=== PATIENT | male | born 1935 | race African-American/Black ===

== ENCOUNTER → 2018-01-08 | Outpatient (CLI) | payer MEDICARE, BC ==
--- NOTE | 2018-01-08 11:04 | CT ---
EXAMINATION TYPE: CT chest wo con DATE OF EXAM: 01/08/2018 COMPARISON: NONE HISTORY: Right lower lung hilar fullness opacity CT DLP: 1032.1 mGycm, Automated exposure control for dose reduction was used. CONTRAST: None TECHNIQUE: Axial images were obtained at 5 mm thick sections. Reconstructed images are reviewed on [email or web address] computer in the coronal plane. FINDINGS: Thyroid is not well visualized during this exam. There is a retroesophageal right subclavia n artery. No suspicious lung nodules or focal infiltrates are present. There may be some thickening of the gino r fissure on the right than the posterior right upper lobe. This was not present previously. Thickeni ng is 1.0 cm. Series 3 image 21. Clinical consideration for atelectasis in the dependent portions of the lungs is recommended. No enlarged mediastinal or hilar adenopathy is evident. The ascending aorta diameter at the level o f the main pulmonary artery is 4.5 cm. The main pulmonary artery diameter at the bifurcation is 5.5 cm. Correlate for pulmonary hypertension. The heart size is enlarged. Coronary artery calcification i s present. Limited CT sections are obtained through the upper abdomen. Abdomen is essentially unremarkable. IMPRESSIONS: 1. 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 2. Marked prominence of the pulmonary arteries with a diameter of 5.5 cm which can be compatible with pulmonary hypertension. 3. Some posterior pleural thickening or fissure thickening may be present. Follow-up is recommended. 4. Retroesophageal right subclavian artery
== END | disposition home or self-care (01) ==
LOC: RADCTMAIN 08:11
PROVIDERS: ATTEND Internal Medicine
DX: I71.2 Thoracic aortic aneurysm, without rupture (principal)
CPT/HCPCS: 71250

== ENCOUNTER 2018-01-30 08:35 | Inpatient (IN) | payer MEDICARE, BC ==
[2018-01-30] MEDS ORDERED: SODIUM CHLORIDE 0.9% 1,000 ML IV ONE (10:11)
[2018-01-30] MEDS ORDERED: fentaNYL (PF) 50 MCG/ML 2 ML AMP IV ONE (11:15)
[2018-01-30] MEDS ORDERED: LIDOCAINE 2% INJ 20 MG/ML SQ ONE (11:20)
[2018-01-30] MEDS ORDERED: VERAPAMIL SYRINGE (5 MG/10 ML) INTRAARTER ONE (11:22)
[2018-01-30] MEDS ORDERED: BIVALIRUDIN BOLUS 250 MG/50 ML IV ONE (11:28)
[2018-01-30] MEDS ORDERED: BIVALIRUDIN 250 MG in SODIUM CHLORIDE 0.9% 40 ML IV ONE (11:29)
[2018-01-30] MEDS ORDERED: MIDAZOLAM 2 MG/2 ML VIAL IV ONE (11:34)
[2018-01-30] MEDS ORDERED: CLOPIDOGREL 75 MG TAB PO ONE (11:34)
[2018-01-30] MEDS ORDERED: IOPAMIDOL-370 125ML BTL INJ ONE (11:46)
[2018-01-30] MEDS ORDERED: BIVALIRUDIN 250 MG in SODIUM CHLORIDE 0.9% 50 ML IV ONE (11:59)
[2018-01-30] MEDS ORDERED: IOPAMIDOL-370 100ML BTL INJ ONE (12:04)
[2018-01-30] MEDS ORDERED: NITROGLYCERIN SL TABS 0.4 MG TAB SUBLINGUAL PRN (12:24)
[2018-01-30] MEDS ORDERED: MAG HYDROX/AL HYDROX/SIMETH 30 ML CUP PO PRN (12:24)
[2018-01-30] MEDS ORDERED: RX INFO: IV CONTRAST WAS GIVEN 1 EACH MISC MISCELLANE PRN (12:24)
[2018-01-30] MEDS ORDERED: ATROPINE SULFATE 0.1 MG/ML 10ML SYRINGE IV PRN (12:24)
[2018-01-30] MEDS ORDERED: SODIUM CHLORIDE 0.9% 1,000 ML IV SCH (12:30)
--- NOTE | 2018-01-30 12:51 | PTCA ---
PERCUTANEOUSTRANS CORORONARY ANGIOGRAPHY CORONARY ANGIOPLASTY PROCEDURE Mr. Feldman is an 82-year-old male with known history of paroxysmal atrial fibrillation, history of hypertension, hyperlipidemia, history of chronic kidney disease, who presented to [facility] with symptoms of chest discomfort and paroxysmal atrial fibrillation with elevation of his troponin. He was evaluated by Dr. Rodriguez and subsequently underwent cardiac catheterization, was found to have severe critical disease involving the mid LAD and right coronary artery. In view of that, and after re-evaluating his renal function, recommendation was made regarding angioplasty and stenting. The procedure as well as the risks and the complication were discussed with the patient who is in full understanding and agreement. PROCEDURE: Patient was brought to slab puller in a fasting semi-sedated state after receiving fentanyl and Benadryl and achieving moderate conscious sedated state. Using Xylocaine anesthesia in the Seldinger technique, a 6-German sheath was introduced in the right radial artery. Selective right coronary angiography performed using 6-German FR4 guiding catheter. After cannulating the right coronary ostium, a 0.014 balanced medium weight J wire was advanced across the lesion and a 0.014 whisper J-wire was advanced, positioned distally. Subsequently, a 4.0 x 12 mm Xience Alpine stent was deployed, postdilated at 16 atmospheres. After the last inflation, after appropriate wait , the balloon and the guidewire were withdrawn back in the guiding catheter. Images were obtained and repeated. Those images reveal stable successful stenting. At that point, the guiding catheter, the balloon and the guidewire were removed and a 6-German EBU 3.75 guiding catheter introduced in the system cannulating the left main and a 0.014 balanced medium weight J-wire was advanced in position in the left circumflex. Subsequently, a whisper J-wire was advanced in the distal LAD. Subsequently, a 3.5 x 18 mm Xience Alpine stent was advanced, deployed and post dilated at 16 atmospheres. After the last inflation, after appropriate wait, the balloon and the guidewire were withdrawn back in the guiding catheter. Images were obtained and repeated. Those images reveal stable successful stenting. At that point, the guiding catheter, the balloon and the guidewire were removed. The sheath was removed. Hemostasis was obtained with deployment of a TR band. There was no immediate complication. Patient is returned to his room in stable condition. Of note, the patient received Angiomax per protocol as well as oral loading dose of clopidogrel. He had chest discomfort and EKG changes with inflation that resolved at the end of the procedure. RESULTS: 1. Successful stenting of the mid right coronary artery with reduction of stenosis from 80% to less than 5%. 2. Successful stenting of the mid left anterior descending artery with reduction in stenosis from 90% to 0%. RECOMMENDATION: Patient will be continued on aspirin, Plavix, beta rashaun and a statin. Anticoagulation will be initiated because of the history of paroxysmal atrial fibrillation. The finding and recommendations were discussed with the patient and his family who are in full understanding and agreement. His renal function will be followed closely. Duration of procedure: 48 minutes. MMODL / IJN: [id number] / GUERRERO
--- NOTE | 2018-01-30 12:54 | LTR ---
January 30, 2018 Re: Jayce Feldman Dear Dr. Michel; I had the opportunity to perform coronary angioplasty and stenting on Mr. Feldman at [facility] on the 30 of January and a full copy of the procedure note will be forwarded to you. In brief, he underwent successful stenting of the mid right coronary artery and the left anterior descending artery using drug-eluting stents. I am hopeful that this procedure will stabilize his status and depending on his progress, further recommendations will be made. Thank you again for allowing me the opportunity to particulate in his care, please feel free to call for any questions. Sincerely yours, MD ANEL Romero / SHARON: [id number] /
[2018-01-30 13:16] VITALS: BMI 43.5
[2018-01-30] MEDS: hydrALAZINE HCL 50 MG TAB PO SCH ×2 (16:20→20:38)
[2018-01-30] MEDS: PANTOPRAZOLE 40 MG TABLET PO SCH (16:20)
--- NOTE | 2018-01-30 16:20 | P.HPIM ---
History of Present Illness H&P Date: 01/30/18 Jayce Feldman is an 82-year-old male who was recently admitted to [facility] after having an episode of chest pain, patient had evidence of non-ST elevation myocardial infarction, he underwent cardiac catheterization by Dr. Mckeon at [facility] and had evidence of significant stenosis in the right coronary artery and in the left anterior descending artery, he was transferred to [facility] for angioplasty. Patient has a known history of hypertension, hyperlipidemia, hypothyroidism, chronic renal insufficiency, and history of paroxysmal atrial fibrillation. Past Medical History Past Medical History: Heart Failure, COPD, Eye Disorder, GERD/Reflux, Hypertension, Osteoarthritis (OA), Prostate Disorder, Sleep Apnea/CPAP/BIPAP, Thyroid Disorder Additional Past Medical History / Comment(s): uses oxygen 2l @[facility], gout, some kidney issues in past, but nothing currently, doesn't uses CPAP, one episode of CHF several years ago, but nothing since, anemia History of Any Multi-Drug Resistant Organisms: None Reported Past Surgical History: Joint Replacement, Orthopedic Surgery Additional Past Surgical History / Comment(s): left knee replaced, cataract surg., ORIF both legs Past Anesthesia/Blood Transfusion Reactions: No Reported Reaction Past Psychological History: No Psychological Hx Reported Smoking Status: Former smoker Past Alcohol Use History: None Reported Additional Past Alcohol Use History / Comment(s): quit smoking 25 yrs. ago, > ppd for 40 yrs. Past Drug Use History: None Reported - Past Family History Brother(s) Family Medical History: Cancer Medications and Allergies Home Medications Medication Instructions Recorded Confirmed Type Allopurinol [Zyloprim] 300 mg PO DAILY 08/11/17 01/30/18 History Ergocalciferol [Vitamin D2] 50,000 unit PO WE 08/11/17 01/30/18 History Ferrous Sulfate [Feosol] 325 mg PO BID 08/11/17 01/30/18 History Furosemide [Lasix] 40 mg PO BID 08/11/17 01/30/18 History Levothyroxine Sodium [Synthroid] 25 mcg PO DAILY 08/11/17 01/30/18 History Montelukast [Singulair] 10 mg PO DAILY 08/11/17 01/30/18 History Omeprazole [PriLOSEC] 20 mg PO BID 08/11/17 01/30/18 History Terazosin HCl 10 mg PO HS 08/11/17 01/30/18 History hydrALAZINE HCL [Apresoline] 50 mg PO TID 08/11/17 01/30/18 History Indacaterol/Glycopyrrolate 1 puff INHALATION RT-DAILY 08/12/17 01/30/18 History [Utibron Neohaler 27.5-15.6 Mcg] Apixaban [Eliquis] 2.5 mg PO BID 01/30/18 01/30/18 History Diltiazem Oral [Cardizem Oral] 60 mg PO BID 01/30/18 01/30/18 History Metoprolol Succinate [Toprol XL] 100 mg PO DAILY 01/30/18 01/30/18 History Allergies Allergy/AdvReac Type Severity Reaction Status Date / Time Penicillins Allergy Itching Verified 01/30/18 13:57 Tetanus Vaccines and Toxoid AdvReac Swelling Verified 01/30/18 13:57 Physical Exam Vitals: Vital Signs Temp Pulse Pulse Resp BP BP Pulse Ox 01/30/18 15:09 97.5 F L 60 18 95/55 96 01/30/18 14:09 97.2 F L 65 18 109/50 98 01/30/18 13:39 65 18 124/53 97 01/30/18 13:09 97 F L 66 18 99/58 95 01/30/18 10:00 98.1 F 74 20 129/77 125/68 92 L Intake and Output 01/30/18 01/30/18 01/30/18 06:59 14:59 22:59 Intake Total 275 Balance 275 Intake: IV 175 Intake, IV Titration 100 Amount Sodium Chloride 0.9% 1, 100 000 ml @ 100 mls/hr IV . Q10H [facility] Rx#:[id number] Other: Weight 130 kg 130 kg In general patient is alert and oriented 3 in no apparent distress HEENT head normocephalic and atraumatic Neck is supple no JVD no goiter no lymphadenopathy Chest exam reveals a few scattered crackles no wheezing Cardiac exam reveals regular heart sounds no murmurs Abdomen is soft nontender no organomegaly Extremity exam reveals no edema no cyanosis or clubbing Thrombosis Risk Factor Assmnt - Choose All That Apply Each Factor Represents 1 point: Abnormal pulmonary function (COPD), Obesity ( BMI >25) Each Risk Factor Represents 3 Points: Age 75 years or older Thrombosis Risk Factor Assessment Total Risk Factor Score: 5 Thrombosis Risk Factor Assessment Level: High Risk Assessment and Plan Plan: #1 non-ST elevation myocardial infarction #2 hypertension #3 hyperlipidemia #4 hypothyroidism #5 mild chronic renal insufficiency #6 paroxysmal atrial fibrillation #7 underlying history of asthma Patient is admitted for angioplasty and stent placement Will follow during this admission for medical management Medications reviewed and reordered Will recheck labs in a.m. Will follow closely
[2018-01-30] MEDS: ATORVASTATIN 80 MG TAB PO SCH (20:37)
[2018-01-30] MEDS: DOXAZOSIN 4 MG TAB PO SCH (20:37)
[2018-01-30] MEDS: FERROUS SULFATE 325 MG TAB PO SCH (20:38)
[2018-01-30] MEDS: ZOLPIDEM 5 MG TAB PO PRN (21:25)
[2018-01-31] MEDS: PANTOPRAZOLE 40 MG TABLET PO SCH ×2 (06:25→17:03)
[2018-01-31] MEDS: LEVOTHYROXINE 25 MCG TAB PO SCH (06:26)
[2018-01-31 06:45] LABS: Anisocytosis Slight; Basophils % (A) 0 %; Eosinophils # (A) 0.2 k/uL (0-0.7); Eosinophils % (A) 4 %; HCT 33.2 % (39.0-53.0); Hypochromasia Marked; Lymphocytes # (A) 0.9 k/uL (1.0-4.8); Lymphocytes % (A) 18 %; MCH 23.9 pg (25.0-35.0); MCHC 30.1 g/dL (31.0-37.0); MCV 79.3 fL (80.0-100.0); Mean Platelet Volume 7.8; Microcytosis Slight; Monocytes # (A) 0.4 k/uL (0-1.0); Monocytes % (A) 9 %; Neutrophils # (A) 3.5 k/uL (1.3-7.7); Neutrophils % (A) 67 %; RBC 4.19 m/uL (4.30-5.90); RDW 18.5 % (11.5-15.5); WBC 5.2 k/uL (3.8-10.6)
[2018-01-31 07:11] LABS: Albumin 3.4 g/dL (3.5-5.0); Calcium 8.7 mg/dL (8.4-10.2); Total Bilirubin 0.2 mg/dL (0.2-1.3); Total Protein 5.8 g/dL (6.3-8.2)
[2018-01-31 07:12] LABS: Platelet Count 95 k/uL (150-450)
[2018-01-31] MEDS: UTIBRON NEOHALER INHALATION SCH (07:59)
[2018-01-31] MEDS: FUROSEMIDE 40 MG TAB PO SCH (09:49)
[2018-01-31] MEDS: METOPROLOL SUCCINATE (ER) 100 MG TAB.ER.24H PO SCH (09:49)
[2018-01-31] MEDS: ALLOPURINOL 300 MG TAB PO SCH (09:49)
[2018-01-31] MEDS: MONTELUKAST 10 MG TAB PO SCH (09:49)
[2018-01-31] MEDS: FERROUS SULFATE 325 MG TAB PO SCH ×2 (09:49→20:46)
[2018-01-31] MEDS: hydrALAZINE HCL 50 MG TAB PO SCH ×3 (09:49→20:46)
[2018-01-31] MEDS: ASPIRIN 81 MG PO SCH (09:50)
[2018-01-31] MEDS ORDERED: ONDANSETRON 4 MG/2 ML VIAL IVP STA (11:55)
[2018-01-31] MEDS ORDERED: ONDANSETRON 4 MG/2 ML VIAL IVP PRN (11:58)
--- NOTE | 2018-01-31 12:28 | P.PN ---
Subjective Progress Note Date: 01/31/18 Jayce Feldman is an 82-year-old male who was recently admitted to [facility] after having an episode of chest pain, patient had evidence of non-ST elevation myocardial infarction, he underwent cardiac catheterization by Dr. Mckeon at [facility] and had evidence of significant stenosis in the right coronary artery and in the left anterior descending artery, he was transferred to [facility] for angioplasty. Patient has a known history of hypertension, hyperlipidemia, hypothyroidism, chronic renal insufficiency, and history of paroxysmal atrial fibrillation. On 01/31/2018 patient is alert and oriented 3 in no apparent distress, he is complaining of generalized weakness and feeling that his knees are buckling down and is and able to walk, otherwise he denies any complaints there is no fever or chills no headache no dizziness no chest pain or shortness of breath no cough no nausea or vomiting no abdominal pain no diarrhea and no urinary symptoms. Objective - Vital Signs Vital signs: Vital Signs Temp 97.0 F L 01/31/18 12:00 Pulse 84 01/31/18 12:00 Resp 18 01/31/18 12:00 BP 143/74 01/31/18 12:00 Pulse Ox 91 L 01/31/18 12:00 Intake & Output 01/30/18 01/31/18 01/31/18 18:59 06:59 18:59 Intake Total 719 120 Output Total 525 Balance 719 -525 120 Weight 130 kg 130.5 kg Intake: IV 175 Intake, IV Titration 100 Amount Sodium Chloride 0.9% 1, 100 000 ml @ 100 mls/hr IV . Q10H [facility] Rx#:[id number] Oral 444 120 Output: Urine 525 Other: # Voids 1 - Exam In general patient is alert and oriented 3 in no apparent distress HEENT head normocephalic and atraumatic Neck is supple no JVD no goiter no lymphadenopathy Chest exam reveals a few scattered crackles no wheezing Cardiac exam reveals regular heart sounds no murmurs Abdomen is soft nontender no organomegaly Extremity exam reveals no edema no cyanosis or clubbing - Labs CBC & Chem 7: 01/31/18 06:20 01/31/18 06:20 Labs: Abnormal Lab Results - Last 24 Hours (Table) 01/31/18 01/31/18 Range/Units 06:20 06:20 RBC 4.19 L (4.30-5.90) m/uL Hgb 10.0 L (13.0-17.5) gm/dL Hct 33.2 L (39.0-53.0) % MCV 79.3 L (80.0-100.0) fL MCH 23.9 L (25.0-35.0) pg MCHC 30.1 L (31.0-37.0) g/dL RDW 18.5 H (11.5-15.5) % Plt Count 95 L (150-450) k/uL Lymphocytes # 0.9 L (1.0-4.8) k/uL Carbon Dioxide 32 H (22-30) mmol/L BUN 38 H (9-20) mg/dL Creatinine 2.00 H (0.66-1.25) mg/dL Total Protein 5.8 L (6.3-8.2) g/dL Albumin 3.4 L (3.5-5.0) g/dL Assessment and Plan Plan: #1 non-ST elevation myocardial infarction #2 hypertension #3 hyperlipidemia #4 hypothyroidism #5 mild chronic renal insufficiency #6 paroxysmal atrial fibrillation #7 underlying history of asthma #8 generalized weakness was gait disturbance Will consult physical therapy patient may need to go to a rehab if he does not improve. Patient is admitted for angioplasty and stent placement Will follow during this admission for medical management Medications reviewed and reordered Will recheck labs in a.m. Will follow closely
[2018-01-31] MEDS: CLOPIDOGREL 75 MG TAB PO SCH (13:31)
[2018-01-31] MEDS ORDERED: METOPROLOL TARTRATE 50 MG TAB PO STA (14:30)
[2018-01-31] MEDS: ATORVASTATIN 80 MG TAB PO SCH (20:45)
[2018-01-31] MEDS: DOXAZOSIN 4 MG TAB PO SCH (20:46)
--- NOTE | 2018-01-31 21:48 | PN ---
PROGRESS NOTE Mr. Feldman is a gentleman with paroxysmal A. fib., hypertension, hyperlipidemia, presented with a non-ST elevation OR and underwent stenting of [address] Cordon yesterday and is doing well. He is on home oxygen, resting comfortably. I am recommending that he can be discharged later on today after he ambulates. His vital signs are stable. His right radial cath site is clean and dry with a good pulse. S1, S2 heard normally. Heart sounds heard distantly. Short systolic murmur noted. Lungs reveal bilateral diminished air entry. Abdomen is soft. Lower extremities reveal diminished pulses. Central nervous system was grossly within normal limits. We will continue current medical regimen and discharge him if he remains stable. MMODL / IJN: [id number] /
[2018-02-01] MEDS: LEVOTHYROXINE 25 MCG TAB PO SCH (06:27)
[2018-02-01] MEDS: PANTOPRAZOLE 40 MG TABLET PO SCH ×2 (06:28→17:22)
[2018-02-01 06:50] LABS: Albumin 3.3 g/dL (3.5-5.0); Calcium 8.4 mg/dL (8.4-10.2); Potassium 5.4 mmol/L (3.5-5.1); Total Bilirubin 0.2 mg/dL (0.2-1.3); Total Protein 5.6 g/dL (6.3-8.2)
[2018-02-01 06:52] LABS: Anisocytosis Slight; Basophils % (A) 0 %; Eosinophils # (A) 0.1 k/uL (0-0.7); Eosinophils % (A) 3 %; HCT 32.2 % (39.0-53.0); HGB 9.6 gm/dL (13.0-17.5); Hypochromasia Marked; Lymphocytes # (A) 0.8 k/uL (1.0-4.8); Lymphocytes % (A) 15 %; MCH 23.6 pg (25.0-35.0); MCHC 29.9 g/dL (31.0-37.0); MCV 78.8 fL (80.0-100.0); Mean Platelet Volume 7.7; Microcytosis Slight; Monocytes # (A) 0.3 k/uL (0-1.0); Monocytes % (A) 7 %; Neutrophils # (A) 3.6 k/uL (1.3-7.7); Neutrophils % (A) 73 %; Platelet Count 115 k/uL (150-450); RBC 4.09 m/uL (4.30-5.90); RDW 18.2 % (11.5-15.5); WBC 4.9 k/uL (3.8-10.6)
[2018-02-01] MEDS: UTIBRON NEOHALER INHALATION SCH (07:36)
[2018-02-01] MEDS: MONTELUKAST 10 MG TAB PO SCH (08:04)
[2018-02-01] MEDS: ALLOPURINOL 300 MG TAB PO SCH (08:04)
[2018-02-01] MEDS: ASPIRIN 81 MG PO SCH (08:04)
[2018-02-01] MEDS: CLOPIDOGREL 75 MG TAB PO SCH (08:04)
[2018-02-01] MEDS: METOPROLOL SUCCINATE (ER) 100 MG TAB.ER.24H PO SCH (08:05)
[2018-02-01] MEDS: FERROUS SULFATE 325 MG TAB PO SCH ×2 (08:05→20:33)
[2018-02-01] MEDS: hydrALAZINE HCL 50 MG TAB PO SCH ×3 (08:05→23:33)
[2018-02-01] MEDS ORDERED: SODIUM POLYSTYRENE SULFONATE 15 GM/60 ML BOTTLE PO STA (10:35)
--- NOTE | 2018-02-01 10:38 | P.PN ---
Subjective Progress Note Date: 02/01/18 Jayce Feldman is an 82-year-old male who was recently admitted to [facility] after having an episode of chest pain, patient had evidence of non-ST elevation myocardial infarction, he underwent cardiac catheterization by Dr. Mckeon at [facility] and had evidence of significant stenosis in the right coronary artery and in the left anterior descending artery, he was transferred to [facility] for angioplasty. Patient has a known history of hypertension, hyperlipidemia, hypothyroidism, chronic renal insufficiency, and history of paroxysmal atrial fibrillation. On 01/31/2018 patient is alert and oriented 3 in no apparent distress, he is complaining of generalized weakness and feeling that his knees are buckling down and is and able to walk, otherwise he denies any complaints there is no fever or chills no headache no dizziness no chest pain or shortness of breath no cough no nausea or vomiting no abdominal pain no diarrhea and no urinary symptoms. On 02/01/2018 patient is alert and oriented 3, complaining of weakness and difficulty walking, otherwise he denies any complaints, kidney function has worsened since yesterday, creatinine is up from 2-2.5 potassium is up to 5.4 at this time will give a stat dose of Kayexalate Will consult nephrology will continue with physical therapy and occupational therapy and consult Dr. Jules for possible rehab admission post discharge Objective - Vital Signs Vital signs: Vital Signs Temp 97.2 F L 02/01/18 08:00 Pulse 84 02/01/18 08:00 Resp 20 02/01/18 08:00 BP 123/78 02/01/18 08:00 Pulse Ox 95 02/01/18 08:00 Intake & Output 01/31/18 02/01/18 02/01/18 18:59 06:59 18:59 Intake Total 360 480 Balance 360 480 Weight 119.5 kg Intake: Oral 360 480 Other: # Voids 3 1 - Exam In general patient is alert and oriented 3 in no apparent distress HEENT head normocephalic and atraumatic Neck is supple no JVD no goiter no lymphadenopathy Chest exam reveals a few scattered crackles no wheezing Cardiac exam reveals regular heart sounds no murmurs Abdomen is soft nontender no organomegaly Extremity exam reveals no edema no cyanosis or clubbing - Labs CBC & Chem 7: 02/01/18 06:07 02/01/18 06:07 Labs: Abnormal Lab Results - Last 24 Hours (Table) 02/01/18 02/01/18 Range/Units 06:07 06:07 RBC 4.09 L (4.30-5.90) m/uL Hgb 9.6 L (13.0-17.5) gm/dL Hct 32.2 L (39.0-53.0) % MCV 78.8 L (80.0-100.0) fL MCH 23.6 L (25.0-35.0) pg MCHC 29.9 L (31.0-37.0) g/dL RDW 18.2 H (11.5-15.5) % Plt Count 115 L (150-450) k/uL Lymphocytes # 0.8 L (1.0-4.8) k/uL Potassium 5.4 H (3.5-5.1) mmol/L Carbon Dioxide 32 H (22-30) mmol/L BUN 41 H (9-20) mg/dL Creatinine 2.50 H (0.66-1.25) mg/dL Total Protein 5.6 L (6.3-8.2) g/dL Albumin 3.3 L (3.5-5.0) g/dL Assessment and Plan Plan: #1 non-ST elevation myocardial infarction #2 hypertension #3 hyperlipidemia #4 hypothyroidism #5 acute on chronic renal failure worsening creatinine is up to 2.5 today Will consult nephrology #6 paroxysmal atrial fibrillation #7 underlying history of asthma #8 generalized weakness was gait disturbance Will consult physical therapy patient may need to go to a rehab if he does not improve. #9 hyperkalemia Will give a dose of Kayexalate Patient is admitted for angioplasty and stent placement Will follow during this admission for medical management Medications reviewed and reordered Will recheck labs in a.m. Will follow closely
[2018-02-01] MEDS: FUROSEMIDE 40 MG TAB PO SCH (11:08)
--- NOTE | 2018-02-01 16:43 | PN ---
PROGRESS NOTE Mr. Jayce Feldman was supposed to be discharged yesterday but developed atrial fibrillation and his discharge was delayed. He is in sinus rhythm today, doing well. He is walking but having a lot of difficulty with his leg strength. He is usually quite limited in activity, uses a walker, but seems to have worsened. He was advised to have some physical therapy and when the patient feels better and stable, he can be discharged. Otherwise, I will leave the discharge timing to Dr. Michel. Vitals are stable. S1-S2 heard normally. Heart sounds are distantly. Lungs are clear. Abdomen and lower extremity exam unchanged. Right radial cath site is clean and dry. The patient can be discharged whenever it is okay with the admitting doctor. Continue current medications for now. MMODL / IJN: [id number] /
[2018-02-01] MEDS: ATORVASTATIN 80 MG TAB PO SCH (20:33)
[2018-02-01] MEDS: DOXAZOSIN 4 MG TAB PO SCH (20:33)
[2018-02-02 06:00] LABS: Anisocytosis Slight; Basophils % (A) 0 %; Eosinophils # (A) 0.2 k/uL (0-0.7); Eosinophils % (A) 4 %; HCT 31.9 % (39.0-53.0); HGB 9.6 gm/dL (13.0-17.5); Hypochromasia Marked; Lymphocytes # (A) 1.1 k/uL (1.0-4.8); Lymphocytes % (A) 23 %; MCH 23.8 pg (25.0-35.0); MCHC 30.2 g/dL (31.0-37.0); MCV 78.6 fL (80.0-100.0); Mean Platelet Volume 7.2; Microcytosis Slight; Monocytes # (A) 0.4 k/uL (0-1.0); Monocytes % (A) 9 %; Neutrophils # (A) 2.9 k/uL (1.3-7.7); Neutrophils % (A) 61 %; Platelet Count 119 k/uL (150-450); RBC 4.06 m/uL (4.30-5.90); RDW 18.3 % (11.5-15.5); WBC 4.7 k/uL (3.8-10.6)
[2018-02-02] MEDS: LEVOTHYROXINE 25 MCG TAB PO SCH (06:33)
[2018-02-02] MEDS: PANTOPRAZOLE 40 MG TABLET PO SCH ×2 (06:33→16:44)
[2018-02-02 06:34] LABS: Albumin 3.1 g/dL (3.5-5.0); Calcium 8.5 mg/dL (8.4-10.2); Potassium 4.7 mmol/L (3.5-5.1); Total Bilirubin 0.2 mg/dL (0.2-1.3); Total Protein 5.6 g/dL (6.3-8.2)
[2018-02-02] MEDS: UTIBRON NEOHALER INHALATION SCH (07:57)
[2018-02-02] MEDS: ASPIRIN 81 MG PO SCH (09:18)
[2018-02-02] MEDS: FERROUS SULFATE 325 MG TAB PO SCH ×2 (09:18→21:56)
[2018-02-02] MEDS: MONTELUKAST 10 MG TAB PO SCH (09:18)
[2018-02-02] MEDS: hydrALAZINE HCL 50 MG TAB PO SCH ×3 (09:18→21:56)
[2018-02-02] MEDS: CLOPIDOGREL 75 MG TAB PO SCH (09:18)
[2018-02-02] MEDS: ALLOPURINOL 300 MG TAB PO SCH (09:18)
[2018-02-02] MEDS: FUROSEMIDE 40 MG TAB PO SCH (09:18)
[2018-02-02] MEDS: METOPROLOL SUCCINATE (ER) 100 MG TAB.ER.24H PO SCH (09:18)
[2018-02-02] MEDS: APIXABAN 2.5 MG TABLET PO SCH ×2 (11:26→21:57)
--- NOTE | 2018-02-02 11:32 | P.PN ---
Subjective Progress Note Date: 02/02/18 Jayce Feldman is an 82-year-old male who was recently admitted to [facility] after having an episode of chest pain, patient had evidence of non-ST elevation myocardial infarction, he underwent cardiac catheterization by Dr. Mckeon at [facility] and had evidence of significant stenosis in the right coronary artery and in the left anterior descending artery, he was transferred to [facility] for angioplasty. Patient has a known history of hypertension, hyperlipidemia, hypothyroidism, chronic renal insufficiency, and history of paroxysmal atrial fibrillation. On 01/31/2018 patient is alert and oriented 3 in no apparent distress, he is complaining of generalized weakness and feeling that his knees are buckling down and is and able to walk, otherwise he denies any complaints there is no fever or chills no headache no dizziness no chest pain or shortness of breath no cough no nausea or vomiting no abdominal pain no diarrhea and no urinary symptoms. On 02/01/2018 patient is alert and oriented 3, complaining of weakness and difficulty walking, otherwise he denies any complaints, kidney function has worsened since yesterday, creatinine is up from 2-2.5 potassium is up to 5.4 at this time will give a stat dose of Kayexalate Will consult nephrology will continue with physical therapy and occupational therapy and consult Dr. Jules for possible rehab admission post discharge 02/02/2018 patient denies any chest pain. Starting some shortness of breath with activity. He is on 3 L nasal cannula satting at 93%. Patient did have a stent to the mid RCA and LAD. Creatinine has climbed to 2.90. Patient has been cleared for discharge by both nephrology and cardiology. Per nephrology okay to continue Lasix 40 mg daily. No NSAIDs. They're recommending a BMP checked on and follow-up in the office on Friday. [facility] to continue with telemetry. Patient will remain in the hospital for another 24 hours to monitor kidney functions heart rate into be evaluated by Dr. Bergeron Objective - Vital Signs Vital signs: Vital Signs Temp 98.9 F 02/02/18 08:00 Pulse 86 02/02/18 08:00 Resp 20 02/02/18 08:00 BP 136/73 02/02/18 08:00 Pulse Ox 93 L 06/04/18 08:00 Intake & Output 02/01/18 02/02/18 02/02/18 18:59 06:59 18:59 Intake Total 1320 700 118 Output Total 100 Balance 1320 600 118 Weight 123 kg Intake: Oral 1320 700 118 Output: Urine 100 Other: Voiding Method Bedside Commode Urinal # Voids 2 1 # Bowel Movements 1 - Exam Head normocephalic Neck supple Lungs diminished at bases Heart regular rate and rhythm S1-S2, no rub or gallop Abdomen is soft nontender nondistended positive bowel sounds no hepatosplenomegaly Extremities no edema Neuro alert and orientated to 3 - Labs CBC & Chem 7: 02/02/18 05:47 02/02/18 05:47 Labs: Abnormal Lab Results - Last 24 Hours (Table) 02/02/18 02/02/18 Range/Units 05:47 05:47 RBC 4.06 L (4.30-5.90) m/uL Hgb 9.6 L (13.0-17.5) gm/dL Hct 31.9 L (39.0-53.0) % MCV 78.6 L (80.0-100.0) fL MCH 23.8 L (25.0-35.0) pg MCHC 30.2 L (31.0-37.0) g/dL RDW 18.3 H (11.5-15.5) % Plt Count 119 L (150-450) k/uL Carbon Dioxide 33 H (22-30) mmol/L BUN 42 H (9-20) mg/dL Creatinine 2.90 H (0.66-1.25) mg/dL Total Protein 5.6 L (6.3-8.2) g/dL Albumin 3.1 L (3.5-5.0) g/dL Assessment and Plan Assessment: #1 non-ST elevation myocardial infarction: Status post heart catheterization with stenting to the mid RCA and LAD. Continue aspirin 81 mg daily and Plavix. Continue beta rashaun and Lipitor #2 hypertension #3 hyperlipidemia #4 hypothyroidism #5 acute on chronic renal failure, stage II. worsening creatinine is up to 2.9 . Discussed with nephrology. Okay to continue Lasix 40 mg by mouth daily. We will follow-up with him in the outpatient setting. #6 paroxysmal atrial fibrillation with an episode of atrial fibrillation and rapid ventricular response. Cardiology has restarted patient's Eliquis 2.5 mg twice a day #7 underlying history of asthma #8 generalized weakness was gait disturbance Will consult physical therapy patient may need to go to a rehab if he does not improve. #9 hyperkalemia Will give a dose of Kayexalate. Potassium normalized Patient will stay in the hospital for another 24 hours. Continue to monitor heart rate and kidney function. Also awaiting evaluation by Dr. Jules for possible inpatient rehab I performed an examination of the patient and discussed their management with the physician Funeral Director'S Assistant. I have reviewed the Physician Funeral Director'S Assistant's notes and agree with the documented findings and plan of care
--- NOTE | 2018-02-02 16:41 | CONS ---
CONSULTATION REASON FOR CONSULT: Renal failure. 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 The patient was transferred from [facility] for intervention after a cardiac catheterization for non ST elevation myocardial infarction. The patient had second cardiac catheterization done on 01/30/2018 with successful stenting of the RCA and LAD. His serum creatinine, however, has increased from 2.0 to 2.5 and this morning it was 2.9. The patient overall states he is feeling good. He denies any chest pains or shortness of breath and he has had good urine output. He remains on small dose of oral Lasix. PAST MEDICAL HISTORY: CKD stage IV, hypertension, CKD mineral bone disorder, gastroesophageal reflux disease, osteoarthritis, obstructive sleep apnea, BPH, hypothyroidism, history of CHF. PAST SURGICAL HISTORY: Left knee arthroplasty, cataract surgery, ORIF of both legs. SOCIAL HISTORY: Negative for smoking, drug abuse or alcohol abuse. Patient was a former smoker, quit 25 years ago. MEDICATIONS: Medications at home include Zyloprim, vitamin D, iron, Lasix, Synthroid, Singulair, Prilosec, hydralazine, Eliquis, Cardizem, Toprol. ALLERGIES: PENICILLIN, TETANUS TOXOID. PHYSICAL EXAMINATION: Patient is comfortable, awake, alert, oriented x3. He is not in any acute distress. On examination, blood pressure is 135/69, heart rate 85 per minute. Patient is afebrile. Examination of the heart: S1, S2. Examination lungs: Bilateral breath sounds are heard. Abdomen is soft, nontender. Examination lower extremity shows trace edema bilaterally. CAMP RECREATION SPECIALIST exam is grossly intact. LAB: Show sodium of 142, potassium 4.7, CO2 33, BUN 42, serum creatinine 2.9, hemoglobin 9.6 g/dL. ASSESSMENT: 1. Acute kidney injury secondary to contrast nephropathy, currently nonoliguric. The patient is not on any IV fluids. He is maintained on a low dose of oral Lasix which I will continue for now. The patient could be discharged from nephrology standpoint, we will see him back for followup in the office in about 4-5 days time. He should have labs done in 2 days time as outpatient. The patient is advised to avoid the use of NSAIDs and continue with the current dose of Lasix. If he is not discharged, I will hold the a.m. dose of Lasix tomorrow morning. 2. Status post non ST elevation myocardial infarction, status post cardiac catheterization and then second cardiac cath with the stenting of RCA and LAD. 3. Hypertension currently controlled. 4. Hypothyroidism, maintained on supplementation. 5. Nutrition vitamin D deficiency, maintained on supplementation as well. 6. Mineral bone disorder. PLAN: The patient can be discharged from nephrology standpoint. He will follow up as outpatient in about 4-5 days time and he should have labs done in 2 days time. If he is not discharged, I will hold a.m. dose of Lasix and the patient can continue with oral Lasix upon discharge. Thank you for this consultation. We will continue to follow the patient with you during his hospitalization. MMILSAL / PHILLIPN: [id number] /
--- NOTE | 2018-02-02 16:44 | PN ---
PROGRESS NOTE Mr. Feldman underwent stenting of [address] Cordon. Yesterday he was reluctant to go home. I am suggesting that he should be discharged with some help at home. This gentleman is quite heavy, has difficulty walking. He will benefit from home health care and probably some home physical therapy as well. He is in sinus rhythm today, although he has history of paroxysmal atrial fibrillation. He will go home on Eliquis 2.5 mg b.i.d., aspirin 81 mg daily, Plavix 75 mg daily. S1, S2 heard normally. Short systolic murmur noted. Lungs reveal improved air entry. Abdomen is soft. Lower extremities reveal diminished pulses. Rest of physical examination is unchanged. MMODL / IJN: [id number] /
[2018-02-02] MEDS: ATORVASTATIN 80 MG TAB PO SCH (21:56)
[2018-02-02] MEDS: DOXAZOSIN 4 MG TAB PO SCH (21:57)
[2018-02-02] MEDS: ZOLPIDEM 5 MG TAB PO PRN (22:04)
--- NOTE | 2018-02-03 04:01 | XR ---
EXAM: XR Left Wrist CLINICAL HISTORY: ITS.REASON XR Reason: fall, pain TECHNIQUE: X-ray left wrist. COMPARISON: No relevant prior studies available. FINDINGS/IMPRESSION: Scaphoid fracture. Osteopenia. DJD.
[2018-02-03] MEDS: HYDROcodone/APAP 10-325MG 1 EACH TAB PO PRN ×3 (04:38→22:11)
[2018-02-03] MEDS: LEVOTHYROXINE 25 MCG TAB PO SCH (06:19)
[2018-02-03 07:29] LABS: Anisocytosis Slight; Basophils % (A) 0 %; Eosinophils # (A) 0.2 k/uL (0-0.7); Eosinophils % (A) 4 %; HCT 32.5 % (39.0-53.0); HGB 9.5 gm/dL (13.0-17.5); Hypochromasia Marked; Lymphocytes % (A) 22 %; MCH 23.1 pg (25.0-35.0); MCHC 29.2 g/dL (31.0-37.0); MCV 78.9 fL (80.0-100.0); Mean Platelet Volume 6.4; Microcytosis Slight; Monocytes # (A) 0.4 k/uL (0-1.0); Monocytes % (A) 8 %; Neutrophils % (A) 63 %; Platelet Count 124 k/uL (150-450); RBC 4.12 m/uL (4.30-5.90); RDW 18.3 % (11.5-15.5); WBC 4.8 k/uL (3.8-10.6)
[2018-02-03 07:41] LABS: Calcium 8.8 mg/dL (8.4-10.2); Potassium 4.8 mmol/L (3.5-5.1)
[2018-02-03] MEDS: UTIBRON NEOHALER INHALATION SCH (08:15)
[2018-02-03] MEDS: hydrALAZINE HCL 50 MG TAB PO SCH ×3 (08:19→22:14)
[2018-02-03] MEDS: METOPROLOL SUCCINATE (ER) 100 MG TAB.ER.24H PO SCH (08:19)
[2018-02-03] MEDS: FERROUS SULFATE 325 MG TAB PO SCH ×2 (08:19→22:13)
[2018-02-03] MEDS: ALLOPURINOL 100 MG TAB PO SCH (08:20)
[2018-02-03] MEDS: ASPIRIN 81 MG PO SCH (08:20)
[2018-02-03] MEDS: APIXABAN 2.5 MG TABLET PO SCH ×2 (08:20→22:15)
[2018-02-03] MEDS: CLOPIDOGREL 75 MG TAB PO SCH (08:20)
[2018-02-03] MEDS: PANTOPRAZOLE 40 MG TABLET PO SCH ×2 (08:20→16:43)
[2018-02-03] MEDS: MONTELUKAST 10 MG TAB PO SCH (08:20)
--- NOTE | 2018-02-03 09:18 | P.PN ---
Subjective Mr. Feldman is a pleasant 82-year-old male past medical history significant for hypertension, dyslipdiemia, hypothyroidism, chronic renal disease, paroxysmal atrial fibrillation and coronary artery disease. He initially presented to [facility] with elevated troponins and underwent diagnostic catheterization which revealed critical disease involving mid-LAD and mid-RCA. He was transferred here and underwent successful angioplasty of mid-LAD and mid-RCA per Dr. Cordon. He has remained in the hospital secondary to increasing weakness and questionable ability to take care of himself at home. Last night while ambulating to the bathroom he slipped and fell while trying to get back in bed. He suffered a left wrist scaphoid fracture. He denies symptoms of chest pain, shortness of breath, dizziness, palpitations, nausea, vomiting or diaphoresis. He states his breathing has improved since his angioplasty. Telemetry tracings have been unremarkable. Blood pressure 151/72 heart rate 72 afebrile maintain oxygen saturation on nasal cannula. Right wrist is clean, dry and intact with strong radial pulse, no evidence of hematoma and no ecchymosis. Denies numbness, tingling or pain to right hand. Objective - Vital Signs Vital signs: Vital Signs Temp 97.8 F 02/03/18 07:18 Pulse 72 02/03/18 07:18 Resp 16 02/03/18 07:18 BP 151/72 02/03/18 07:18 Pulse Ox 100 02/03/18 07:18 Intake & Output 02/02/18 02/03/18 02/03/18 18:59 06:59 18:59 Intake Total 118 Output Total 400 40 Balance -282 -40 Intake: Oral 118 Output: Urine 400 40 Other: Voiding Method Toilet # Voids 3 2 - Exam GENERAL: Well-appearing, well-nourished and in no acute distress. NECK: Supple without JVD or thyromegaly. LUNGS: Breath sounds clear to auscultation bilaterally. Respiration equal and unlabored. No wheezes, rales or rhonchi. HEART: Regular rate and rhythm with systolic murmur at the base, no rubs or gallops. S1 and S2 heard. EXTREMITIES: Normal range of motion, no edema. No clubbing or cyanosis. Peripheral pulses intact. Venkat wrap to left lower arm. - Labs CBC & Chem 7: 02/03/18 06:44 02/03/18 06:44 Labs: Abnormal Lab Results - Last 24 Hours (Table) 02/03/18 02/03/18 Range/Units 06:44 06:44 RBC 4.12 L (4.30-5.90) m/uL Hgb 9.5 L (13.0-17.5) gm/dL Hct 32.5 L (39.0-53.0) % MCV 78.9 L (80.0-100.0) fL MCH 23.1 L (25.0-35.0) pg MCHC 29.2 L (31.0-37.0) g/dL RDW 18.3 H (11.5-15.5) % Plt Count 124 L (150-450) k/uL Carbon Dioxide 32 H (22-30) mmol/L BUN 37 H (9-20) mg/dL Creatinine 2.70 H (0.66-1.25) mg/dL Assessment and Plan Assessment: ASSESSMENT 1. NSTEMI, s/p angioplasty of mid-LAD and mid RCA. 2. Coronary artery disease 3. Paroxysmal atrial fibrillation on termite treater anticoagulation 4. Hypertension 5. Dyslipidemia 6. Acute on chronic kidney disease, GFR 24. Stage 4 7. Generalized weakness PLAN Continue current medical regimen. Stable from a cardiac perspective. Follow up with Dr. Rodriguez in 1 week after discharge. Nurse Practitioner note has been reviewed, I agree with a documented findings and plan of care. Patient was seen and examined.
[2018-02-03] MEDS ORDERED: ERGOCALCIFEROL 50,000 UNIT CAP PO SCH (12:00)
--- NOTE | 2018-02-03 12:08 | P.CNOR ---
History of Present Illness - HPI Consult date: 02/03/18 History of present illness: This is an 82-year-old male admitted for cardiac evaluation. Orthopedics was consulted due to left hand pain. Patient states that he had a fall when walking from the bathroom to his bed. Patient states that he missed his bed when he tried to sit down and landed on the floor. Patient states that his left hand is very sore now. Patient denies any fever/chills, numbness, weakness , tingling, abdominal pain, shortness of breath or chest pain. Review of Systems See HPI. Past Medical History Past Medical History: Atrial Fibrillation, Heart Failure, COPD, Eye Disorder, GERD/Reflux, Hypertension, Osteoarthritis (OA), Prostate Disorder, Sleep Apnea/ CPAP/BIPAP, Thyroid Disorder Additional Past Medical History / Comment(s): uses oxygen 2l @[facility], gout, anemia, kidney disease History of Any Multi-Drug Resistant Organisms: None Reported Past Surgical History: Joint Replacement, Orthopedic Surgery Additional Past Surgical History / Comment(s): left knee replaced, cataract surg., ORIF both legs Past Anesthesia/Blood Transfusion Reactions: No Reported Reaction Past Psychological History: No Psychological Hx Reported Smoking Status: Former smoker Past Alcohol Use History: None Reported Additional Past Alcohol Use History / Comment(s): quit smoking 25 yrs. ago, > ppd for 40 yrs. Past Drug Use History: None Reported - Past Family History Brother(s) Family Medical History: Cancer Medications and Allergies Home Medications Medication Instructions Recorded Confirmed Type Allopurinol [Zyloprim] 300 mg PO DAILY 08/11/17 01/30/18 History Ergocalciferol [Vitamin D2] 50,000 unit PO WE 08/11/17 01/30/18 History Ferrous Sulfate [Feosol] 325 mg PO BID 08/11/17 01/30/18 History Furosemide [Lasix] 40 mg PO BID 08/11/17 01/30/18 History Levothyroxine Sodium [Synthroid] 25 mcg PO DAILY 08/11/17 01/30/18 History Montelukast [Singulair] 10 mg PO DAILY 08/11/17 01/30/18 History Omeprazole [PriLOSEC] 20 mg PO BID 08/11/17 01/30/18 History Terazosin HCl 10 mg PO HS 08/11/17 01/30/18 History hydrALAZINE HCL [Apresoline] 50 mg PO TID 08/11/17 01/30/18 History Indacaterol/Glycopyrrolate 1 puff INHALATION RT-DAILY 08/12/17 01/30/18 History [Utibron Neohaler 27.5-15.6 Mcg] Apixaban [Eliquis] 2.5 mg PO BID 01/30/18 01/30/18 History Diltiazem Oral [Cardizem Oral] 60 mg PO BID 01/30/18 01/30/18 History Metoprolol Succinate [Toprol XL] 100 mg PO DAILY 01/30/18 01/30/18 History Allergies Allergy/AdvReac Type Severity Reaction Status Date / Time Penicillins Allergy Itching Verified 01/30/18 13:57 Tetanus Vaccines and Toxoid AdvReac Swelling Verified 01/30/18 13:57 Physical Examination On exam of the left hand skin is intact. The left hand is tender to palpation over the radial aspect of the left wrist. There is tenderness to palpation in the anatomical snuffbox. Mild swelling. No surrounding erythema or ecchymosis. Sensation intact. Patient has good range of motion of the fingers of the left hand. Left upper extremity is warm and well perfused. Neurovascular status and circulatory status are intact. Results X-rays of the left hand showed nondisplaced fracture of the scaphoid. - Labs Labs: Abnormal Lab Results - Last 24 Hours (Table) 02/03/18 02/03/18 Range/Units 06:44 06:44 RBC 4.12 L (4.30-5.90) m/uL Hgb 9.5 L (13.0-17.5) gm/dL Hct 32.5 L (39.0-53.0) % MCV 78.9 L (80.0-100.0) fL MCH 23.1 L (25.0-35.0) pg MCHC 29.2 L (31.0-37.0) g/dL RDW 18.3 H (11.5-15.5) % Plt Count 124 L (150-450) k/uL Carbon Dioxide 32 H (22-30) mmol/L BUN 37 H (9-20) mg/dL Creatinine 2.70 H (0.66-1.25) mg/dL H & H 0602/01/18 02/02/18 Range/Units 06:20 06:07 05:47 Hgb 10.0 L 9.6 L 9.6 L (13.0-17.5) gm/dL Hct 33.2 L 32.2 L 31.9 L (39.0-53.0) % 02/03/18 Range/Units 06:44 Hgb 9.5 L (13.0-17.5) gm/dL Hct 32.5 L (39.0-53.0) % Result Diagrams: 02/03/18 06:44 02/03/18 06:44 Assessment and Plan (1) Fracture of scaphoid bone of left wrist Current Visit: Yes Status: Acute Code(s): S62.002A - UNSP FRACTURE OF NAVICULAR BONE OF LEFT WRIST, INIT SNOMED Code(s): 95919294 Plan: 1. Thumb spica removable brace to the left hand. 2. Patient is to be nonweightbearing to the left upper extremity. 3. Rest ice and elevate the left upper extremity. 4. Continue pain control. 5. No surgical intervention planned. Patient may follow up as an outpatient with [facility].
--- NOTE | 2018-02-03 14:16 | P.PN ---
Subjective Progress Note Date: 02/03/18 Jayce Feldman is an 82-year-old male who was recently admitted to [facility] after having an episode of chest pain, patient had evidence of non-ST elevation myocardial infarction, he underwent cardiac catheterization by Dr. Mckeon at [facility] and had evidence of significant stenosis in the right coronary artery and in the left anterior descending artery, he was transferred to [facility] for angioplasty. Patient has a known history of hypertension, hyperlipidemia, hypothyroidism, chronic renal insufficiency, and history of paroxysmal atrial fibrillation. On 01/31/2018 patient is alert and oriented 3 in no apparent distress, he is complaining of generalized weakness and feeling that his knees are buckling down and is and able to walk, otherwise he denies any complaints there is no fever or chills no headache no dizziness no chest pain or shortness of breath no cough no nausea or vomiting no abdominal pain no diarrhea and no urinary symptoms. On 02/01/2018 patient is alert and oriented 3, complaining of weakness and difficulty walking, otherwise he denies any complaints, kidney function has worsened since yesterday, creatinine is up from 2-2.5 potassium is up to 5.4 at this time will give a stat dose of Kayexalate Will consult nephrology will continue with physical therapy and occupational therapy and consult Dr. Jules for possible rehab admission post discharge 02/02/2018 patient denies any chest pain. Starting some shortness of breath with activity. He is on 3 L nasal cannula satting at 93%. Patient did have a stent to the mid RCA and LAD. Creatinine has climbed to 2.90. Patient has been cleared for discharge by both nephrology and cardiology. Per nephrology okay to continue Lasix 40 mg daily. No NSAIDs. They're recommending a BMP checked on and follow-up in the office on Friday. Patient will be transferred off of [facility] to continue with telemetry. Patient will remain in the hospital for another 24 hours to monitor kidney functions heart rate into be evaluated by Dr. Bergeron 02/03/2018 patient had a fall yesterday evening. He was on his way back from the bathroom and went to sit down on the bed. He missed judged the distance to the bed and fell to the ground landing on his left wrist. He was found to have evidence of a scaphoid fracture on x-ray. Patient has been seen by orthopedics. And brace has been placed on the left wrist. Patient initially had a consult placed for Dr. Jules. He is apparently on vacation and unable to evaluate patient. Patient was evaluated by physical therapy one more time before he can proceed to be transferred to [facility]. Patient denies any chest pain or shortness of breath. Denies any nausea or vomiting. He's currently on 3 L nasal cannula which she is on at home Objective - Vital Signs Vital signs: Vital Signs Temp 97.8 F 02/03/18 07:18 Pulse 72 02/03/18 08:25 Resp 16 02/03/18 08:25 BP 151/72 02/03/18 07:18 Pulse Ox 100 02/03/18 07:18 Intake & Output 02/02/18 02/03/18 02/03/18 18:59 06:59 18:59 Intake Total 118 Output Total 400 40 Balance -282 -40 Intake: Oral 118 Output: Urine 400 40 Other: Voiding Method Toilet Toilet # Voids 3 2 - Exam Head normocephalic Neck supple Lungs diminished at bases Heart regular rate and rhythm S1-S2, no rub or gallop Abdomen is soft nontender nondistended positive bowel sounds no hepatosplenomegaly Extremities no edema of the lower extremities. Left wrist is in a brace. Did have some mild swelling. Neuro alert and orientated to 3 - Labs CBC & Chem 7: 02/03/18 06:44 02/03/18 06:44 Labs: Abnormal Lab Results - Last 24 Hours (Table) 02/03/18 02/03/18 Range/Units 06:44 06:44 RBC 4.12 L (4.30-5.90) m/uL Hgb 9.5 L (13.0-17.5) gm/dL Hct 32.5 L (39.0-53.0) % MCV 78.9 L (80.0-100.0) fL MCH 23.1 L (25.0-35.0) pg MCHC 29.2 L (31.0-37.0) g/dL RDW 18.3 H (11.5-15.5) % Plt Count 124 L (150-450) k/uL Carbon Dioxide 32 H (22-30) mmol/L BUN 37 H (9-20) mg/dL Creatinine 2.70 H (0.66-1.25) mg/dL Assessment and Plan Assessment: #1 non-ST elevation myocardial infarction: Status post heart catheterization with stenting to the mid RCA and LAD. Continue aspirin 81 mg daily and Plavix. Continue beta rashaun and Lipitor #2 hypertension #3 hyperlipidemia #4 hypothyroidism #5 acute on chronic renal failure, stage III. Creatinine is down to 2.70. Nephrology is on held the Lasix. #6 paroxysmal atrial fibrillation with an episode of atrial fibrillation and rapid ventricular response. Cardiology has restarted patient's Eliquis 2.5 mg twice a day #7 underlying history of asthma #8 generalized weakness was gait disturbance Will consult physical therapy patient may need to go to a rehab if he does not improve. #9 hyperkalemia Will give a dose of Kayexalate. Potassium normalized Patient has been cleared by consulting physicians for discharge. Patient is to be evaluated by physical therapy. Anticipate discharge to [facility] tomorrow I performed an examination of the patient and discussed their management with the physician Reporting Process Consultant. I have reviewed the Physician Reporting Process Consultant's notes and agree with the documented findings and plan of care
[2018-02-03] MEDS: DOXAZOSIN 4 MG TAB PO SCH (22:13)
[2018-02-03] MEDS: ATORVASTATIN 80 MG TAB PO SCH (22:15)
--- NOTE | 2018-02-03 22:30 | PN ---
PROGRESS NOTE Patient is seen for followup for acute kidney injury secondary to contrast nephropathy. Renal function has improved today. However, patient fell yesterday and sustained a fracture in his left wrist. There are plans for a splint/brace from orthopedic standpoint. On examination today, blood pressure was 151/72, heart rate 82 per minute. Patient is afebrile. EXAMINATION OF THE HEART: S1, S2. EXAMINATION OF LUNGS: Bilateral breath sounds are heard. ABDOMEN: Soft, non-tender. Examination of lower extremities shows trace edema bilaterally. DRESSMAKER HELPER exam is grossly intact. Labs show sodium 140, potassium 4.8, BUN 37, serum creatinine 2.7, hemoglobin 9.5 g/dL. ASSESSMENT: 1. Acute kidney injury secondary to contrast nephropathy, non-oliguric. Renal function is improving. We can resume Lasix from tomorrow. 2. Hypertension, currently controlled. 3. Status post [id number] myocardial infarction, status post cardiac catheterization and stenting of left anterior descending coronary artery and right coronary artery. 4. Status post fall and fracture in the left wrist with plans for brace and splint from orthopedic standpoint. PLAN: Resume Lasix in a.m. MMODL / IJN: [id number] /
[2018-02-04] MEDS: LEVOTHYROXINE 25 MCG TAB PO SCH (06:13)
[2018-02-04] MEDS: HYDROcodone/APAP 10-325MG 1 EACH TAB PO PRN (07:10)
[2018-02-04] MEDS: PANTOPRAZOLE 40 MG TABLET PO SCH (07:44)
[2018-02-04] MEDS: ALLOPURINOL 100 MG TAB PO SCH (07:44)
[2018-02-04] MEDS: APIXABAN 2.5 MG TABLET PO SCH (07:45)
[2018-02-04] MEDS: ASPIRIN 81 MG PO SCH (07:45)
[2018-02-04] MEDS: CLOPIDOGREL 75 MG TAB PO SCH (07:45)
[2018-02-04] MEDS: hydrALAZINE HCL 50 MG TAB PO SCH (07:46)
[2018-02-04] MEDS: FERROUS SULFATE 325 MG TAB PO SCH (07:46)
[2018-02-04] MEDS: METOPROLOL SUCCINATE (ER) 100 MG TAB.ER.24H PO SCH (07:46)
[2018-02-04] MEDS: MONTELUKAST 10 MG TAB PO SCH (07:46)
[2018-02-04 08:33] LABS: Anisocytosis Slight; Basophils % (A) 0 %; Eosinophils # (A) 0.1 k/uL (0-0.7); Eosinophils % (A) 3 %; HCT 31.7 % (39.0-53.0); HGB 9.9 gm/dL (13.0-17.5); Hypochromasia Moderate; Lymphocytes # (A) 1.1 k/uL (1.0-4.8); Lymphocytes % (A) 21 %; MCH 24.2 pg (25.0-35.0); MCHC 31.3 g/dL (31.0-37.0); MCV 77.2 fL (80.0-100.0); Mean Platelet Volume 8.2; Microcytosis Slight; Monocytes # (A) 0.4 k/uL (0-1.0); Monocytes % (A) 8 %; Neutrophils # (A) 3.3 k/uL (1.3-7.7); Neutrophils % (A) 65 %; Platelet Count 147 k/uL (150-450); RBC 4.11 m/uL (4.30-5.90); RDW 18.1 % (11.5-15.5); WBC 5.2 k/uL (3.8-10.6)
--- NOTE | 2018-02-04 08:45 | P.PN ---
Subjective Progress Note Date: 02/04/18 This is an 82 year-old male who is being seen by orthopedics for left scaphoid fracture. Patient states that he has less pain now that he has a brace. Patient denies any new symptoms or complaints. Patient denies any fever/chills, numbness , weakness, tingling, abdominal pain, shortness of breath or chest pain. Objective - Vital Signs Vital signs: Vital Signs Temp 98.6 F 02/03/18 21:45 Pulse 88 02/03/18 23:55 Resp 16 02/03/18 23:55 BP 144/68 02/03/18 21:45 Pulse Ox 98 02/03/18 21:45 Intake & Output 02/03/18 02/04/18 02/04/18 18:59 06:59 18:59 Intake Total 400 Output Total 300 Balance 100 Weight 98.8 kg Intake: Oral 400 Output: Urine 300 Other: Voiding Method Toilet Toilet # Voids 2 # Bowel Movements 1 - Exam On exam brace is intact to the left hand. Sensation intact. Capillary refill is normal at less than 2 seconds. Neurovascular status and circulatory status are intact. - Labs CBC & Chem 7: 02/04/18 08:19 02/03/18 06:44 Labs: Abnormal Lab Results - Last 24 Hours (Table) 02/04/18 Range/Units 08:19 RBC 4.11 L (4.30-5.90) m/uL Hgb 9.9 L (13.0-17.5) gm/dL Hct 31.7 L (39.0-53.0) % MCV 77.2 L (80.0-100.0) fL MCH 24.2 L (25.0-35.0) pg RDW 18.1 H (11.5-15.5) % Plt Count 147 L (150-450) k/uL Assessment and Plan (1) Fracture of scaphoid bone of left wrist Current Visit: Yes Status: Acute Code(s): S62.002A - UNSP FRACTURE OF NAVICULAR BONE OF LEFT WRIST, INIT SNOMED Code(s): 22817306 Plan: 1. Thumb spica removable brace to the left hand. 2. Patient is to be nonweightbearing to the left upper extremity. 3. Rest ice and elevate the left upper extremity. 4. Continue pain control. 5. No surgical intervention planned. Patient may follow up as an outpatient with [facility].
[2018-02-04 09:09] LABS: Calcium 8.9 mg/dL (8.4-10.2); Potassium 4.8 mmol/L (3.5-5.1)
[2018-02-04 10:07] VITALS: BP 118/77; PULSE 87; RESP 18; TEMP 98.1
--- NOTE | 2018-02-04 10:16 | P.DS ---
Providers Date of admission: 01/30/18 10:05 Expected date of discharge: 02/04/18 Attending physician: Brnedan Mcgill Consults: 01/30/18 12:24 Consult Physician Routine Consulting Provider: [facility] Consult Reason/Comments: Post Interventional patient Do you want consulting provider notified?: Already Contacted 01/31/18 12:28 Consult Physician Routine Consulting Provider: Jamel Bergeron Consult Reason/Comments: physical debility, gait distubance Do you want consulting provider notified?: Yes 02/01/18 10:31 Consult Physician Routine Consulting Provider: Eileen Barajas Consult Reason/Comments: acute on chronic renal failure Do you want consulting provider notified?: Yes 02/03/18 05:42 Consult Physician Routine Consulting Provider: Dimitry Kasper Consult Reason/Comments: new scaphoid fracture left wrist Do you want consulting provider notified?: Yes Primary care physician: [facility] Course: Diagnoses on discharge: #1 non-ST elevation myocardial infarction: Status post heart catheterization with stenting to the mid RCA and LAD. Continue aspirin 81 mg daily and Plavix. Continue beta rashaun and Lipitor #2 hypertension #3 hyperlipidemia #4 hypothyroidism #5 acute on chronic renal failure, stage III. Creatinine is down to 2.44. Nephrology advised to resume Lasix. #6 paroxysmal atrial fibrillation with an episode of atrial fibrillation and rapid ventricular response. Cardiology has restarted patient's Eliquis 2.5 mg twice a day #7 underlying history of asthma #8 generalized weakness with gait disturbance, patient will be discharged to [facility] for rehab. #9 hyperkalemia given a dose of Kayexalate. Potassium normalized. #10 Fall with right wrist fracture seen by [facility] has a brace on right wrist Hospital course: Jayce Feldman is an 82-year-old male who [place] [facility] [place] an episode of chest pain, patient had evidence of non-ST elevation myocardial infarction, he underwent cardiac catheterization by Dr. Mckeon at [facility] and had evidence of significant stenosis in the right coronary artery and in the left anterior descending artery, he was transferred to [facility] for angioplasty. Patient has a known history of hypertension, hyperlipidemia, hypothyroidism, chronic renal insufficiency, and history of paroxysmal atrial fibrillation. On 01/31/2018 patient is alert and oriented 3 in no apparent distress, he is complaining of generalized weakness and feeling that his knees are buckling down and is and able to walk, otherwise he denies any complaints there is no fever or chills no headache no dizziness no chest pain or shortness of breath no cough no nausea or vomiting no abdominal pain no diarrhea and no urinary symptoms. On 02/01/2018 patient is alert and oriented 3, complaining of weakness and difficulty walking, otherwise he denies any complaints, kidney function has worsened since yesterday, creatinine is up from 2-2.5 potassium is up to 5.4 at this time will give a stat dose of Kayexalate Will consult nephrology will continue with physical therapy and occupational therapy and consult Dr. Jules for possible rehab admission post discharge 02/02/2018 patient denies any chest pain. Starting some shortness of breath with activity. He is on 3 L nasal cannula satting at 93%. Patient did have a stent to the mid RCA and LAD. Creatinine has climbed to 2.90. Patient has been cleared for discharge by both nephrology and cardiology. Per nephrology okay to continue Lasix 40 mg daily. No NSAIDs. They're recommending a BMP checked on and follow-up in the office on Friday. Patient will be transferred [facility] to continue with telemetry. Patient will remain in the hospital for another 24 hours to monitor kidney functions heart rate into be evaluated by Dr. Bergeron 02/03/2018 patient had a fall yesterday evening. He was on his way back from the bathroom and went to sit down on the bed. He missed judged the distance to the bed and fell to the ground landing on his left wrist. He was found to have evidence of a scaphoid fracture on x-ray. Patient has been seen by orthopedics. And brace has been placed on the left wrist. Patient initially had a consult placed for Dr. Jules. He is apparently on vacation and unable to evaluate patient. Patient was evaluated by physical therapy one more time before he can proceed to be transferred to [facility]. Patient denies any chest pain or shortness of breath. Denies any nausea or vomiting. He's currently on 3 L nasal cannula which she is on at home. 02/04/2018 patient is feeling better and he is alert and oriented 3 he is sitting up in a chair he is able to walk to the bathroom and back he denies any fever or chills no headache or dizziness no chest pain no shortness of breath no cough no nausea or vomiting no abdominal pain no diarrhea and no urinary symptoms. Patient will be transferred to [facility] for rehab will follow at [facility] possible discharge to home in the next 2 weeks Plan - Discharge Summary Discharge Rx Participant: No New Discharge Prescriptions: New Aspirin 81 mg PO DAILY chew Atorvastatin [Lipitor] 80 mg PO HS tab Clopidogrel [Plavix] 75 mg PO DAILY tab HYDROcodone/APAP 10-325MG [[place] 10-325] 1 each PO Q8H PRN tab PRN Reason: Pain Nitroglycerin Sl Tabs [Nitrostat] 0.4 mg SUBLINGUAL Q5M PRN tab PRN Reason: Chest Pain Continue Ferrous Sulfate [Iron (65 MG Elemental)] 325 mg PO BID hydrALAZINE HCL [Apresoline] 50 mg PO TID Omeprazole [PriLOSEC] 20 mg PO BID Montelukast [Singulair] 10 mg PO DAILY Allopurinol [Zyloprim] 300 mg PO DAILY Levothyroxine Sodium [Synthroid] 25 mcg PO DAILY Furosemide [Lasix] 40 mg PO BID Ergocalciferol [Vitamin D2 (DRISDOL)] 50,000 unit PO WE Terazosin HCl 10 mg PO HS Indacaterol/Glycopyrrolate [Utibron Neohaler 27.5-15.6 Mcg] 1 puff INHALATION RT-DAILY Apixaban [Eliquis] 2.5 mg PO BID Metoprolol Succinate [Toprol XL] 100 mg PO DAILY Discontinued Diltiazem Oral [Cardizem Oral] 60 mg PO BID Discharge Medication List Allopurinol [Zyloprim] 300 mg PO DAILY 08/11/17 [History] Ergocalciferol [Vitamin D2 (DRISDOL)] 50,000 unit PO WE 08/11/17 [History] Ferrous Sulfate [Iron (65 MG Elemental)] 325 mg PO BID 08/11/17 [History] Furosemide [Lasix] 40 mg PO BID 08/11/17 [History] Levothyroxine Sodium [Synthroid] 25 mcg PO DAILY 08/11/17 [History] Montelukast [Singulair] 10 mg PO DAILY 08/11/17 [History] Omeprazole [PriLOSEC] 20 mg PO BID 08/11/17 [History] Terazosin HCl 10 mg PO HS 08/11/17 [History] hydrALAZINE HCL [Apresoline] 50 mg PO TID 08/11/17 [History] Indacaterol/Glycopyrrolate [[place]ibron Neohaler 27.5-15.6 Mcg] 1 puff INHALATION RT -DAILY 08/12/17 [History] Apixaban [Eliquis] 2.5 mg PO BID 01/30/18 [History] Metoprolol Succinate [Toprol XL] 100 mg PO DAILY 01/30/18 [History] Aspirin 81 mg PO DAILY chew 02/04/18 [Rx] Atorvastatin [Lipitor] 80 mg PO HS tab 02/04/18 [Rx] Clopidogrel [Plavix] 75 mg PO DAILY tab 02/04/18 [Rx] HYDROcodone/APAP 10-325MG [[place] 10-325] 1 each PO Q8H PRN tab 02/04/18 [Rx] Nitroglycerin Sl Tabs [Nitrostat] 0.4 mg SUBLINGUAL Q5M PRN tab 02/04/18 [Rx] Follow up Appointment(s)/Referral(s): Eileen Barajas MD [STAFF PHYSICIAN] - 1 Week Sabas Cordon MD [STAFF PHYSICIAN] - 02/06/18 9:45 am [facility], [NON-STAFF] - As Needed Jeremias Rao MD [STAFF PHYSICIAN] - 1 Week Patient Instructions/Handouts: *Surgery [facility] - After Heart Catheterization - Overhead Crane Inspector Instructions, Heart Healthy Diet (DC), Coronary Intravascular Stent Placement (DC) Activity/Diet/Wound Care/Special Instructions: Thumb spica brace ordered through [facility]: #[phone] BMP on for follow up
[2018-02-04] MEDS ORDERED: FUROSEMIDE 10 MG/ML 4 ML VIAL IV STA (10:41)
[2018-02-04] MEDS: UTIBRON NEOHALER INHALATION SCH (12:10)
--- NOTE | 2018-02-04 17:46 | PN ---
PROGRESS NOTE Patient is seen for followup for acute kidney injury and chronic kidney disease. The patient is actually being discharged today. He states he is feeling well. He denies any significant complaints. EXAMINATION: Blood pressure was this morning 118/77, heart rate 87 per minute. Patient is afebrile. Examination of the heart: S1, S2. Examination lungs: Bilateral breath sounds are heard. Decreased breath sounds bases. Abdomen is soft, nontender. Examination lower extremities shows edema 1+ bilaterally. HOUSE ADMIN exam is grossly intact. LABS SHOW: Sodium 142, potassium 4.8, chloride 99, BUN 36, serum creatinine 2.4, hemoglobin 9.9 g/dL. ASSESSMENT: 1. Acute kidney injury secondary to contrast nephropathy, currently improving. 2. 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 3. Status post cardiac catheterization with stenting of right coronary artery and left anterior descending after non ST elevation myocardial infarction. 4. Mild hyperkalemia associated with acute kidney injury, now resolved. PLAN: Patient can be discharged from nephrology standpoint. We will resume Lasix 40 mg p.o. daily. I will give him one dose of IV Lasix prior to discharge. We will see him back for followup in the office in about 1 week's time. MMODL / IJN: [id number] /
[2018-02-05] MEDS ORDERED: FUROSEMIDE 40 MG TAB PO SCH (09:00)
== END 2018-02-04 12:50 | DRG 247 ==
LOC: 6SEL 10:05 → 5MS5E 02-02 13:11
PROVIDERS: ADMIT Internal Medicine; ATTEND Internal Medicine
PROC: 027135Z Dilation of Coronary Artery, Two Arteries with Two Drug-eluting Intraluminal Devices, Percutaneous Approach (ICD-10-PCS; principal; 2018-01-30 11:10)
PROC: B2111ZZ Fluoroscopy of Multiple Coronary Arteries using Low Osmolar Contrast (ICD-10-PCS; 2018-01-30 11:10)
DX: I21.4 Non-ST elevation (NSTEMI) myocardial infarction (principal); N17.9 Acute kidney failure, unspecified; I13.0 Hypertensive heart and chronic kidney disease with heart failure and stage 1 through stage 4 chronic kidney disease, or unspecified chronic kidney disease; N18.4 Chronic kidney disease, stage 4 (severe); E03.9 Hypothyroidism, unspecified; E55.9 Vitamin D deficiency, unspecified; T50.8X5A Adverse effect of diagnostic agents, initial encounter; E78.5 Hyperlipidemia, unspecified; E87.5 Hyperkalemia; G47.33 Obstructive sleep apnea (adult) (pediatric); N40.0 Benign prostatic hyperplasia without lower urinary tract symptoms; I25.10 Atherosclerotic heart disease of native coronary artery without angina pectoris; I25.2 Old myocardial infarction; I48.0 Paroxysmal atrial fibrillation; I50.9 Heart failure, unspecified; J44.9 Chronic obstructive pulmonary disease, unspecified; K21.9 Gastro-esophageal reflux disease without esophagitis; M89.9 Disorder of bone, unspecified; N14.1 Nephropathy induced by other drugs, medicaments and biological substances; S62.002A Unspecified fracture of navicular [scaphoid] bone of left wrist, initial encounter for closed fracture; W01.0XXA Fall on same level from slipping, tripping and stumbling without subsequent striking against object, initial encounter; Y92.230 Patient room in hospital as the place of occurrence of the external cause; Z79.01 Long term (current) use of anticoagulants; Z79.02 Long term (current) use of antithrombotics/antiplatelets; Z79.82 Long term (current) use of aspirin; Z87.891 Personal history of nicotine dependence; Z99.81 Dependence on supplemental oxygen
CPT/HCPCS: 80048; 80053; 85025; 94640; 94760

== ENCOUNTER → 2019-04-20 | Outpatient (CLI) | payer MEDICARE, BC ==
--- NOTE | 2019-04-20 13:14 | CT ---
EXAMINATION TYPE: CT chest wo con DATE OF EXAM: 04/20/2019 COMPARISON: 01/08/2018 HISTORY: 83-year-old male thoracic aortic aneurysm TECHNIQUE: Contiguous axial scanning of the chest without IV contrast. Coronal and sagittal reconstru ctions performed. CT DLP: 517.3 mGycm Automated exposure control for dose reduction was used. FINDINGS: Heart borderline to mildly enlarged. Coronary vessel calcifications are present. Aortic root is ectatic at 3.7 cm, unchanged. Ascending aorta and proximal arch currently measured at 4.2 cm versus 4.5 cm, previously, not signifi cantly changed. 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 Upper descending thoracic aorta measures 3.8 cm, unchanged. Lower descending thoracic aorta measures 3.3 cm, unchanged. Large caliber to the main right and left pulmonary arteries measuring up to 4.2 cm compatible with un derlying pulmonary arterial hypertension. No thoracic lymphadenopathy by CT size criteria. Mild centrilobular emphysema and some strandy atelectasis or scarring posterior mid to lower lungs. N o consolidation or pleural effusion. Visualized upper abdomen shows a cortical hypodensity posterior upper pole right kidney measuring 2.1 cm, slightly larger than 01/08/2018, suggesting a cyst. Scattered colonic diverticulosis. Kidneys pb ear somewhat small suggesting underlying chronic medical renal disease. Bones: Some type of retained metallic fragment is present in the right paramedian posterior soft tiss ues. No osseous destructive process. IMPRESSION: 1. COPD WITH MILD EMPHYSEMA. 2. UNDERLYING PULMONARY ARTERIAL HYPERTENSION. THE DEGREE OF PULMONARY ARTERIAL ENLARGEMENT APPEARS O UT OF PROPORTION TO THE DEGREE OF EMPHYSEMA. CLINICALLY CORRELATE. 3. ANEURYSMAL THORACIC AORTA (ASCENDING 4.2 CM AND DESCENDING MEASURING UP TO 3.8 CM), NOT SIGNIFICAN TLY CHANGED FROM PRIOR.
== END | disposition home or self-care (01) ==
LOC: RADCTMAIN 11:42
PROVIDERS: ATTEND Internal Medicine
DX: I71.2 Thoracic aortic aneurysm, without rupture (principal); J43.9 Emphysema, unspecified; I27.21 Secondary pulmonary arterial hypertension
CPT/HCPCS: 71250

== ENCOUNTER → 2020-03-24 | Outpatient (CLI) | payer MEDICARE ==
--- NOTE | 2020-03-24 17:00 | US ---
EXAMINATION TYPE: US kidneys/renal and bladder DATE OF EXAM: 03/24/2020 COMPARISON: US 10/06/2017 CLINICAL HISTORY: 84-year-old male N18.3 CKD. TECHNIQUE: Multiple sonographic images of the kidneys and bladder are obtained. FINDINGS: Cabinet And Trim Installer notes: Difficult and limited exam due to overlying bowel gas EXAM MEASUREMENTS: Right Kidney: 9.2 X 5.2 X 4.9 cm Left Kidney: 9.1 x 4.5 x 5.3 cm Right Kidney: No hydronephrosis. Upper pole cyst measuring 2.3 x 2.2 x 2.5 cm Left Kidney: No hydronephrosis. Thin and echogenic cortex bilaterally. Bladder: wnl Bilateral Jets seen: No IMPRESSION: Changes of chronic medical renal disease. No hydronephrosis. Benign 2.5 cm right renal cyst.
== END | disposition home or self-care (01) ==
LOC: RADUSWWP 14:39
PROVIDERS: ATTEND Internal Medicine Nephrology
DX: N18.4 Chronic kidney disease, stage 4 (severe) (principal); N28.1 Cyst of kidney, acquired
CPT/HCPCS: 76770

== ENCOUNTER → 2020-03-24 | Outpatient (CLI) | payer MEDICARE ==
--- NOTE | 2020-03-24 15:16 | XR ---
EXAMINATION TYPE: XR tibia fibula 2 views RT, XR ankle complete 3 views RT DATE OF EXAM: 03/24/2020 COMPARISON: None HISTORY: 84-year-old male injury and pain FINDINGS: Tibia/fibula: Anterolateral plate and screw fixation across the distal third right tibia. Some chronic appearing sm ooth periosteal bone formation at this site likely healed callus. Old healed fracture deformity of th e fibular shaft at the same level. No acute fracture is seen. Ankle: Small posterior and plantar calcaneal spurs. Mild degenerative spurring at the ankle joint. Some bima lleolar soft tissue swelling is noted. Ankle mortise is congruent with preservation of the distal tib iofibular overlap. Talar dome is intact. IMPRESSION: Tibia/fibula and ankle without acute osseous abnormality seen. Retained plate and screw fixation acro ss the anterolateral distal third tibial shaft and old healed fracture deformities at this level.
== END | disposition home or self-care (01) ==
LOC: LABWHC1 14:42
PROVIDERS: ATTEND Internal Medicine
DX: T14.90XA Injury, unspecified, initial encounter (principal); R52 Pain, unspecified

== ENCOUNTER → 2020-09-07 | Outpatient (CLI) | payer MEDICARE ==
[2020-09-07 11:24] LABS: Appearance,Urine Clear (Clear); Bilirubin,Urine Negative (Negative); Blood,Urine Negative (Negative); Color,Urine Yellow; Glucose,Urine (UA) Negative (Negative); Ketones,Urine Negative (Negative); Leukocyte Esterase,Urine Negative (Negative); Nitrite,Urine Negative (Negative); PH, Urine 5.5 (5.0-8.0); Protein,Urine Negative (Negative); Specific Gravity,Urine 1.013 (1.001-1.035); Urobilinogen,Urine <2.0 mg/dL (<2.0)
[2020-09-07 11:54] LABS: Creatinine,Urine Random 133.9 mg/dL; Protein/Creatinine Ratio,Urine 0.067
[2020-09-07 11:58] LABS: Anisocytosis Slight; Basophils % (A) 0 %; Eosinophils # (A) 0.3 k/uL (0-0.7); Eosinophils % (A) 5 %; HCT 33.6 % (39.0-53.0); HGB 10.1 gm/dL (13.0-17.5); Hypochromasia Slight; Lymphocytes # (A) 1.8 k/uL (1.0-4.8); Lymphocytes % (A) 28 %; MCH 23.3 pg (25.0-35.0); MCV 77.7 fL (80.0-100.0); Mean Platelet Volume 7.1; Microcytosis Slight; Monocytes # (A) 0.3 k/uL (0-1.0); Monocytes % (A) 5 %; Neutrophils # (A) 3.8 k/uL (1.3-7.7); Neutrophils % (A) 60 %; Platelet Count 135 k/uL (150-450); RBC 4.32 m/uL (4.30-5.90); WBC 6.3 k/uL (3.8-10.6)
[2020-09-07 20:54] LABS: African American GFR (CKD) 16.9 (60.0-200.0); Albumin 3.8 g/dL (3.80-4.90); Anion Gap 8.5 mmol/L (4.00-12.00); BUN/Creat Ratio 16.11 Ratio (12.00-20.00); Calcium 8.5 mg/dL (8.7-10.3); Carbon Dioxide 28.5 mmol/L (21.6-31.8); Magnesium 1.8 mg/dL (1.5-2.4); Non-African American GFR(CKD) 14.6 (60.0-200.0); Phosphorus 4.4 mg/dL (2.4-5.1); Potassium 4.4 mmol/L (3.5-5.5); Uric Acid 5.2 mg/dL (3.7-8.7)
== END | disposition home or self-care (01) ==
LOC: LABWHC1 10:16
PROVIDERS: ATTEND Internal Medicine Nephrology
DX: N25.81 Secondary hyperparathyroidism of renal origin (principal); E55.9 Vitamin D deficiency, unspecified; N18.4 Chronic kidney disease, stage 4 (severe); M10.9 Gout, unspecified; N39.0 Urinary tract infection, site not specified; D63.1 Anemia in chronic kidney disease; R80.9 Proteinuria, unspecified
CPT/HCPCS: 36415; 80048; 81003; 82040; 82306; 82570; 82728; 83540; 83550; 83735; 83970; 84100; 84156; 84550; 85025

== ENCOUNTER → 2021-12-21 | Day surgery (SDC) | payer MEDICARE ==
[2021-12-20 10:16] VITALS: BMI 34.9
[~2021-12-21] MED LIST: LACTATED RINGERS 1,000 ML IV SCH; LIDOCAINE 1% INJ 10MG/ML (20 ML MDV) ONE; PROPOFOL 10 MG/ML 20 ML VIAL IV ONE
[2021-12-21 11:11] VITALS: TEMP 98.3
--- NOTE | 2021-12-21 12:39 | P.PCN ---
Date of Procedure: 12/21/21 Procedure(s) Performed: BRIEF HISTORY: Patient is a 86-year-old [facility] scheduled for an elective colonoscopy as a part of of evaluation of chronic diarrhea for the last 6 months duration. His been having 6-8 loose watery bowel movements daily. He denies any blood or mucus in the stool. Last colonoscopy was 10 years ago. PROCEDURE PERFORMED: Colonoscopy random biopsies and snare polypectomy . PREOPERATIVE DIAGNOSIS: chronic Diarrhea of 6 months duration IV sedation per Anesthesia. PROCEDURE: After informed consent was obtained, the patient, was brought into the endoscopy unit. IV sedation was administered by Anesthesia under continuous monitoring. Digital rectal examination was normal. Initially the Olympus CF-160 flexible video colonoscope was then inserted in the rectum, gradually advanced into the cecum without any difficulty. Careful examination was performed as the scope was gradually being withdrawn. Ileocecal valve and the appendiceal orifice were visualized and appeared normal. Prep was excellent. Mucosa of the cecum, ascending colon, transverse colon, descending colon, normal. Scattered sigmoid diverticulosis seen. In the proximal sigmoid colon at 30 cm from the anal verge there was a 1 cm polyp by snare polypectomy. There was mild patchy areas of erythema noted in the distal sigmoid colon extending from 20-25 cm from the anal verge which was biopsied. The rectum appeared normal. Retroflexion was performed in the rectum asmall hemorrhoids were seen. The patient tolerated the procedure well. IMPRESSION: 1 cm sigmoid: Polyp status post polypectomy Scattered sigmoid diverticulosis Mild patchy areas of erythema noted in the distal sigmoid colon extending from 20-25 cm from the anal verge status post biopsy RECOMMENDATIONS: Findings of this examination were discussed with the patient as well as his family. He was advised to follow with the biopsy results. He will continue with diet recommended 10 mg 4 times daily and he will be seen in office in 2 weeks.
[2021-12-21 12:43] VITALS: PULSE 80
[2021-12-21 13:05] VITALS: BP 162/82; RESP 16
== END ==
LOC: ORWHC2ENDO 10:34
PROVIDERS: ATTEND Internal Medicine Gastroenterology
DX: D12.5 Benign neoplasm of sigmoid colon (principal); K52.9 Noninfective gastroenteritis and colitis, unspecified; K57.30 Diverticulosis of large intestine without perforation or abscess without bleeding; I25.10 Atherosclerotic heart disease of native coronary artery without angina pectoris; I48.91 Unspecified atrial fibrillation; I10 Essential (primary) hypertension; E78.5 Hyperlipidemia, unspecified; G47.33 Obstructive sleep apnea (adult) (pediatric); J44.9 Chronic obstructive pulmonary disease, unspecified; E07.9 Disorder of thyroid, unspecified; Z95.5 Presence of coronary angioplasty implant and graft; Z79.01 Long term (current) use of anticoagulants; Z79.899 Other long term (current) drug therapy; Z79.890 Hormone replacement therapy; Z79.82 Long term (current) use of aspirin
CPT/HCPCS: 88305; 45380; 45385; J2001; J2704

== ENCOUNTER 2022-07-30 15:53 | Emergency (ER) | payer MEDICARE ==
--- NOTE | 2022-07-30 17:17 | ED ---
URI HPI - General Chief Complaint: Upper Respiratory Infection Stated Complaint: pcp sent, test for covid Time Seen by Provider: 07/30/22 17:03 Source: patient Mode of arrival: wheelchair Limitations: no limitations - History of Present Illness Initial Comments: Patient is an 86-year-old male presenting with chief complaint of URI-like symptoms. Patient has been experiencing cough, congestion, chills, loss of taste, sore throat, headache for the past 4 days. Patient wants to be tested for Covid. Patient has been using his nebulizer at home, which helps with his cough and congestion. No abdominal pain, nausea, vomiting. No chest pain, difficulty breathing, palpitations, weakness. No dysuria, hematuria, flank pain. No fever. - Related Data Home Medications Medication Instructions Recorded Confirmed Furosemide [Lasix] 40 mg PO DAILY 08/11/17 07/03/22 Levothyroxine Sodium [Synthroid] 25 mcg PO DAILY 08/11/17 07/03/22 Montelukast [Singulair] 10 mg PO HS 08/11/17 07/03/22 allopurinoL [Zyloprim] 100 mg PO DAILY 08/11/17 07/03/22 Apixaban [Eliquis] 2.5 mg PO BID 01/30/18 07/03/22 Pantoprazole [Protonix] 40 mg PO DAILY 10/20/19 07/03/22 Metoprolol Succinate [Toprol XL] 25 mg PO DAILY 03/22/20 07/03/22 Cetirizine HCl 10 mg PO DAILY 09/06/20 07/03/22 Tamsulosin [Flomax] 0.4 mg PO DAILY 09/06/20 07/03/22 amLODIPine [Norvasc] 5 mg PO DAILY 09/06/20 07/03/22 calcitrioL [Rocaltrol] 0.5 mcg PO WEEKLY 09/06/20 07/03/22 hydrALAZINE HCL 25 mg PO BID 09/06/20 07/03/22 Atorvastatin [Lipitor] 60 mg PO HS 12/20/21 07/03/22 Dicyclomine [Bentyl] 20 mg PO TID 12/20/21 07/03/22 Procrit Injection 1 dose INJ Q30D 12/20/21 07/03/22 Previous Rx's Medication Instructions Recorded Aspirin 81 mg PO DAILY chew 02/04/18 HYDROcodone/APAP 10-325MG [[place] 1 each PO Q8H PRN tab 02/04/18 10-325] Allergies Allergy/AdvReac Type Severity Reaction Status Date / Time Penicillins Allergy Itching Verified 07/03/22 09:16 Tetanus Vaccines and Toxoid AdvReac Swelling Verified 07/03/22 09:16 Review of Systems ROS Statement: Those systems with pertinent positive or pertinent negative responses have been documented in the HPI. ROS Other: All systems not noted in ROS Statement are negative. Past Medical History Past Medical History: Atrial Fibrillation, Heart Failure, COPD, Eye Disorder, GERD/Reflux, Hypertension, Osteoarthritis (OA), Prostate Disorder, Sleep Apnea/CPAP/BIPAP, Thyroid Disorder Additional Past Medical History / Comment(s): uses oxygen 2l @[facility], gout, anemia, kidney disease History of Any Multi-Drug Resistant Organisms: None Reported Past Surgical History: Joint Replacement, Orthopedic Surgery Additional Past Surgical History / Comment(s): left knee replaced, cataract surg., ORIF both legs Past Anesthesia/Blood Transfusion Reactions: No Reported Reaction Past Psychological History: No Psychological Hx Reported Smoking Status: Former smoker - Past Family History Brother(s) Family Medical History: Cancer General Exam Limitations: no limitations General appearance: alert, in no apparent distress Head exam: Present: atraumatic, normocephalic, normal inspection Eye exam: Present: normal appearance, PERRL, EOMI. Absent: scleral icterus, conjunctival injection, periorbital swelling ENT exam: Present: normal exam, normal oropharynx, mucous membranes moist, TM's normal bilaterally Neck exam: Present: normal inspection, full ROM. Absent: lymphadenopathy Respiratory exam: Present: normal lung sounds bilaterally. Absent: respiratory distress, wheezes, rales, rhonchi, stridor Cardiovascular Exam: Present: regular rate, normal rhythm, normal heart sounds. Absent: systolic murmur, diastolic murmur, rubs, gallop, clicks Neurological exam: Present: alert, oriented X3, CN II-XII intact Psychiatric exam: Present: normal affect, normal mood Skin exam: Present: warm, dry, intact, normal color. Absent: rash Course Vital Signs 07/30/22 07/30/22 07/30/22 16:47 16:50 19:00 Temperature 98.7 F 97.8 F 97.8 F Pulse Rate 98 88 82 Respiratory 16 18 16 Rate Blood Pressure 115/55 122/78 132/78 O2 Sat by Pulse 95 98 96 Oximetry Medical Decision Making - Medical Decision Making Patient is an 86-year-old male presenting with chief complaint of cough, congestion, fatigue, and loss of taste. Symptoms have been ongoing for 4 days. On physical examination heart and lungs are clear to auscultation, normal HEENT exam. Differential includes Covid, influenza, or viral URI. Patient is negative for coronavirus influenza A and B. Chest x-ray shows no acute cardiopulmonary disease/process, interpreted by myself. Likely viral URI. I educated the patient and his on these findings and supportive treatment at home. Continue with at home breathing treatments. Follow-up with PCP. Report back to ER with any new or worsening symptoms. Discussed return parameters and answered all questions. Patient conveyed verbal understanding and agreed to the plan. I discussed this case in detail with my attending Dr. Mercer - Lab Data Lab Results 07/30/22 07/30/22 Range/Units 17:07 17:35 Coronavirus (PCR) Not Detected (Not Detectd) Influenza Type A RNA Not Detected (Not Detectd) Influenza Type B (PCR) Not Detected (Not Detectd) Disposition Clinical Impression: Upper respiratory tract infection Disposition: HOME SELF-CARE Condition: Good Instructions (If sedation given, give patient instructions): Upper Respiratory Infection (ED) Additional Instructions: Follow-up with PCP. Report back to ER with any new or worsening symptoms. Take Mucinex [id number] as needed. Continue taking breathing treatments as needed. Is patient prescribed a controlled substance at d/c from ED?: No Referrals: Abhilash Michel MD [Primary Care Provider] - 1-2 days Time of Disposition: 18:47
--- NOTE | 2022-07-30 18:07 | XR ---
EXAMINATION TYPE: XR chest 2V DATE OF EXAM: 07/30/2022 5:43 PM COMPARISON: Chest radiographs from 01/02/2018, CT 04/20/2019. TECHNIQUE: XR chest 2V Frontal and lateral views of the chest. CLINICAL INDICATION:Male, 86 years old with history of cough; FINDINGS: Lungs/Pleura: Persistent masslike opacity on the right hilum dating back to at least 2010. Now measur ing up to 4.2 cm consistent with prior CT of the dilated right pulmonary artery. There is no evidence of pleural effusion, focal consolidation, or pneumothorax. Pulmonary vascularity: Unremarkable. Heart/mediastinum: Cardiomediastinal silhouette is unremarkable. Musculoskeletal: No acute osseous pathology. Retained metallic density projects over the spine on lat eral view. IMPRESSION: 1. No acute cardiopulmonary disease/process. 2. Dilated right pulmonary artery as seen on prior CTs and chest radiograph.
[2022-07-30 18:52] VITALS: TEMP 97.8
[2022-07-30 19:09] VITALS: BP 132/78; PULSE 82; RESP 16
== END 2022-07-30 19:00 | disposition home or self-care (01) ==
LOC: EC 15:53
DX: J06.9 Acute upper respiratory infection, unspecified (principal); I48.91 Unspecified atrial fibrillation; J44.9 Chronic obstructive pulmonary disease, unspecified; I11.0 Hypertensive heart disease with heart failure; I50.9 Heart failure, unspecified; K21.9 Gastro-esophageal reflux disease without esophagitis; M19.90 Unspecified osteoarthritis, unspecified site; E07.9 Disorder of thyroid, unspecified; Z88.0 Allergy status to penicillin; Z88.7 Allergy status to serum and vaccine; Z79.899 Other long term (current) drug therapy; Z79.01 Long term (current) use of anticoagulants; Z79.890 Hormone replacement therapy; Z20.822 Contact with and (suspected) exposure to COVID-19; Z87.891 Personal history of nicotine dependence
CPT/HCPCS: 71046; 87502; 87635; 99283

== ENCOUNTER → 2024-04-07 | Outpatient (CLI) | payer MEDICARE | END | disposition home or self-care (01) | LOC: LABPRL 16:00 | PROVIDERS: ATTEND Internal Medicine Nephrology | DX: I10 Essential (primary) hypertension (principal); E78.2 Mixed hyperlipidemia | CPT/HCPCS: 80053; 80061; 85027 ==

== ENCOUNTER 2025-02-19 12:54 | Inpatient (IN) | payer MEDICARE ==
--- NOTE | 2025-02-19 13:30 | ED ---
General Adult HPI - General Chief complaint: Shortness of Breath Stated complaint: SOB Time Seen by Provider: 02/19/25 13:07 Source: patient, RN notes reviewed, old records reviewed Mode of arrival: ambulatory Limitations: no limitations - History of Present Illness Initial comments: 89-year-old male presenting with dyspnea, lower extremity swelling. History of CHF, chronic kidney disease. Patient is scheduled for evaluation for peritoneal dialysis port but has not received this as of today. He has had increased dyspnea with pink sputum production. Patient denies central chest pain. Denies fever. - Related Data Home Medications Medication Instructions Recorded Confirmed Furosemide [Lasix] 40 mg PO DAILY 08/11/17 02/09/25 Levothyroxine Sodium [Synthroid] 25 mcg PO DAILY 08/11/17 02/09/25 Montelukast [Singulair] 10 mg PO HS 08/11/17 02/09/25 Apixaban [Eliquis] 2.5 mg PO BID 01/30/18 02/09/25 Pantoprazole [Protonix] 40 mg PO HS 10/20/19 02/09/25 Cetirizine HCl 10 mg PO DAILY 09/06/20 02/09/25 Tamsulosin [Flomax] 0.4 mg PO DAILY 09/06/20 02/09/25 amLODIPine [Norvasc] 5 mg PO DAILY 09/06/20 02/09/25 calcitrioL [Rocaltrol] 0.5 mcg PO Q2D 09/06/20 02/09/25 Atorvastatin [Lipitor] 80 mg PO HS 12/20/21 02/09/25 Darbepoetin Todd [Aranesp] 40 mcg SQ Q14D 01/18/25 02/09/25 Diphenox-Atrop 2.5-0.025 mg 1 tab PO BID 01/18/25 02/09/25 [Lomotil] Ferrous Sulfate [Iron (65 MG 325 mg PO DAILY 01/18/25 02/09/25 Elemental)] Finasteride [Proscar] 5 mg PO DAILY 01/18/25 02/09/25 HYDROcodone/APAP 10-325MG [[place] 1 tab PO Q6H PRN 01/18/25 02/09/25 10-325] Metoprolol Succinate (ER) [Toprol 25 mg PO DAILY 01/18/25 02/09/25 XL] Vitamin B Complex W/Vitamin C 1 tab PO HS 01/18/25 02/09/25 Vitamin D3(Unknown Dose) 1 cap PO HS 01/18/25 02/09/25 allopurinoL 100 mg PO DAILY 01/18/25 02/09/25 hydrALAZINE HCL [Apresoline] 25 mg PO DAILY 01/18/25 02/09/25 Sodium Bicarbonate 2 tab PO TID 01/26/25 02/09/25 Sodium Zirconium Cyclosilicate 1 tab PO DAILY 01/26/25 02/09/25 [Lokelma] Previous Rx's Medication Instructions Recorded Aspirin 81 mg PO DAILY chew 02/04/18 Sodium Bicarbonate Tab 650 mg PO BID 30 Days #60 tab 01/21/25 Sodium Zirconium Cyclosilicate 10 gm PO BID 30 Days #60 packet 01/21/25 [Lokelma] Allergies Allergy/AdvReac Type Severity Reaction Status Date / Time Penicillins Allergy Itching Verified 02/19/25 13:05 Tetanus Vaccines and Toxoid AdvReac Swelling Verified 02/19/25 13:05 Review of Systems ROS Statement: Those systems with pertinent positive or pertinent negative responses have been documented in the HPI. ROS Other: All systems not noted in ROS Statement are negative. Past Medical History Past Medical History: Atrial Fibrillation, Heart Failure, COPD, Eye Disorder, GERD/Reflux, Hearing Disorder / Deafness, Hypertension, Osteoarthritis (OA), Pneumonia, Prostate Disorder, Renal Disease, Sleep Apnea/CPAP/BIPAP, Thyroid Disorder Additional Past Medical History / Comment(s): uses oxygen 2 L 24 hours a day, gout, anemia, kidney disease History of Any Multi-Drug Resistant Organisms: None Reported Past Surgical History: Heart Catheterization With Stent, Joint Replacement, Orthopedic Surgery Additional Past Surgical History / Comment(s): left knee replaced, cataract surg., ORIF both legs. Heart cath w/stent per pt's EMR-01/2018. Past Anesthesia/Blood Transfusion Reactions: No Reported Reaction Date of Last Stent Placement:: 01/30/2018 Past Psychological History: No Psychological Hx Reported Smoking Status: Former smoker Past Alcohol Use History: None Reported Past Drug Use History: None Reported - Past Family History Brother(s) Family Medical History: Cancer General Exam Limitations: no limitations General appearance: alert, in distress Head exam: Present: atraumatic, normocephalic Eye exam: Present: normal appearance, PERRL ENT exam: Present: normal exam Neck exam: Present: normal inspection. Absent: tenderness, meningismus Respiratory exam: Present: respiratory distress, rales, decreased breath sounds Cardiovascular Exam: Present: regular rate, irregular rhythm, systolic murmur GI/Abdominal exam: Present: soft. Absent: distended, tenderness, guarding Extremities exam: Present: pedal edema Neurological exam: Present: alert, oriented X3, CN II-XII intact. Absent: motor sensory deficit Psychiatric exam: Present: normal affect, normal mood Skin exam: Present: warm, dry, intact Course Vital Signs 02/19/25 02/19/25 13:02 14:25 Temperature 97.9 F Pulse Rate 99 Respiratory 26 H Rate Blood Pressure 153/71 O2 Sat by Pulse 78 L Oximetry Fraction of 80 Inspired Oxygen (FIO2) Medical Decision Making - Medical Decision Making Was pt. sent in by a medical professional or institution (, PA, SHIFT SUPERVISOR, urgent care, hospital, or alf...) When possible be specific @ -No Did you speak to anyone other than the patient for history (EMS, parent, family, police, friend...)? What history was obtained from this source @ -No Did you review nursing and triage notes (agree or disagree)? Why? @ -I reviewed and agree with nursing and triage notes Were old charts reviewed (outside hosp., previous admission, EMS record, old EKG, old radiological studies, urgent care reports/EKG's, alf records)? Report findings @ -No old charts were reviewed Differential Dyspnea: Coronary syndrome, arrhythmia, tamponade, asthma, COPD, pulmonary embolism, pneumonia, pneumothorax, pulmonary effusion, anaphylaxis, diabetic ketoacidosis, flailed chest, pulmonary contusion, diaphragmatic rupture, anemia, neuromuscular, this is not meant to be an all-inclusive list. EKG interpreted by me (3pts min.). @Sinus rhythm rate of 88, IL interval 183, QRS duration 100, QTc [address] segment elevation. X-rays interpreted by me (1pt min.). @ -Chest x-ray showing pulmonary edema consistent with CHF CT interpreted by me (1pt min.). @ -None done U/S interpreted by me (1pt. min.). @ -None done What testing was considered but not performed or refused? (CT, X-rays, U/S, labs)? Why? @ -None What meds were considered but not given or refused? Why? @ -None Did you discuss the management of the patient with other professionals (professionals i.e. , PA, SHIFT SUPERVISOR, lab, RT, psych nurse, social services analyst, early childhood director, teacher, staff weapons officer, catalytic case operator)? Give summary @Dr. Michel will admit Was smoking cessation discussed for >3mins.? @ -No Was critical care preformed (if so, how long)? @ -Yes, 35 minutes Were there social determinants of health that impacted care today? How? (Homelessness, low income, unemployed, alcoholism, drug addiction, jimenez sportation, low edu. Level, literacy, decrease access to med. care, skilled nursing, rehab)? @ -No Was there de-escalation of care discussed even if they declined (Discuss DNR or withdrawal of care, Hospice)? DNR status @ -No What co-morbidities impacted this encounter? (DM, HTN, Smoking, COPD, CAD, Cancer, CVA, ARF, Chemo, Hep., AIDS, mental health diagnosis, sleep apnea, morbid obesity)? @ -Chronic kidney disease, CHF] Was patient admitted / discharged? Hospital course, mention meds given and route, prescriptions, significant lab abnormalities, going to OR and other pertinent info. @ -[89-year-old male history of chronic kidney disease, CHF presenting with increased dyspnea. Patient is tachypneic with bilateral rails and lower extremity edema. Patient x-ray confirming CHF. He has chronic anemia with hemoglobin 8.2. His kidney function is at baseline. Troponin is elevated 0.078 this level will be trended in the setting of CHF and chronic kidney disease. His BNP is elevated 12,600. Patient is placed on BiPAP while in the emergency department and admitted for CHF. Cardiology and nephrology placed on consult. Undiagnosed new problem with uncertain prognosis? @ -No Drug Therapy requiring intensive monitoring for toxicity (Heparin, Nitro, Insulin, Cardizem)? @ -No Were any procedures done? @ -No Diagnosis/symptom? @ -Yes, respiratory failure, CHF, chronic kidney disease Acute, or Chronic, or Acute on Chronic? @ -[Acute on chronic Uncomplicated (without systemic symptoms) or Complicated (systemic symptoms)? @ -Default Side effects of treatment? @ -No Exacerbation, Progression, or Severe Exacerbation? @ -No Poses a threat to life or bodily function? How? (Chest pain, [place], ME, pneumonia, PE, COPD, DKA, ARF, appy, cholecystitis, CVA, Diverticulitis, Homicidal, Suicidal, threat to staff... and all critical care pts) @ -Yes, respiratory failure hypoxia - Lab Data Result diagrams: 02/19/25 13:37 02/19/25 13:37 Lab Results 02/19/25 02/19/25 02/19/25 Range/Units 13:37 13:37 13:37 WBC 6.71 (4.50-10.00) 10*3/uL RBC 3.54 L (4.40-5.60) 10*6/uL Hgb 8.2 L (13.0-17.0) g/dL Hct 26.7 L (39.6-50.0) % MCV 75.4 L (80.0-97.0) fL MCH 23.2 L (27.0-32.0) pg MCHC 30.7 L (32.0-37.0) g/dL Plt Count 170 (140-440) 10*3/uL Immature Gran % (Auto) 0.3 % Neutrophils % 76.3 % Lymphocytes % 11.3 % Monocytes % 7.0 % Eosinophils % 4.5 % Basophils % 0.6 % Immature Gran # 0.02 (0.00-0.04) 10*3/uL Neutrophils # 5.12 (1.80-7.70) 10*3/uL Lymphocytes # 0.76 L (0.90-5.00) 10*3/uL Monocytes # 0.47 (0.20-1.00) 10*3/uL Eosinophils # 0.30 (0.04-0.35) 10*3/uL Basophils # 0.04 (0.00-0.10) 10*3/uL Immature Plt Fraction 0.9 L (1.1-6.1) % PT 11.2 (10.0-12.5) sec INR 1.0 (<1.2) APTT 26.3 (22.0-30.0) sec Sodium 143 (137-145) mmol/L Potassium 3.2 L (3.5-5.1) mmol/L Chloride 96 L (98-107) mmol/L Carbon Dioxide 39 H (22-30) mmol/L Anion Gap 8 mmol/L BUN 54 H (9-20) mg/dL Creatinine 3.90 H (0.66-1.25) mg/dL Est GFR (CKD-EPI)AfAm 15 (>60 ml/min/1.73 sqM) Est GFR (CKD-EPI)NonAf 13 (>60 ml/min/1.73 sqM) Glucose 97 (74-99) mg/dL Calcium 9.0 (8.4-10.2) mg/dL Magnesium 2.1 (1.6-2.3) mg/dL Total Bilirubin 0.8 (0.2-1.3) mg/dL AST 19 (17-59) U/L ALT 9 (4-49) U/L Alkaline Phosphatase 77 (38-126) U/L Troponin I (0.000-0.034) ng/mL NT-Pro-B Natriuret Pep 15858 pg/mL Total Protein 6.1 L (6.3-8.2) g/dL Albumin 3.3 L (3.5-5.0) g/dL 02/19/25 Range/Units 13:37 WBC (4.50-10.00) 10*3/uL RBC (4.40-5.60) 10*6/uL Hgb (13.0-17.0) g/dL Hct (39.6-50.0) % MCV (80.0-97.0) fL MCH (27.0-32.0) pg MCHC (32.0-37.0) g/dL Plt Count (140-440) 10*3/uL Immature Gran % (Auto) % Neutrophils % % Lymphocytes % % Monocytes % % Eosinophils % % Basophils % % Immature Gran # (0.00-0.04) 10*3/uL Neutrophils # (1.80-7.70) 10*3/uL Lymphocytes # (0.90-5.00) 10*3/uL Monocytes # (0.20-1.00) 10*3/uL Eosinophils # (0.04-0.35) 10*3/uL Basophils # (0.00-0.10) 10*3/uL Immature Plt Fraction (1.1-6.1) % PT (10.0-12.5) sec INR (<1.2) APTT (22.0-30.0) sec Sodium (137-145) mmol/L Potassium (3.5-5.1) mmol/L Chloride (98-107) mmol/L Carbon Dioxide (22-30) mmol/L Anion Gap mmol/L BUN (9-20) mg/dL Creatinine (0.66-1.25) mg/dL Est GFR (CKD-EPI)AfAm (>60 ml/min/1.73 sqM) Est GFR (CKD-EPI)NonAf (>60 ml/min/1.73 sqM) Glucose (74-99) mg/dL Calcium (8.4-10.2) mg/dL Magnesium (1.6-2.3) mg/dL Total Bilirubin (0.2-1.3) mg/dL AST (17-59) U/L ALT (4-49) U/L Alkaline Phosphatase (38-126) U/L Troponin I 0.075 H* (0.000-0.034) ng/mL NT-Pro-B Natriuret Pep pg/mL Total Protein (6.3-8.2) g/dL Albumin (3.5-5.0) g/dL Critical Care Time Critical Care Time: Yes Total Critical Care Time: 35 Disposition Clinical Impression: Congestive heart failure, Chronic kidney disease (CKD) Disposition: ADMITTED IP TO THIS [facility] Condition: Serious Is patient prescribed a controlled substance at d/c from ED?: No Referrals: Abhilash Michel MD [Primary Care Provider] - 1-2 days Time of Disposition: 14:33
[2025-02-19 13:49] LABS: Basophils # (A) 0.04 10*3/uL (0.00-0.10); Basophils % (A) 0.6 %; Eosinophils # (A) 0.30 10*3/uL (0.04-0.35); Eosinophils % (A) 4.5 %; HCT 26.7 % (39.6-50.0); HGB 8.2 g/dL (13.0-17.0); Immature Platelet Fraction 0.9 % (1.1-6.1); Lymphocytes # (A) 0.76 10*3/uL (0.90-5.00); Lymphocytes % (A) 11.3 %; MCH 23.2 pg (27.0-32.0); MCHC 30.7 g/dL (32.0-37.0); MCV 75.4 fL (80.0-97.0); Monocytes # (A) 0.47 10*3/uL (0.20-1.00); Monocytes % (A) 7.0 %; Neutrophils # (A) 5.12 10*3/uL (1.80-7.70); Neutrophils % (A) 76.3 %; Platelet Count 170 10*3/uL (140-440); RBC 3.54 10*6/uL (4.40-5.60); RDW 19.6 % (11.5-14.5); WBC 6.71 10*3/uL (4.50-10.00)
--- NOTE | 2025-02-19 13:53 | XR ---
EXAMINATION TYPE: XR chest 1V portable DATE OF EXAM: 02/19/2025 COMPARISON: 01/18/2025 CLINICAL INDICATION: Male, 89 years old with history of LINK; TECHNIQUE: Single frontal view of the chest is obtained. FINDINGS: There is diffuse interstitial density and scattered small airspace or alveolar opacity with small lef t pleural fusion and mild cardiomegaly. The findings suggest the presence of CHF. Correlation is radha mmended. There is no pneumothorax. The osseous structures are grossly intact. IMPRESSION: Acute bilateral cardiopulmonary process, most likely CHF. Clinical correlation is recommended [facility] Josh Rodarte, , 02/19/2025 1:51 PM
[2025-02-19 14:00] LABS: INR 1.0 (<1.2); Partial Thromboplastin Time 26.3 sec (22.0-30.0); Prothrombin Time 11.2 sec (10.0-12.5)
[2025-02-19 14:04] LABS: ALT 9 U/L (4-49); AST 19 U/L (17-59); African American GFR (CKD) 15 (>60 ml/min/1.73 sqM); Albumin 3.3 g/dL (3.5-5.0); Alkaline Phosphatase 77 U/L (38-126); Anion Gap 8 mmol/L; Blood Urea Nitrogen 54 mg/dL (9-20); Calcium 9.0 mg/dL (8.4-10.2); Carbon Dioxide 39 mmol/L (22-30); Chloride 96 mmol/L (98-107); Glucose 97 mg/dL (74-99); Magnesium 2.1 mg/dL (1.6-2.3); Non-African American GFR(CKD) 13 (>60 ml/min/1.73 sqM); Potassium 3.2 mmol/L (3.5-5.1); Sodium 143 mmol/L (137-145); Total Protein 6.1 g/dL (6.3-8.2)
[2025-02-19 14:10] LABS: NT-Pro-B-Type Natriuretic Pept 12600 pg/mL
[2025-02-19] MEDS ORDERED: NALOXONE 0.4 MG/ML 1 ML VIAL IV PRN (14:27)
[2025-02-19] MEDS ORDERED: ACETAMINOPHEN TAB 325 MG TAB PO PRN (14:27)
[2025-02-19] MEDS: FUROSEMIDE 10 MG/ML 4 ML VIAL IV STA (14:47)
[2025-02-19] MEDS: POTASSIUM CHLORIDE ER 20 MEQ TAB.ER PO STA (20:19)
[2025-02-20 06:41] LABS: African American GFR (CKD) 15 (>60 ml/min/1.73 sqM); Anion Gap 8 mmol/L; Blood Urea Nitrogen 55 mg/dL (9-20); Calcium 8.7 mg/dL (8.4-10.2); Chloride 96 mmol/L (98-107); Glucose 99 mg/dL (74-99); Magnesium 2.0 mg/dL (1.6-2.3); Non-African American GFR(CKD) 13 (>60 ml/min/1.73 sqM); Potassium 3.4 mmol/L (3.5-5.1); Sodium 144 mmol/L (137-145)
[2025-02-20 06:48] LABS: Carbon Dioxide 40 mmol/L (22-30)
--- NOTE | 2025-02-20 09:56 | P.HPIM ---
History of Present Illness H&P Date: 02/20/25 Jayce Feldman is a 89-year-old male patient who presented with complaints of increased shortness of breath. Patient has a past medical history of end-stage renal disease and recently has agreed to initiate peritoneal dialysis. Patient reports he has plans for appointment on Friday to receive peritoneal dialysis catheter. Patient also has past medical history of atrial fibrillation and CHF. Chest x-ray completed showing acute bilateral cardiopulmonary process most likely CHF. Lab work completed showing white blood cell 6.71, hemoglobin 8.2, creatinine 3.9, bun 54, potassium 3.2. Troponin 0.075, 0.086 and 0.097. BNP elevated at 12,600. Patient did receive IV Lasix in ER. At this time patient will be admitted cardiology and nephrology services have been consulted. 2D echo has been ordered Home meds resumed. Patient complaints of shortness of breath. Patient denies chest pain. Patient denies nausea vomiting or diarrhea. Patient denies any urinary burning or frequency. Current vital signs temp 97, heart rate 76, respiratory rate 22, blood pressure 153/73 with pulse ox of 95% on 4 L Review of Systems Please refer to HPI otherwise unremarkable Past Medical History Past Medical History: Atrial Fibrillation, Heart Failure, COPD, Eye Disorder, GERD/Reflux, Hearing Disorder / Deafness, Hypertension, Osteoarthritis (OA), Pneumonia, Prostate Disorder, Renal Disease, Sleep Apnea/CPAP/BIPAP, Thyroid Disorder Additional Past Medical History / Comment(s): uses oxygen 2 L 24 hours a day, gout, anemia, kidney disease History of Any Multi-Drug Resistant Organisms: None Reported Past Surgical History: Heart Catheterization With Stent, Joint Replacement, Orthopedic Surgery Additional Past Surgical History / Comment(s): left knee replaced, cataract surg., ORIF both legs. Heart cath w/stent per pt's EMR-01/2018. Past Anesthesia/Blood Transfusion Reactions: No Reported Reaction Date of Last Stent Placement:: 01/30/2018 Past Psychological History: No Psychological Hx Reported Smoking Status: Former smoker Past Alcohol Use History: None Reported Past Drug Use History: None Reported - Past Family History Brother(s) Family Medical History: Cancer Medications and Allergies Home Medications Medication Instructions Recorded Confirmed Type Furosemide [Lasix] 40 mg PO DAILY 08/11/17 02/19/25 History Levothyroxine Sodium [Synthroid] 25 mcg PO DAILY 08/11/17 02/19/25 History Montelukast [Singulair] 10 mg PO HS 08/11/17 02/19/25 History Apixaban [Eliquis] 2.5 mg PO BID 01/30/18 02/19/25 History Aspirin 81 mg PO DAILY chew 02/04/18 02/19/25 Rx Pantoprazole [Protonix] 40 mg PO HS 10/20/19 02/19/25 History Cetirizine HCl 10 mg PO DAILY 09/06/20 02/19/25 History Tamsulosin [Flomax] 0.4 mg PO DAILY 09/06/20 02/19/25 History amLODIPine [Norvasc] 5 mg PO DAILY 09/06/20 02/19/25 History calcitrioL [Rocaltrol] 0.5 mcg PO Q2D 09/06/20 02/19/25 History Atorvastatin [Lipitor] 80 mg PO HS 12/20/21 02/19/25 History Darbepoetin Todd [Aranesp] 40 mcg SQ Q14D 01/18/25 02/19/25 History Diphenox-Atrop 2.5-0.025 mg 1 tab PO BID 01/18/25 02/19/25 History [Lomotil] Ferrous Sulfate [Iron (65 MG 325 mg PO DAILY 01/18/25 02/19/25 History Elemental)] Finasteride [Proscar] 5 mg PO DAILY 01/18/25 02/19/25 History HYDROcodone/APAP 10-325MG [[place] 1 tab PO Q6H PRN 01/18/25 02/19/25 History 10-325] Metoprolol Succinate (ER) [Toprol 25 mg PO DAILY 01/18/25 02/19/25 History XL] Vitamin B Complex W/Vitamin C 1 tab PO HS 01/18/25 02/19/25 History Vitamin D3(Unknown Dose) 1 cap PO HS 01/18/25 02/19/25 History allopurinoL 100 mg PO DAILY 01/18/25 02/19/25 History hydrALAZINE HCL [Apresoline] 25 mg PO DAILY 01/18/25 02/19/25 History Sodium Bicarbonate Tab 650 mg PO BID 30 Days #60 tab 01/21/25 02/19/25 Rx Dicyclomine [Bentyl] 20 mg PO QID PRN 02/19/25 02/19/25 History polyethylene glycoL 3350 [Miralax] 17 gm PO DAILY PRN 02/19/25 02/19/25 History Allergies Allergy/AdvReac Type Severity Reaction Status Date / Time Penicillins Allergy Itching Verified 02/19/25 17:21 Tetanus Vaccines and Toxoid AdvReac Swelling Verified 02/19/25 17:21 Physical Exam Vitals: Vital Signs Temp Pulse Pulse Resp BP BP Pulse Ox 02/20/25 08:00 97 F L 76 22 153/73 95 02/20/25 06:00 68 18 178/77 98 02/20/25 04:00 75 18 165/81 98 02/20/25 03:00 68 18 152/59 99 02/20/25 00:00 72 18 139/57 99 02/19/25 21:00 78 20 126/64 97 02/19/25 20:09 98 02/19/25 19:46 64 20 151/74 97 02/19/25 18:26 02/19/25 18:23 97.8 F 73 20 162/70 99 02/19/25 14:49 65 18 158/79 98 02/19/25 14:25 02/19/25 13:15 24 02/19/25 13:02 97.9 F 99 26 H 153/71 78 L FiO2 02/20/25 08:00 02/20/25 06:00 02/20/25 04:00 02/20/25 03:00 02/20/25 00:00 02/19/25 21:00 02/19/25 20:09 02/19/25 19:46 02/19/25 18:26 40 02/19/25 18:23 02/19/25 14:49 02/19/25 14:25 80 02/19/25 13:15 02/19/25 13:02 Head normocephalic Neck supple Lungs clear to auscultation bilaterally no wheezing or crackles Heart known atrial fibrillation Abdomen is soft nontender nondistended positive bowel sounds no hepatosplenomegaly Extremities no edema Neuro alert and orientated to 3 Results CBC & Chem 7: 02/19/25 13:37 02/20/25 05:34 Labs: Abnormal Lab Results - Last 24 Hours (Table) 02/19/25 02/19/25 02/19/25 Range/Units 13:37 13:37 13:37 RBC 3.54 L (4.40-5.60) 10*6/uL Hgb 8.2 L (13.0-17.0) g/dL Hct 26.7 L (39.6-50.0) % MCV 75.4 L (80.0-97.0) fL MCH 23.2 L (27.0-32.0) pg MCHC 30.7 L (32.0-37.0) g/dL Lymphocytes # 0.76 L (0.90-5.00) 10*3/uL Immature Plt Fraction 0.9 L (1.1-6.1) % Potassium 3.2 L (3.5-5.1) mmol/L Chloride 96 L (98-107) mmol/L Carbon Dioxide 39 H (22-30) mmol/L BUN 54 H (9-20) mg/dL Creatinine 3.90 H (0.66-1.25) mg/dL Troponin I 0.075 H* (0.000-0.034) ng/mL Total Protein 6.1 L (6.3-8.2) g/dL Albumin 3.3 L (3.5-5.0) g/dL 02/19/25 02/19/25 02/20/25 Range/Units 15:51 20:50 05:34 RBC (4.40-5.60) 10*6/uL Hgb (13.0-17.0) g/dL Hct (39.6-50.0) % MCV (80.0-97.0) fL MCH (27.0-32.0) pg MCHC (32.0-37.0) g/dL Lymphocytes # (0.90-5.00) 10*3/uL Immature Plt Fraction (1.1-6.1) % Potassium 3.4 L (3.5-5.1) mmol/L Chloride 96 L (98-107) mmol/L Carbon Dioxide 40 H (22-30) mmol/L BUN 55 H (9-20) mg/dL Creatinine 3.81 H (0.66-1.25) mg/dL Troponin I 0.086 H* 0.097 H* (0.000-0.034) ng/mL Total Protein (6.3-8.2) g/dL Albumin (3.5-5.0) g/dL Assessment and Plan Assessment: Shortness of breath secondary to acute CHF exacerbation End-stage renal disease. Patient is now agreeable to peritoneal dialysis schedule peritoneal dialysis catheter placement for this Friday Elevated troponins Acute on chronic CHF exacerbation History of essential hypertension History of anemia of chronic kidney disease History of atrial fibrillation maintained on Eliquis History of BPH History of gout History of hypothyroidism DVT prophylaxis Eliquis. GI prophylax Protonix Cardiology and nephrology services consulted 2D echo ordered Repeat labs ordered Time with Patient: Greater than 30 (Greater than 60% of the total time spent in counseling and coordination of care)
--- NOTE | 2025-02-20 11:31 | P.NPCON ---
History of Present Illness - Reason for Consult chronic renal failure - History of Present Illness Reason for consultation: Chronic kidney disease History of present illness: Patient is 89-year-old male seen in renal consultation for chronic kidney disease. 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 GFR is at baseline. Patient came to the hospital due to shortness of breath. Patient states his home visiting nurse advised him to go to the hospital. He does wear 2 L oxygen at home and is currently on 4 L. He has been voiding. Denies gross hematuria or dysuria. He denies history of diabetes. Oral intake is fair. Denies chest pain. He does admit to productive cough with brown to red phlegm. No evidence of hypotension. Denies use of nonsteroidals. Unsure if he had a fever or not. Vital signs are stable. General: No acute distress. HEENT: On nasal cannula. LUNGS: Diffuse wheezing. HEART: Rate and Rhythm are regular. ABDOMEN: Nontender. EXTREMITITES: 1+ edema. Past Medical History Past Medical History: Atrial Fibrillation, Heart Failure, COPD, Eye Disorder, GERD/Reflux, Hearing Disorder / Deafness, Hypertension, Osteoarthritis (OA), Pneumonia, Prostate Disorder, Renal Disease, Sleep Apnea/CPAP/BIPAP, Thyroid Disorder Additional Past Medical History / Comment(s): uses oxygen 2 L 24 hours a day, gout, anemia, kidney disease History of Any Multi-Drug Resistant Organisms: None Reported Past Surgical History: Heart Catheterization With Stent, Joint Replacement, Orthopedic Surgery Additional Past Surgical History / Comment(s): left knee replaced, cataract surg., ORIF both legs. Heart cath w/stent per pt's EMR-01/2018. Past Anesthesia/Blood Transfusion Reactions: No Reported Reaction Date of Last Stent Placement:: 01/30/2018 Past Psychological History: No Psychological Hx Reported Smoking Status: Former smoker Past Alcohol Use History: None Reported Past Drug Use History: None Reported - Past Family History Brother(s) Family Medical History: Cancer Medications and Allergies Home Medications Medication Instructions Recorded Confirmed Type Furosemide [Lasix] 40 mg PO DAILY 08/11/17 02/19/25 History Levothyroxine Sodium [Synthroid] 25 mcg PO DAILY 08/11/17 02/19/25 History Montelukast [Singulair] 10 mg PO HS 08/11/17 02/19/25 History Apixaban [Eliquis] 2.5 mg PO BID 01/30/18 02/19/25 History Aspirin 81 mg PO DAILY chew 02/04/18 02/19/25 Rx Pantoprazole [Protonix] 40 mg PO HS 10/20/19 02/19/25 History Cetirizine HCl 10 mg PO DAILY 09/06/20 02/19/25 History Tamsulosin [Flomax] 0.4 mg PO DAILY 09/06/20 02/19/25 History amLODIPine [Norvasc] 5 mg PO DAILY 09/06/20 02/19/25 History calcitrioL [Rocaltrol] 0.5 mcg PO Q2D 09/06/20 02/19/25 History Atorvastatin [Lipitor] 80 mg PO HS 12/20/21 02/19/25 History Darbepoetin Todd [Aranesp] 40 mcg SQ Q14D 01/18/25 02/19/25 History Diphenox-Atrop 2.5-0.025 mg 1 tab PO BID 01/18/25 02/19/25 History [Lomotil] Ferrous Sulfate [Iron (65 MG 325 mg PO DAILY 01/18/25 02/19/25 History Elemental)] Finasteride [Proscar] 5 mg PO DAILY 01/18/25 02/19/25 History HYDROcodone/APAP 10-325MG [Central 1 tab PO Q6H PRN 01/18/25 02/19/25 History 10-325] Metoprolol Succinate (ER) [Toprol 25 mg PO DAILY 01/18/25 02/19/25 History XL] Vitamin B Complex W/Vitamin C 1 tab PO HS 01/18/25 02/19/25 History Vitamin D3(Unknown Dose) 1 cap PO HS 01/18/25 02/19/25 History allopurinoL 100 mg PO DAILY 01/18/25 02/19/25 History hydrALAZINE HCL [Apresoline] 25 mg PO DAILY 01/18/25 02/19/25 History Sodium Bicarbonate Tab 650 mg PO BID 30 Days #60 tab 01/21/25 02/19/25 Rx Dicyclomine [Bentyl] 20 mg PO QID PRN 02/19/25 02/19/25 History polyethylene glycoL 3350 [Miralax] 17 gm PO DAILY PRN 02/19/25 02/19/25 History Allergies Allergy/AdvReac Type Severity Reaction Status Date / Time Penicillins Allergy Itching Verified 02/19/25 17:21 Tetanus Vaccines and Toxoid AdvReac Swelling Verified 02/19/25 17:21 Physical Exam Vitals: Vital Signs Temp Pulse Pulse Resp BP BP Pulse Ox 02/20/25 08:00 97 F L 76 22 153/73 95 02/20/25 06:00 68 18 178/77 98 02/20/25 04:00 75 18 165/81 98 02/20/25 03:00 68 18 152/59 99 02/20/25 00:00 72 18 139/57 99 02/19/25 21:00 78 20 126/64 97 02/19/25 20:09 98 02/19/25 19:46 64 20 151/74 97 02/19/25 18:26 02/19/25 18:23 97.8 F 73 20 162/70 99 02/19/25 14:49 65 18 158/79 98 02/19/25 14:25 02/19/25 13:15 24 02/19/25 13:02 97.9 F 99 26 H 153/71 78 L FiO2 02/20/25 08:00 02/20/25 06:00 02/20/25 04:00 02/20/25 03:00 02/20/25 00:00 02/19/25 21:00 02/19/25 20:09 02/19/25 19:46 02/19/25 18:26 40 02/19/25 18:23 02/19/25 14:49 02/19/25 14:25 80 02/19/25 13:15 02/19/25 13:02 Results - Lab Results Most recent lab results Calcium 8.7 mg/dL (8.4-10.2) 02/20/25 05:34 Magnesium 2.0 mg/dL (1.6-2.3) 02/20/25 05:34 02/19/25 13:37 02/20/25 05:34 Assessment and Plan Plan: Assessment: 1. 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 2. Acute hypoxic respiratory failure. 3. Volume overload. 4. Hypokalemia from diuresis. 5. Hypertension with chronic kidney disease. 6. Chronic kidney disease mineral bone disease. 7. Anemia of chronic kidney disease. Plan: Add IV Lasix 40 mg twice daily. Replace potassium. Avoid nephrotoxins. Stop bicarb. Check iron studies. Continue to monitor renal function and urine output. Patient interested in doing peritoneal dialysis outpatient. He has been referred for PD catheter evaluation and has an appointment coming up. Thank you for the consultation. I will continue to follow the patient with you during his hospital stay.
[2025-02-20] MEDS: LEVOTHYROXINE 25 MCG TAB PO SCH (12:09)
[2025-02-20] MEDS: METOPROLOL SUCCINATE (ER) 25 MG TAB.ER.24H PO SCH (12:09)
[2025-02-20] MEDS: FERROUS SULFATE 325 MG TAB PO SCH (12:09)
[2025-02-20] MEDS: FINASTERIDE 5 MG TAB PO SCH (12:09)
[2025-02-20] MEDS: amLODIPine 5 MG TAB PO SCH (12:10)
[2025-02-20] MEDS: POTASSIUM CHLORIDE ER 20 MEQ TAB.ER PO STA (12:10)
[2025-02-20] MEDS: FUROSEMIDE 10 MG/ML 4 ML VIAL IV SCH (12:11)
--- NOTE | 2025-02-20 13:07 | P.CRDCN ---
History of Present Illness Consult date: 02/20/25 History of present illness: HISTORY OF PRESENTING ILLNESS: 89-year-old. Known to Dr. Cordon. Prior history of paroxysmal atrial fibrillation, hypertension dyslipidemia, anemia of chronic disease hypertension and CKD stage V This time presents to the hospital because of increased worsening shortness of breath. On admission he was noticed to be fluid overloaded with signs of pulmonary congestion. He has been evaluated for possible peritoneal dialysis and is anticipated to get a peritoneal dialysis catheter while he is in the hospital this time. He has denied hemodialysis in the past. Cardiology is consulted for CHF evaluation. On admission he is in sinus rhythm with intermittent PVCs. Hemoglobin 8.2, BUN 54, creatinine 3.9, troponin 0.07, 0.08, 0.09, essentially flat NT-proBNP 12, 500 Chest x-ray shows bilateral pulmonary congestion BP 154/59, heart rate 68 REVIEW OF SYSTEMS: 14 point review of system is negative except what is mentioned above in HPI. PHYSICAL EXAMINATION: Neck: Brisk carotid upstroke, no jugular venous distention. Lungs: Clear to auscultation. Heart: Regular rate and rhythm, S1-S2, , no murmur or rub. Abdomen: Soft nontender, positive bowel sounds. Extremities: No edema, intact distal pulses. Neuro: Alert, oritented, no focal deficits. Detailed neuro exam was not performed. ASSESSMENT: # Fluid overload because of CKD # Elevated troponin, likely from poor renal clearance and fluid overload. Less likely ACS # Essential hypertension # Prior paroxysmal atrial fibrillation, currently sinus rhythm with PVCs PLAN: Obtain echocardiogram Continue IV Lasix as per nephrology recommendations He is on amlodipine Eliquis Lipitor and metoprolol succinate at home. Continue without any changes Bob Ward MD, FACC, RPVI Thank you for allowing [facility] to participate in this patient's care. Feel free to reach out in case of any followup questions. Past Medical History Past Medical History: Atrial Fibrillation, Heart Failure, COPD, Eye Disorder, GERD/Reflux, Hearing Disorder / Deafness, Hypertension, Osteoarthritis (OA), Pneumonia, Prostate Disorder, Renal Disease, Sleep Apnea/CPAP/BIPAP, Thyroid Disorder Additional Past Medical History / Comment(s): uses oxygen 2 L 24 hours a day, gout, anemia, kidney disease History of Any Multi-Drug Resistant Organisms: None Reported Past Surgical History: Heart Catheterization With Stent, Joint Replacement, Orthopedic Surgery Additional Past Surgical History / Comment(s): left knee replaced, cataract surg ., ORIF both legs. Heart cath w/stent per pt's EMR-01/2018. Past Anesthesia/Blood Transfusion Reactions: No Reported Reaction Date of Last Stent Placement:: 01/30/2018 Past Psychological History: No Psychological Hx Reported Smoking Status: Former smoker Past Alcohol Use History: None Reported Past Drug Use History: None Reported - Past Family History Brother(s) Family Medical History: Cancer Medications and Allergies Home Medications Medication Instructions Recorded Confirmed Type Furosemide [Lasix] 40 mg PO DAILY 08/11/17 02/19/25 History Levothyroxine Sodium [Synthroid] 25 mcg PO DAILY 08/11/17 02/19/25 History Montelukast [Singulair] 10 mg PO HS 08/11/17 02/19/25 History Apixaban [Eliquis] 2.5 mg PO BID 01/30/18 02/19/25 History Aspirin 81 mg PO DAILY chew 02/04/18 02/19/25 Rx Pantoprazole [Protonix] 40 mg PO HS 10/20/19 02/19/25 History Cetirizine HCl 10 mg PO DAILY 09/06/20 02/19/25 History Tamsulosin [Flomax] 0.4 mg PO DAILY 09/06/20 02/19/25 History amLODIPine [Norvasc] 5 mg PO DAILY 09/06/20 02/19/25 History calcitrioL [Rocaltrol] 0.5 mcg PO Q2D 09/06/20 02/19/25 History Atorvastatin [Lipitor] 80 mg PO HS 12/20/21 02/19/25 History Darbepoetin Todd [Aranesp] 40 mcg SQ Q14D 01/18/25 02/19/25 History Diphenox-Atrop 2.5-0.025 mg 1 tab PO BID 01/18/25 02/19/25 History [Lomotil] Ferrous Sulfate [Iron (65 MG 325 mg PO DAILY 01/18/25 02/19/25 History Elemental)] Finasteride [Proscar] 5 mg PO DAILY 01/18/25 02/19/25 History HYDROcodone/APAP 10-325MG [[place] 1 tab PO Q6H PRN 01/18/25 02/19/25 History 10-325] Metoprolol Succinate (ER) [Toprol 25 mg PO DAILY 01/18/25 02/19/25 History XL] Vitamin B Complex W/Vitamin C 1 tab PO HS 01/18/25 02/19/25 History Vitamin D3(Unknown Dose) 1 cap PO HS 01/18/25 02/19/25 History allopurinoL 100 mg PO DAILY 01/18/25 02/19/25 History hydrALAZINE HCL [Apresoline] 25 mg PO DAILY 01/18/25 02/19/25 History Sodium Bicarbonate Tab 650 mg PO BID 30 Days #60 tab 01/21/25 02/19/25 Rx Dicyclomine [Bentyl] 20 mg PO QID PRN 02/19/25 02/19/25 History polyethylene glycoL 3350 [Miralax] 17 gm PO DAILY PRN 02/19/25 02/19/25 History Allergies Allergy/AdvReac Type Severity Reaction Status Date / Time Penicillins Allergy Itching Verified 02/19/25 17:21 Tetanus Vaccines and Toxoid AdvReac Swelling Verified 02/19/25 17:21 Physical Exam Vitals: Vital Signs Temp Pulse Pulse Resp BP BP Pulse Ox 02/20/25 08:00 97 F L 76 22 153/73 95 02/20/25 06:00 68 18 178/77 98 02/20/25 04:00 75 18 165/81 98 02/20/25 03:00 68 18 152/59 99 02/20/25 00:00 72 18 139/57 99 02/19/25 21:00 78 20 126/64 97 02/19/25 20:09 98 02/19/25 19:46 64 20 151/74 97 02/19/25 18:26 02/19/25 18:23 97.8 F 73 20 162/70 99 02/19/25 14:49 65 18 158/79 98 02/19/25 14:25 02/19/25 13:15 24 FiO2 02/20/25 08:00 02/20/25 06:00 02/20/25 04:00 02/20/25 03:00 02/20/25 00:00 02/19/25 21:00 02/19/25 20:09 02/19/25 19:46 02/19/25 18:26 40 02/19/25 18:23 02/19/25 14:49 02/19/25 14:25 80 02/19/25 13:15 Results 02/19/25 13:37 02/20/25 05:34 Cardiac Enzymes 02/19/25 02/19/25 02/19/25 Range/Units 13:37 13:37 15:51 AST 19 (17-59) U/L Troponin I 0.075 H* 0.086 H* (0.000-0.034) ng/mL 02/19/25 Range/Units 20:50 AST (17-59) U/L Troponin I 0.097 H* (0.000-0.034) ng/mL Coagulation 02/19/25 Range/Units 13:37 PT 11.2 (10.0-12.5) sec APTT 26.3 (22.0-30.0) sec CBC 02/19/25 Range/Units 13:37 WBC 6.71 (4.50-10.00) 10*3/uL RBC 3.54 L (4.40-5.60) 10*6/uL Hgb 8.2 L (13.0-17.0) g/dL Hct 26.7 L (39.6-50.0) % Plt Count 170 (140-440) 10*3/uL Comprehensive Metabolic Panel 02/19/25 02/20/25 Range/Units 13:37 05:34 Sodium 143 144 (137-145) mmol/L Potassium 3.2 L 3.4 L (3.5-5.1) mmol/L Chloride 96 L 96 L (98-107) mmol/L Carbon Dioxide 39 H 40 H (22-30) mmol/L BUN 54 H 55 H (9-20) mg/dL Creatinine 3.90 H 3.81 H (0.66-1.25) mg/dL Glucose 97 99 (74-99) mg/dL Calcium 9.0 8.7 (8.4-10.2) mg/dL AST 19 (17-59) U/L ALT 9 (4-49) U/L Alkaline Phosphatase 77 (38-126) U/L Total Protein 6.1 L (6.3-8.2) g/dL Albumin 3.3 L (3.5-5.0) g/dL Current Medications Generic Name Dose Route Start Last Admin Trade Name Freq PRN Reason Stop Dose Admin Acetaminophen 650 mg 02/19/25 14:27 Acetaminophen Tab 325 Mg Tab PO Q6HR PRN Mild Pain or Fever > 100.5 Hydrocodone Bitart/Acetaminophen 1 each 02/20/25 09:09 Hydrocodone/Apap 10-325mg 1 Each Tab PO Q6H PRN Pain Allopurinol 100 mg 02/20/25 09:30 02/20/25 12:10 Allopurinol 100 Mg Tab PO 100 mg DAILY TJ Administration Amlodipine Besylate 5 mg 02/20/25 09:00 02/20/25 12:10 Amlodipine 5 Mg Tab PO 5 mg DAILY TJ Administration Apixaban 2.5 mg 02/20/25 21:00 Apixaban 2.5 Mg Tablet PO BID [facility] Protocol Atorvastatin Calcium 80 mg 02/20/25 21:00 Atorvastatin 80 Mg Tab PO HS TJ Calcitriol 0.5 mcg 02/20/25 09:00 Calcitriol 0.25 Mcg Cap PO Q2D TJ Dicyclomine HCl 20 mg 02/20/25 09:09 Dicyclomine 20 Mg Tab PO QID PRN GI Upset Diphenoxylate HCl/Atropine 1 each 02/20/25 21:00 Diphenox-Atrop 2.5-0.025 Mg 1 Each Tab PO BID [facility] Ferrous Sulfate 325 mg 02/20/25 09:00 02/20/25 12:09 Ferrous Sulfate 325 Mg Tab PO 325 mg DAILY TJ Administration Finasteride 5 mg 02/20/25 09:00 02/20/25 12:09 Finasteride 5 Mg Tab PO 5 mg DAILY TJ Administration Furosemide 40 mg 02/20/25 11:30 02/20/25 12:11 Furosemide 10 Mg/Ml 4 Ml Vial IV 40 mg Q12HR TJ Administration Hydralazine HCl 25 mg 02/20/25 09:15 02/20/25 12:10 Hydralazine Hcl 25 Mg Tab PO 25 mg DAILY TJ Administration Levothyroxine Sodium 25 mcg 02/20/25 09:30 02/20/25 12:09 Levothyroxine 25 Mcg Tab PO 25 mcg 0630 TJ Administration Loratadine 10 mg 02/21/25 09:00 Loratadine 10 Mg Tab PO DAILY [facility] Metoprolol Succinate 25 mg 02/20/25 09:15 02/20/25 12:09 Metoprolol Succinate (Er) 25 Mg Tab.Er.24h PO 25 mg DAILY TJ Administration Montelukast Sodium 10 mg 02/20/25 21:00 Montelukast 10 Mg Tab PO HS TJ Naloxone HCl 0.2 mg 02/19/25 14:27 Naloxone 0.4 Mg/Ml 1 Ml Vial IV Q2M PRN Opioid Reversal Pantoprazole Sodium 40 mg 02/20/25 21:00 Pantoprazole 40 Mg Tablet PO HS [facility] Polyethylene Glycol 17 gm 02/20/25 09:09 Polyethylene Glycol 3350 17 Gm Powd.Pack PO DAILY PRN Constipation Tamsulosin HCl 0.4 mg 02/21/25 09:00 Tamsulosin 0.4 Mg Cap.Er.24h PO DAILY TJ 02/19/25 13:37 02/20/25 05:34
[2025-02-20] MEDS: FUROSEMIDE 40 MG TAB PO SCH (14:39)
[2025-02-20 20:09] LABS: Glucose,Whole Blood 93 mg/dL (70-110)
[2025-02-20] MEDS: DIPHENOX-ATROP 2.5-0.025 MG 1 EACH TAB PO SCH (20:41)
[2025-02-20] MEDS: ATORVASTATIN 80 MG TAB PO SCH (20:53)
[2025-02-20] MEDS: PANTOPRAZOLE 40 MG TABLET PO SCH (20:53)
[2025-02-20] MEDS: MONTELUKAST 10 MG TAB PO SCH (20:53)
[2025-02-20] MEDS: APIXABAN 2.5 MG TABLET PO SCH (20:53)
[2025-02-20] MEDS ORDERED: SODIUM BICARBONATE TAB 650 MG TAB PO SCH (21:00)
[2025-02-20 23:55] LABS: Ferritin 451.0 ng/mL (22.0-322.0); Iron 34.0 UG/DL (65-175); Total Iron Binding Capacity 157.0 UG/DL (228-460)
[2025-02-21 04:58] LABS: Basophils # (A) 0.03 10*3/uL (0.00-0.10); Basophils % (A) 0.4 %; Eosinophils # (A) 0.43 10*3/uL (0.04-0.35); Eosinophils % (A) 6.2 %; HCT 25.6 % (39.6-50.0); HGB 7.7 g/dL (13.0-17.0); Immature Platelet Fraction 1.1 % (1.1-6.1); Lymphocytes # (A) 1.13 10*3/uL (0.90-5.00); Lymphocytes % (A) 16.3 %; MCH 23.1 pg (27.0-32.0); MCHC 30.1 g/dL (32.0-37.0); MCV 76.9 fL (80.0-97.0); Monocytes # (A) 0.55 10*3/uL (0.20-1.00); Monocytes % (A) 7.9 %; Neutrophils # (A) 4.77 10*3/uL (1.80-7.70); Neutrophils % (A) 69.1 %; Platelet Count 158 10*3/uL (140-440); RBC 3.33 10*6/uL (4.40-5.60); RDW 19.6 % (11.5-14.5); WBC 6.92 10*3/uL (4.50-10.00)
[2025-02-21 05:30] LABS: ALT 8 U/L (4-49); African American GFR (CKD) 16 (>60 ml/min/1.73 sqM); Albumin 2.9 g/dL (3.5-5.0); Blood Urea Nitrogen 52 mg/dL (9-20); Calcium 8.7 mg/dL (8.4-10.2); Glucose 99 mg/dL (74-99); Magnesium 2.0 mg/dL (1.6-2.3); Non-African American GFR(CKD) 14 (>60 ml/min/1.73 sqM); Sodium 142 mmol/L (137-145)
[2025-02-21 05:59] LABS: AST 23 U/L (17-59); Alkaline Phosphatase 77 U/L (38-126); Anion Gap 7 mmol/L; Carbon Dioxide 39 mmol/L (22-30); Chloride 96 mmol/L (98-107); Potassium 3.7 mmol/L (3.5-5.1); Total Protein 5.5 g/dL (6.3-8.2)
[2025-02-21] MEDS: LORATADINE 10 MG TAB PO SCH (08:13)
[2025-02-21] MEDS: TAMSULOSIN 0.4 MG CAP.ER.24H PO SCH (08:13)
--- NOTE | 2025-02-21 11:15 | CA ---
Transthoracic Echo Report Name: Jayce Feldman Age: 89 Gender: M : 1935 Exam Date: 02/21/2025 08:10 Exam Location: [facility] Ht (in): 67 Wt (lb): 200 Ordering Physician: Abhilash Michel MD Attending/Referring Phys: Financial Assistant Phyllis Garcia RDCS Procedure CPT: Indications: chf Cardiac Hx: CKD Technical Quality: Fair Contrast 1: Total Dose (mL): Contrast 2: Total Dose (mL): MEASUREMENTS (Male / Female) Normal Values 2D ECHO LV Diastolic Diameter PLAX 4.9 cm 4.2 - 5.9 / 3.9 - 5.3 cm LV Systolic Diameter PLAX 2.2 cm IVS Diastolic Thickness 1.7 cm 0.6 - 1.0 / 0.6 - 0.9 cm LVPW Diastolic Thickness 1.7 cm 0.6 - 1.0 / 0.6 - 0.9 cm LV Relative Wall Thickness 0.7 RV Internal Dim ED PLAX 2.5 cm LVOT Diameter 2.2 cm LA Systolic Diameter LX 4.5 cm 3.0 - 4.0 / 2.7 - 3.8 cm LV Diastolic Volume MOD BP 84.5 cm??? 67 - 155 / 56 - 104 cm??? LV Systolic Volume MOD BP 25.7 cm??? 22 - 58 / 19 - 49 cm??? LV Ejection Fraction MOD BP 69.6 % >= 55 % LV Cardiac Index MOD BP 2241.5 cm???/min???m??? LV Diastolic Volume MOD 4C 95.8 cm??? LV Systolic Volume MOD 4C 29.1 cm??? LV Ejection Fraction MOD 4C 69.6 % LV Cardiac Index MOD 4C 2542.1 cm???/min???m??? LV Diastolic Length 4C 8.8 cm LV Systolic Length 4C 7.1 cm LV Diastolic Volume MOD 2C 72.5 cm??? LV Systolic Volume MOD 2C 22.9 cm??? LV Ejection Fraction MOD 2C 68.5 % LV Cardiac Index MOD 2C 1891.9 cm???/min???m??? LV Diastolic Length 2C 8.4 cm LV Systolic Length 2C 6.9 cm LA Volume 156.8 cm??? 18 - 58 / 22 - 52 cm??? LA Volume Index 74.7 cm???/m??? 16 - 28 cm???/m??? M-MODE Aortic Root Diameter MM 3.8 cm LA Systolic Diameter MM 5.1 cm LA Ao Ratio MM 1.4 AV Cusp Separation MM 0.7 cm DOPPLER AV Peak Velocity 449.9 cm/s AV Peak Gradient 80.9 mmHg AV Mean Velocity 328.0 cm/s AV Mean Gradient 47.9 mmHg AV Velocity Time Integral 97.4 cm AI Peak Velocity 450.9 cm/s AI Peak Gradient 81.3 mmHg AI Pressure Half Time 333.7 ms LVOT Peak Velocity 141.3 cm/s LVOT Peak Gradient 8.0 mmHg LVOT Velocity Time Integral 32.3 cm LVOT Stroke Volume 126.7 cm??? LVOT Stroke Volume Index 62.7 ml/m??? LVOT Cardiac Index 4827.4 cm???/min???m??? AV Area Cont Eq vti 1.3 cm??? AV Area Cont Eq pk 1.2 cm??? MV Area PHT 3.0 cm??? Mitral E Point Velocity 66.4 cm/s Mitral A Point Velocity 84.9 cm/s Mitral E to A Ratio 0.8 MV Deceleration Time 249.9 ms TR Peak Velocity 377.3 cm/s TR Peak Gradient 56.9 mmHg Right Ventricular Systolic Press 73.3 mmHg FINDINGS Left Ventricle Left ventricular ejection fraction is estimated at 65-70 %. Severely increased septal wall thickness. Left ventricular cavity size normal. Hyperdynamic left ventricular systolic function. Right Ventricle Mild right ventricular dilatation. Severe pulmonary hypertension. Right Atrium Normal right atrial size. Left Atrium Mildly increased left atrial diameter. Severely increased left atrial volume. Moderately increased left atrial area. Mitral Valve Structurally normal mitral valve. Mild mitral regurgitation. No mitral stenosis. Aortic Valve Aortic valve not well visualized. Severe aortic stenosis with a peak velocity of 4.5 m/s, peak gradient 80 mmHg, mean gradient 48 mmHg. Moderate to severe aortic regurgitation. Tricuspid Valve Structurally normal tricuspid valve. Moderate tricuspid regurgitation. No tricuspid stenosis. Pulmonic Valve Structurally normal pulmonic valve. Trace pulmonic regurgitation. No pulmonic stenosis. Pericardium No pericardial or pleural effusion. Aorta Mild aortic dilatation at the level of the sinuses of valsalva (root). CONCLUSIONS LV size and systolic function is good. Aortic valve is not well-seen but severely stenosed. There is severe aortic stenosis probably moderate aortic regurgitation, no pericardial effusion. Moderate mitral insufficiency, Severe pulmonary hypertension Previewed by: Dr. Josiah Ferreira MD (Electronically Signed) Final Date: 21 February 2025 11:15
[2025-02-21] MEDS: FUROSEMIDE 100 MG in SODIUM CHLORIDE 0.9% 90 ML IV SCH (11:57)
[2025-02-21] MEDS: POTASSIUM CHLORIDE ER 20 MEQ TAB.ER PO STA (11:57)
[2025-02-21] MEDS: FUROSEMIDE 10 MG/ML 10 ML VIAL IV STA (11:57)
--- NOTE | 2025-02-21 12:29 | P.PN ---
Subjective Patient is seen for follow-up of chronic kidney disease stage V with renal function at baseline. He was admitted with shortness of breath and volume overload. Complaining of significant shortness of breath today even while talking. Urine output not accurately charted. Renal function at baseline Hemodynamically stable Oxygen at 2 L with O2 sats at 95% Complaining of chest pain/burning while eating Objective - Vital Signs Vital signs: Vital Signs Temp 97.8 F 02/21/25 12:00 Pulse 78 02/21/25 12:00 Resp 24 02/21/25 12:00 BP 150/78 02/21/25 12:00 Pulse Ox 95 02/21/25 12:00 FiO2 40 02/19/25 18:26 Intake & Output 02/20/25 02/21/25 02/21/25 18:59 06:59 18:59 Output Total 350 200 Balance -350 -200 Weight 90.718 kg 96.3 kg Output: Urine 350 200 Other: # Voids 2 # Bowel Movements 1 - Exam Patient is awake, comfortable Alert oriented x 3 Examination of the heart S1 and S2 Examination of the lungs bilateral breath sounds are heard Abdomen is soft, mild tenderness lower abdomen Examination of lower extremities shows edema 2+ and chronic skin changes TOOL CRIB LEAD exam grossly intact - Labs CBC & Chem 7: 02/21/25 04:43 02/21/25 04:43 Labs: Abnormal Lab Results - Last 24 Hours (Table) 02/20/25 02/21/25 02/21/25 Range/Units 05:34 04:43 04:43 RBC 3.33 L (4.40-5.60) 10*6/uL Hgb 7.7 L (13.0-17.0) g/dL Hct 25.6 L (39.6-50.0) % MCV 76.9 L (80.0-97.0) fL MCH 23.1 L (27.0-32.0) pg MCHC 30.1 L (32.0-37.0) g/dL MPV 8.8 L (9.5-12.2) fL Eosinophils # 0.43 H (0.04-0.35) 10*3/uL Chloride 96 L (98-107) mmol/L Carbon Dioxide 39 H (22-30) mmol/L BUN 52 H (9-20) mg/dL Creatinine 3.63 H (0.66-1.25) mg/dL Iron 34 L (65-175) UG/DL TIBC 157 L (228-460) UG/DL Transferrin 112.0 L (204.0-354.0) mg/dL Ferritin 451.0 H (22.0-322.0) ng/mL Total Protein 5.5 L (6.3-8.2) g/dL Albumin 2.9 L (3.5-5.0) g/dL Assessment and Plan Assessment: 1. 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 Renal function at baseline 2. Acute hypoxic respiratory failure secondary to CHF and volume overload 3. Volume overload. 4. Hypokalemia from diuresis. 5. Hypertension with chronic kidney disease. 6. Chronic kidney disease mineral bone disease. 7. Anemia of chronic kidney disease. Plan: Increase diuretics Discussed with patient regarding plans for PD catheter placement which can be done during his hospitalization as well. No urgent need for dialysis as long as patient has good urine output and volume status improves. Check chest x-ray Replace potassium Continue with calcitriol
--- NOTE | 2025-02-21 13:54 | P.PN ---
Subjective Progress Note Date: 02/21/25 The patient is an 89-year-old male who was admitted to the hospital with congestive heart failure. Cardiology has been consulted for further management. He was also noted to be in renal failure. Dialysis has been recommended in the past, however the patient has declined. Recent echocardiogram shows preserved LV function with severe aortic stenosis and aortic insufficiency, with elevated RVSP. Patient interviewed and examined resting comfortably in bed. Heart rate is currently irregular as he is currently in bigeminy. He denies any current pain or difficulty breathing. GENERAL: Well-appearing, well-nourished and in no acute distress. NECK: Supple without JVD or thyromegaly. LUNGS: Breath sounds clear to auscultation bilaterally. Respiration equal and unlabored. No wheezes, rales or rhonchi. HEART: Irregular rate and rhythm. Systolic ejection murmur. No rubs or gallops. S1 and S2 heard. EXTREMITIES: Normal range of motion, no edema. No clubbing or cyanosis. Peripheral pulses intact and strong. TELEMETRY: Episodes of bigeminy overnight LABS: WBC 6.92, hemoglobin 7.7, hematocrit 25.6, platelet 158, sodium 142, potassium 3.7, BUN 52, creatinine 3.63, magnesium 2.0 IMPRESSION: Congestive heart failure, diastolic Elevated troponin, secondary to fluid overload and chronic renal disease End-stage renal disease, starting peritoneal dialysis Paroxysmal atrial fibrillation, on anticoagulation Aortic valve disease, severe aortic stenosis and insufficiency Pulmonary hypertension, RVSP 73.3 mmHg PLAN: Increase hydralazine Consider switching metoprolol to carvedilol Continue diuresis per nephrology Further recommendations to be based upon clinical course I am dictating on behalf of Dr Hugo Guerra's history/physical and assessment/plan. Objective - Vital Signs Vital signs: Vital Signs Temp 97.8 F 02/21/25 12:00 Pulse 78 02/21/25 12:00 Resp 24 02/21/25 12:00 BP 150/78 02/21/25 12:00 Pulse Ox 95 02/21/25 12:00 FiO2 40 02/19/25 18:26 Intake & Output 02/20/25 02/21/25 02/21/25 18:59 06:59 18:59 Output Total 350 200 Balance -350 -200 Weight 90.718 kg 96.3 kg Output: Urine 350 200 Other: # Voids 2 # Bowel Movements 1 - Labs CBC & Chem 7: 02/21/25 04:43 02/21/25 04:43 Labs: Abnormal Lab Results - Last 24 Hours (Table) 02/20/25 02/21/25 02/21/25 Range/Units 05:34 04:43 04:43 RBC 3.33 L (4.40-5.60) 10*6/uL Hgb 7.7 L (13.0-17.0) g/dL Hct 25.6 L (39.6-50.0) % MCV 76.9 L (80.0-97.0) fL MCH 23.1 L (27.0-32.0) pg MCHC 30.1 L (32.0-37.0) g/dL MPV 8.8 L (9.5-12.2) fL Eosinophils # 0.43 H (0.04-0.35) 10*3/uL Chloride 96 L (98-107) mmol/L Carbon Dioxide 39 H (22-30) mmol/L BUN 52 H (9-20) mg/dL Creatinine 3.63 H (0.66-1.25) mg/dL Iron 34 L (65-175) UG/DL TIBC 157 L (228-460) UG/DL Transferrin 112.0 L (204.0-354.0) mg/dL Ferritin 451.0 H (22.0-322.0) ng/mL Total Protein 5.5 L (6.3-8.2) g/dL Albumin 2.9 L (3.5-5.0) g/dL
--- NOTE | 2025-02-21 14:06 | XR ---
EXAMINATION TYPE: XR chest 1V DATE OF EXAM: 02/21/2025 1:28 PM COMPARISON: 02/19/2025 CLINICAL INDICATION: Male, 89 years old with history of CHF, TECHNIQUE: XR chest 1V view(s) obtained. FINDINGS: The heart size is enlarged. The pulmonary vasculature is prominent. Diffuse increased lung markings are present bilaterally. There is persistent fullness of the right hi lar region. Small left pleural effusion may be present. IMPRESSION: 1. Diffuse increased lung markings with cardiomegaly and prominent pulmonary vascular markings. Corre late for congestive heart failure. Findings are similar to comparison. 2. Persistent prominence of the right hilum. Vascular prominence such as pulmonary hypertension or un derlying mass should be considered. Follow-up of the patient is stable. [facility], , 02/21/2025 2:03 PM
--- NOTE | 2025-02-21 17:05 | P.PN ---
Subjective Progress Note Date: 02/21/25 Jayce Feldman is a 89-year-old male patient who presented with complaints of increased shortness of breath. Patient has a past medical history of end-stage renal disease and recently has agreed to initiate peritoneal dialysis. Patient reports he has plans for appointment on Friday to receive peritoneal dialysis catheter. Patient also has past medical history of atrial fibrillation and CHF. Chest x-ray completed showing acute bilateral cardiopulmonary process most likely CHF. Lab work completed showing white blood cell 6.71, hemoglobin 8.2, creatinine 3.9, bun 54, potassium 3.2. Troponin 0.075, 0.086 and 0.097. BNP elevated at 12,600. Patient did receive IV Lasix in ER. At this time patient will be admitted cardiology and nephrology services have been consulted. 2D echo has been ordered Home meds resumed. Patient complaints of shortness of breath. Patient denies chest pain. Patient denies nausea vomiting or diarrhea. Patient denies any urinary burning or frequency. Current vital signs temp 97, heart rate 76, respiratory rate 22, blood pressure 153/73 with pulse ox of 95% on 4 L On 02/21/2025 patient was seen and examined in the ICU he is alert and oriented x 3 in no apparent distress he is complaining of shortness of breath otherwise he denies any complaints at this time there is no fever or chills no headache or dizziness no chest pain no cough no nausea or vomiting no abdominal pain no diarrhea and no urinary symptoms. Patient is followed by multiple specialist i ncluding nephrology, cardiology consultation for critical care was initiated. Prognosis is guarded Objective - Vital Signs Vital signs: Vital Signs Temp 97.8 F 02/21/25 08:00 Pulse 77 02/21/25 08:00 Resp 24 02/21/25 08:00 BP 148/65 02/21/25 08:00 Pulse Ox 95 02/21/25 08:12 FiO2 40 02/19/25 18:26 Intake & Output 02/20/25 02/21/25 02/21/25 18:59 06:59 18:59 Output Total 350 Balance -350 Weight 90.718 kg 96.3 kg Output: Urine 350 Other: # Voids 2 # Bowel Movements 1 - Exam In general patient is alert and oriented x 3 in no apparent distress Head normocephalic and atraumatic Neck supple no JVD no goiter Lungs exam reveals a scattered crackles in both lung goodman no wheezing Heart exam reveals irregular heart sounds S1-S2 no gallops no murmurs Abdomen is soft nontender nondistended positive bowel sounds no hepatosp lenomegaly Extremities no edema Neuro alert and orientated to 3 - Labs CBC & Chem 7: 02/21/25 04:43 02/21/25 04:43 Labs: Abnormal Lab Results - Last 24 Hours (Table) 02/20/25 02/21/25 02/21/25 Range/Units 05:34 04:43 04:43 RBC 3.33 L (4.40-5.60) 10*6/uL Hgb 7.7 L (13.0-17.0) g/dL Hct 25.6 L (39.6-50.0) % MCV 76.9 L (80.0-97.0) fL MCH 23.1 L (27.0-32.0) pg MCHC 30.1 L (32.0-37.0) g/dL MPV 8.8 L (9.5-12.2) fL Eosinophils # 0.43 H (0.04-0.35) 10*3/uL Chloride 96 L (98-107) mmol/L Carbon Dioxide 39 H (22-30) mmol/L BUN 52 H (9-20) mg/dL Creatinine 3.63 H (0.66-1.25) mg/dL Iron 34 L (65-175) UG/DL TIBC 157 L (228-460) UG/DL Transferrin 112.0 L (204.0-354.0) mg/dL Ferritin 451.0 H (22.0-322.0) ng/mL Total Protein 5.5 L (6.3-8.2) g/dL Albumin 2.9 L (3.5-5.0) g/dL Assessment and Plan Assessment: Shortness of breath secondary to acute CHF exacerbation End-stage renal disease. Patient is now agreeable to peritoneal dialysis schedule peritoneal dialysis catheter placement for this Friday Elevated troponins Acute on chronic CHF exacerbation History of essential hypertension History of anemia of chronic kidney disease History of atrial fibrillation maintained on Eliquis History of BPH History of gout History of hypothyroidism DVT prophylaxis Eliquis. GI prophylax Protonix Cardiology and nephrology services consulted 2D echo ordered Repeat labs ordered
[2025-02-22] MEDS: DICYCLOMINE 20 MG TAB PO PRN (02:59)
[2025-02-22] MEDS: METOPROLOL SUCCINATE (ER) 25 MG TAB.ER.24H PO STA (03:00)
[2025-02-22 03:19] LABS: Basophils # (A) 0.02 10*3/uL (0.00-0.10); Basophils % (A) 0.3 %; Eosinophils # (A) 0.36 10*3/uL (0.04-0.35); Eosinophils % (A) 4.9 %; HCT 26.7 % (39.6-50.0); HGB 8.1 g/dL (13.0-17.0); Lymphocytes # (A) 1.14 10*3/uL (0.90-5.00); Lymphocytes % (A) 15.4 %; MCH 22.9 pg (27.0-32.0); MCHC 30.3 g/dL (32.0-37.0); MCV 75.6 fL (80.0-97.0); Monocytes # (A) 0.54 10*3/uL (0.20-1.00); Monocytes % (A) 7.3 %; Neutrophils # (A) 5.33 10*3/uL (1.80-7.70); Neutrophils % (A) 71.8 %; Platelet Count 198 10*3/uL (140-440); RBC 3.53 10*6/uL (4.40-5.60); RDW 19.8 % (11.5-14.5); WBC 7.41 10*3/uL (4.50-10.00)
[2025-02-22 03:32] LABS: African American GFR (CKD) 14 (>60 ml/min/1.73 sqM); Blood Urea Nitrogen 49 mg/dL (9-20); Calcium 9.0 mg/dL (8.4-10.2); Chloride 96 mmol/L (98-107); Glucose 97 mg/dL (74-99); Magnesium 1.9 mg/dL (1.6-2.3); Non-African American GFR(CKD) 12 (>60 ml/min/1.73 sqM); Potassium 3.8 mmol/L (3.5-5.1); Sodium 140 mmol/L (137-145)
[2025-02-22 03:39] LABS: Anion Gap 5 mmol/L; Carbon Dioxide 39 mmol/L (22-30)
--- NOTE | 2025-02-22 07:00 | P.CNPUL ---
History of Present Illness Consult date: 02/22/25 Requesting physician: Abhilash Michel Reason for consult: dyspnea Chief complaint: Shortness of breath History of present illness: Patient about the same patient presented emergency department back in 02/19/2025 with chief complaint of increased work of breathing and lower extremity edema. He has past medical history significant for atrial fibrillation, heart failure, chronic kidney disease and is being considered for peritoneal dialysis catheter. Also, has history of COPD, remote history of tobacco use over 35 years ago, GERD/reflux, hypertension, hypothyroidism, among other things. Hyperlipidemia. Chest x-ray done on admission showing increased lung markings with cardiomegaly and pulmonary vascular markings. Severe enlarged pulmonary artery. Possible small left pleural effusion. NT proBNP was significant elevated at 12,600. Also, patient is known to have end-stage renal disease, and has refused hemodialysis in the past. He is being considered for peritoneal dialysis catheter tomorrow. Recent lab work including a CBC with a WBC count of 6.9, hemoglobin 7.7, platelets 158. BMP with a sodium 142, potassium 3.7, chloride 96, serum bicarb 39, BUN 52, creatinine 3.63, glucose 93. Serial troponins also marginally elevated at 0.075, 0.086, and 0.097. Transthoracic echocardiogram done this admission estimating a left ventricular ejection fraction of 65 to 70% with severe aortic valve stenosis and possible moderate aortic regurgitation. Moderate mitral insufficiency and severe pulmonary hypertension. RVSP 73.3 mmHg. Pulmonary consultation placed yesterday for increased work of breathing. Lasix drip is infusing at 10 mg/h. He does have an indwelling urinary catheter. He is making excellent urine output. His fluid balance is -1.5 L so far over the last 24 hours. He is being seen on the cardiac stepdown unit. States his breathing is "200% improved". The swelling in his legs is also improved. Denies any chest pain. Denies any lightheadedness or syncopal events. Denies any infectious symptoms. Endorses remote history of smoking, over 35 years ago. Denies any history of COPD or asthma. Current vital signs: Temperature 97.9 F, heart rate 94 bpm, blood pressure 152/73 mmHg, nontachypneic, SpO2 recorded 97% on 2 L/min nasal cannula. Review of Systems Constitutional: Denies chills, Denies fever Ears, nose, mouth and throat: Reports epistaxis (Small), Denies nasal congestion, Denies nasal discharge, Denies post-nasal drip, Denies sinus pain, Denies sinus pressure, Denies sore throat Cardiovascular: Reports leg edema, Denies chest pain, Denies dyspnea on exertion, Denies orthopnea, Denies palpitations, Denies paroxysmal nocturnal dyspnea, Denies syncope Respiratory: Denies congestion, Denies cough, Denies cough with sputum, Denies dyspnea, Denies hemoptysis, Denies wheezing Gastrointestinal: Denies abdominal pain, Denies diarrhea, Denies hematemesis, Denies hematochezia, Denies melena, Denies nausea, Denies vomiting Genitourinary: Denies dysuria, Denies flank pain, Denies hematuria Musculoskeletal: Denies limitation of motion Integumentary: Denies rash Neurological: Denies seizures, Denies syncope Psychiatric: Denies anxiety, Denies depression Past Medical History Past Medical History: Atrial Fibrillation, Heart Failure, COPD, Eye Disorder, GERD/Reflux, Hearing Disorder / Deafness, Hypertension, Osteoarthritis (OA), Pneumonia, Prostate Disorder, Renal Disease, Sleep Apnea/CPAP/BIPAP, Thyroid Disorder Additional Past Medical History / Comment(s): uses oxygen 2 L 24 hours a day, gout, anemia, kidney disease History of Any Multi-Drug Resistant Organisms: None Reported Past Surgical History: Heart Catheterization With Stent, Joint Replacement, O rthopedic Surgery Additional Past Surgical History / Comment(s): left knee replaced, cataract surg., ORIF both legs. Heart cath w/stent per pt's EMR-01/2018. Past Anesthesia/Blood Transfusion Reactions: No Reported Reaction Date of Last Stent Placement:: 01/30/2018 Past Psychological History: No Psychological Hx Reported Smoking Status: Former smoker Past Alcohol Use History: None Reported Additional Past Alcohol Use History / Comment(s): quit smoking 35 yrs. ago, >ppd for 40 yrs. Past Drug Use History: None Reported - Past Family History Brother(s) Family Medical History: Cancer Medications and Allergies Home Medications Medication Instructions Recorded Confirmed Type Furosemide [Lasix] 40 mg PO DAILY 08/11/17 02/19/25 History Levothyroxine Sodium [Synthroid] 25 mcg PO DAILY 08/11/17 02/19/25 History Montelukast [Singulair] 10 mg PO HS 08/11/17 02/19/25 History Apixaban [Eliquis] 2.5 mg PO BID 01/30/18 02/19/25 History Aspirin 81 mg PO DAILY chew 02/04/18 02/19/25 Rx Pantoprazole [Protonix] 40 mg PO HS 10/20/19 02/19/25 History Cetirizine HCl 10 mg PO DAILY 09/06/20 02/19/25 History Tamsulosin [Flomax] 0.4 mg PO DAILY 09/06/20 02/19/25 History amLODIPine [Norvasc] 5 mg PO DAILY 09/06/20 02/19/25 History calcitrioL [Rocaltrol] 0.5 mcg PO Q2D 09/06/20 02/19/25 History Atorvastatin [Lipitor] 80 mg PO HS 12/20/21 02/19/25 History Darbepoetin Todd [Aranesp] 40 mcg SQ Q14D 01/18/25 02/19/25 History Diphenox-Atrop 2.5-0.025 mg 1 tab PO BID 01/18/25 02/19/25 History [Lomotil] Ferrous Sulfate [Iron (65 MG 325 mg PO DAILY 01/18/25 02/19/25 History Elemental)] Finasteride [Proscar] 5 mg PO DAILY 01/18/25 02/19/25 History HYDROcodone/APAP 10-325MG [[place] 1 tab PO Q6H PRN 01/18/25 02/19/25 History 10-325] Metoprolol Succinate (ER) [Toprol 25 mg PO DAILY 01/18/25 02/19/25 History XL] Vitamin B Complex W/Vitamin C 1 tab PO HS 01/18/25 02/19/25 History Vitamin D3(Unknown Dose) 1 cap PO HS 01/18/25 02/19/25 History allopurinoL 100 mg PO DAILY 01/18/25 02/19/25 History hydrALAZINE HCL [Apresoline] 25 mg PO DAILY 01/18/25 02/19/25 History Sodium Bicarbonate Tab 650 mg PO BID 30 Days #60 tab 01/21/25 02/19/25 Rx Dicyclomine [Bentyl] 20 mg PO QID PRN 02/19/25 02/19/25 History polyethylene glycoL 3350 [Miralax] 17 gm PO DAILY PRN 02/19/25 02/19/25 History Allergies Allergy/AdvReac Type Severity Reaction Status Date / Time Penicillins Allergy Itching Verified 02/19/25 17:21 Tetanus Vaccines and Toxoid AdvReac Swelling Verified 02/19/25 17:21 Physical Exam Vitals: Vital Signs Temp Pulse Resp BP Pulse Ox 02/22/25 00:00 97.9 F 94 18 152/73 97 02/21/25 20:00 98.1 F 92 20 140/60 97 02/21/25 15:38 97.6 F 91 22 154/68 93 L 02/21/25 12:00 97.8 F 78 24 150/78 95 02/21/25 08:12 95 02/21/25 08:00 97.8 F 77 24 148/65 95 02/21/25 04:00 97.5 F L 73 14 152/66 98 Intake and Output 02/21/25 02/21/25 02/22/25 14:59 22:59 06:59 Intake Total 100 Output Total 200 280 825 Balance -200 -180 -825 Intake: Intake, IV Titration 100 Amount Furosemide 100 mg In 100 Sodium Chloride 0.9% 90 ml @ 10 MG/HR 10 mls/hr IV .Q10H [facility] Rx#: [id number] Output: Urine 200 280 825 Other: Voiding Method Indwelling Catheter # Bowel Movements 1 GENERAL EXAM: Alert, 89-year-old -[place] male, on 2 L/min nasal cannula, comfortable in no apparent distress. Did get up to use the bedside commode without any increased work of breathing.. HEAD: Normocephalic and atraumatic EYES: Normal reaction of pupils, equal size. Corneal arcus. Anicteric. NOSE: Clear with pink turbinates. THROAT: No erythema or exudates. NECK: No masses, no JVD. CHEST: No chest wall deformity. LUNGS: Equal air entry with minimal bibasilar inspiratory crackles. No conversational dyspnea or accessory muscle use.. CVS: S1 and S2 normal, harsh grade 3 systolic murmur, irregular rhythm. No extra heart sounds ABDOMEN: No hepatosplenomegaly, active bowel sounds, no guarding or rigidity. SPINE: No scoliosis or deformity SKIN: No rashes CENTRAL NERVOUS SYSTEM: No focal deficits, tone is normal in all 4 extremities. EXTREMITIES: There is no peripheral edema, clubbing, or cyanosis. Peripheral pulses are intact. Results - Laboratory Findings CBC and BMP: 02/22/25 02:59 02/22/25 06:39 PT/INR, D-dimer PT 11.2 sec (10.0-12.5) 02/19/25 13:37 INR 1.0 (<1.2) 02/19/25 13:37 Abnormal lab findings: Abnormal Labs 02/19/25 02/19/25 02/19/25 13:37 13:37 13:37 RBC 3.54 L Hgb 8.2 L Hct 26.7 L MCV 75.4 L MCH 23.2 L MCHC 30.7 L MPV Lymphocytes # 0.76 L Eosinophils # Immature Plt Fraction 0.9 L Potassium 3.2 L Chloride 96 L Carbon Dioxide 39 H BUN 54 H Creatinine 3.90 H Iron TIBC Transferrin Ferritin Troponin I 0.075 H* Total Protein 6.1 L Albumin 3.3 L 02/19/25 02/19/25 02/20/25 15:51 20:50 05:34 RBC Hgb Hct MCV MCH MCHC MPV Lymphocytes # Eosinophils # Immature Plt Fraction Potassium 3.4 L Chloride 96 L Carbon Dioxide 40 H BUN 55 H Creatinine 3.81 H Iron TIBC Transferrin Ferritin Troponin I 0.086 H* 0.097 H* Total Protein Albumin 02/20/25 02/21/25 02/21/25 05:34 04:43 04:43 RBC 3.33 L Hgb 7.7 L Hct 25.6 L MCV 76.9 L MCH 23.1 L MCHC 30.1 L MPV 8.8 L Lymphocytes # Eosinophils # 0.43 H Immature Plt Fraction Potassium Chloride 96 L Carbon Dioxide 39 H BUN 52 H Creatinine 3.63 H Iron 34 L TIBC 157 L Transferrin 112.0 L Ferritin 451.0 H Troponin I Total Protein 5.5 L Albumin 2.9 L - Diagnostic Findings Chest x-ray: image reviewed Assessment and Plan Assessment: Acute hypoxemic respiratory failure, currently on 2 L/min nasal cannula, secondary to acute diastolic congestive heart failure and valvular heart disease. Chest x-ray remarkable for cardiomegaly, pulmonary vascular congestion. NT proBNP elevated at 12,600. Currently on a Lasix infusion at 10 mg/h and the patient is also on Zaroxolyn the patient is producing excellent amount of urine output. End-stage renal disease, being considered for peritoneal dialysis catheter, will inserted peritoneal catheter today with subsequent PD dialysis Valvular heart disease, echocardiogram done this admission estimating left ventricular ejection fraction of 65 to 70% along with severe aortic valve stenosis and possible moderate aortic regurgitation. 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 Anemia of chronic disease, hemoglobin 7.7 g/dL Paroxysmal atrial fibrillation, chronically anticoagulated on Eliquis Mild troponin leak, possibly secondary to demand ischemia and poor renal clearance Hypertension History of hyperlipidemia History of coronary artery disease with previous stents to the RCA and LAD Hypothyroidism Gastroesophageal reflux disease Remote history of tobacco use over 35 years ago Plan: Patient's medications, labs, chest x-ray reviewed Currently on 2 L/min nasal cannula, wean as tolerated Continues on Lasix infusion at 10 mg/h. Cardiology also consulted Eliquis has been resumed Being considered for possible peritoneal dialysis catheter during this hospitalization Case to be reviewed with my supervising physician I have personally seen and examined the patient, performed the documentation and the assessment and plan as written. Number of minutes spent on the visit:20 This is a joint evaluation this was done along with the nurse practitioner. This evaluation was done in 35 minutes. The patient is being seen for shortness of breath. The patient is known to have chronic stage V kidney disease and the patient is being prepped for peritoneal dialysis. The patient will have his peritoneal catheter inserted today. Based on the most recent blood work, the patient has a GFR of 14-15. The patient is also coming in with shortness of breath, volume overload and the patient's chest x-ray is showing diffuse increased lung markings with cardiomegaly and prominent pulmonary vascular markings consistent with CHF and volume overload. Echocardiogram that was done on 02/21/2025 showed a preserved LV function. The patient however has severe aortic stenosis and moderate degree of aortic regurgitation without any pericardial effusion. The patient also has moderate mitral insufficiency and severe pulmonary hypertension. For now, the patient is on IV Lasix drip at 10 mg an hour and the patient is producing excellent amount of urine output and the patient seems to be a negative fluid balance. The patient is also on Zaroxolyn 5 mg p.o. daily. Oxygenation is stable and the patient is on 2 L of oxygen by nasal cannula with a pulse ox of 98%. Rest of the medications are unchanged and the patient is being seen by nephrology. The plan is to initiate peritoneal dialysis once the peritoneal catheter is inserted. Blood pressure is stable, slightly elevated. Remains on Norvasc 5 mg p.o. daily. Remains on hydralazine 25 mg p.o. 3 times daily. Also on Toprol-XL 25 mg p.o. daily. Time with Patient: Greater than 30
[2025-02-22 07:36] LABS: ALT 8 U/L (4-49); AST 18 U/L (17-59); African American GFR (CKD) 15 (>60 ml/min/1.73 sqM); Albumin 3.3 g/dL (3.5-5.0); Alkaline Phosphatase 81 U/L (38-126); Anion Gap 4 mmol/L; Blood Urea Nitrogen 49 mg/dL (9-20); Calcium 9.0 mg/dL (8.4-10.2); Carbon Dioxide 40 mmol/L (22-30); Chloride 98 mmol/L (98-107); Glucose 97 mg/dL (74-99); Non-African American GFR(CKD) 13 (>60 ml/min/1.73 sqM); Potassium 4.0 mmol/L (3.5-5.1); Sodium 142 mmol/L (137-145); Total Protein 6.2 g/dL (6.3-8.2)
--- NOTE | 2025-02-22 12:10 | P.PN ---
Subjective Patient is seen for follow-up of chronic kidney disease stage V with renal function at baseline. He was admitted with shortness of breath and volume overload. Currently maintained on Lasix drip. 24-hour urine output at 2.1 L. Shortness of breath has improved. Patient has been evaluated by surgery and is scheduled for PD catheter placement today. He is concerned that his breathing is not yet completely improved prior to surgery. Currently with indwelling Wang catheter. About 300 mL of urine was obtained. Wang catheter was placed in the ICU Objective - Vital Signs Vital signs: Vital Signs Temp 98.3 F 02/22/25 09:03 Pulse 84 02/22/25 09:03 Resp 16 02/22/25 09:03 BP 144/55 02/22/25 09:03 Pulse Ox 99 02/22/25 09:03 FiO2 40 02/19/25 18:26 Intake & Output 02/21/25 02/22/25 02/22/25 18:59 06:59 18:59 Intake Total 200 Output Total 480 1700 Balance -480 -1500 Weight 93 kg Intake: Intake, IV Titration 200 Amount Furosemide 100 mg In 200 Sodium Chloride 0.9% 90 ml @ 10 MG/HR 10 mls/hr IV .Q10H [facility] Rx#: [id number] Output: Urine 480 1700 Other: Voiding Method Indwelling Catheter Indwelling Catheter # Bowel Movements 1 - Exam Patient is awake, comfortable Alert oriented x 3 Examination of the heart S1 and S2 Examination of the lungs bilateral breath sounds are heard Abdomen is soft, mild tenderness lower abdomen Examination of lower extremities shows edema 1+ and chronic skin changes [employer] exam grossly intact - Labs CBC & Chem 7: 02/22/25 02:59 02/22/25 06:39 Labs: Abnormal Lab Results - Last 24 Hours (Table) 02/22/25 02/22/25 02/22/25 Range/Units 02:59 02:59 03:03 RBC 3.53 L (4.40-5.60) 10*6/uL Hgb 8.1 L (13.0-17.0) g/dL Hct 26.7 L (39.6-50.0) % MCV 75.6 L (80.0-97.0) fL MCH 22.9 L (27.0-32.0) pg MCHC 30.3 L (32.0-37.0) g/dL Eosinophils # 0.36 H (0.04-0.35) 10*3/uL Chloride 96 L (98-107) mmol/L Carbon Dioxide 39 H (22-30) mmol/L BUN 49 H (9-20) mg/dL Creatinine 4.10 H (0.66-1.25) mg/dL Troponin I 0.088 H* (0.000-0.034) ng/mL Total Protein (6.3-8.2) g/dL Albumin (3.5-5.0) g/dL /24/25 Range/Units 06:39 RBC (4.40-5.60) 10*6/uL Hgb (13.0-17.0) g/dL Hct (39.6-50.0) % MCV (80.0-97.0) fL MCH (27.0-32.0) pg MCHC (32.0-37.0) g/dL Eosinophils # (0.04-0.35) 10*3/uL Chloride (98-107) mmol/L Carbon Dioxide 40 H (22-30) mmol/L BUN 49 H (9-20) mg/dL Creatinine 3.84 H (0.66-1.25) mg/dL Troponin I (0.000-0.034) ng/mL Total Protein 6.2 L (6.3-8.2) g/dL Albumin 3.3 L (3.5-5.0) g/dL Assessment and Plan Assessment: 1. 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 Renal function at baseline 2. Acute hypoxic respiratory failure secondary to CHF and volume overload, improving 3. Volume overload. 4. Hypokalemia from diuresis. 5. Hypertension with chronic kidney disease. 6. Chronic kidney disease mineral bone disease. 7. Anemia of chronic kidney disease. Plan: Continue with Lasix drip Add Zaroxolyn Discussed with patient regarding plans for PD catheter placement which can be done during his hospitalization as well. No urgent need for dialysis as long as patient has good urine output and volume status improves. Continue with calcitriol
--- NOTE | 2025-02-22 12:42 | P.PN ---
Subjective Progress Note Date: 02/22/25 Jayce Feldman is a 89-year-old male patient who presented with complaints of increased shortness of breath. Patient has a past medical history of end-stage renal disease and recently has agreed to initiate peritoneal dialysis. Patient reports he has plans for appointment on Friday to receive peritoneal dialysis catheter. Patient also has past medical history of atrial fibrillation and CHF. Chest x-ray completed showing acute bilateral cardiopulmonary process most likely CHF. Lab work completed showing white blood cell 6.71, hemoglobin 8.2, creatinine 3.9, bun 54, potassium 3.2. Troponin 0.075, 0.086 and 0.097. BNP elevated at 12,600. Patient did receive IV Lasix in ER. At this time patient will be admitted cardiology and nephrology services have been consulted. 2D echo has been ordered Home meds resumed. Patient complaints of shortness of breath. Patient denies chest pain. Patient denies nausea vomiting or diarrhea. Patient denies any urinary burning or frequency. Current vital signs temp 97, heart rate 76, respiratory rate 22, blood pressure 153/73 with pulse ox of 95% on 4 L On 02/21/2025 patient was seen and examined in the ICU he is alert and oriented x 3 in no apparent distress he is complaining of shortness of breath otherwise he denies any complaints at this time there is no fever or chills no headache or dizziness no chest pain no cough no nausea or vomiting no abdominal pain no diarrhea and no urinary symptoms. Patient is followed by multiple specialist i ncluding nephrology, cardiology consultation for critical care was initiated. Prognosis is guarded On 02/22/2025 patient is alert and oriented x 3. Patient remains on Lasix drip. Tentative plans for peritoneal dialysis catheter placement. Current vital signs temp 98.3, heart rate 78, respiratory rate 16, blood pressure 144/55 with pulse ox of 99% on 2 L. Patient having good urine output at this time. Patient denies chest pain or shortness of breath. Patient denies nausea vomiting or diarrhea. Patient denies any urinary burning or frequency Objective - Vital Signs Vital signs: Vital Signs Temp 98.3 F 02/22/25 09:03 Pulse 78 02/22/25 12:20 Resp 18 02/22/25 12:20 BP 163/74 02/22/25 12:20 Pulse Ox 100 02/22/25 12:20 FiO2 40 02/19/25 18:26 Intake & Output 02/21/25 02/22/25 02/22/25 18:59 06:59 18:59 Intake Total 200 Output Total 480 1700 Balance -480 -1500 Weight 93 kg Intake: Intake, IV Titration 200 Amount Furosemide 100 mg In 200 Sodium Chloride 0.9% 90 ml @ 10 MG/HR 10 mls/hr IV .Q10H [facility] Rx#: [id number] Output: Urine 480 1700 Other: Voiding Method Indwelling Catheter Indwelling Catheter # Bowel Movements 1 - Exam In general patient is alert and oriented x 3 in no apparent distress Head normocephalic and atraumatic Neck supple no JVD no goiter Lungs exam reveals a scattered crackles in both lung goodman no wheezing Heart exam reveals irregular heart sounds S1-S2 no gallops no murmurs Abdomen is soft nontender nondistended positive bowel sounds no hepatosplenomegaly Extremities no edema Neuro alert and orientated to 3 - Labs CBC & Chem 7: 02/22/25 02:59 02/22/25 06:39 Labs: Abnormal Lab Results - Last 24 Hours (Table) 02/22/25 02/22/25 02/22/25 Range/Units 02:59 02:59 03:03 RBC 3.53 L (4.40-5.60) 10*6/uL Hgb 8.1 L (13.0-17.0) g/dL Hct 26.7 L (39.6-50.0) % MCV 75.6 L (80.0-97.0) fL MCH 22.9 L (27.0-32.0) pg MCHC 30.3 L (32.0-37.0) g/dL Eosinophils # 0.36 H (0.04-0.35) 10*3/uL Chloride 96 L (98-107) mmol/L Carbon Dioxide 39 H (22-30) mmol/L BUN 49 H (9-20) mg/dL Creatinine 4.10 H (0.66-1.25) mg/dL Troponin I 0.088 H* (0.000-0.034) ng/mL Total Protein (6.3-8.2) g/dL Albumin (3.5-5.0) g/dL 02/22/25 Range/Units 06:39 RBC (4.40-5.60) 10*6/uL Hgb (13.0-17.0) g/dL Hct (39.6-50.0) % MCV (80.0-97.0) fL MCH (27.0-32.0) pg MCHC (32.0-37.0) g/dL Eosinophils # (0.04-0.35) 10*3/uL Chloride (98-107) mmol/L Carbon Dioxide 40 H (22-30) mmol/L BUN 49 H (9-20) mg/dL Creatinine 3.84 H (0.66-1.25) mg/dL Troponin I (0.000-0.034) ng/mL Total Protein 6.2 L (6.3-8.2) g/dL Albumin 3.3 L (3.5-5.0) g/dL Assessment and Plan Assessment: Shortness of breath secondary to acute CHF exacerbation End-stage renal disease. Patient is now agreeable to peritoneal dialysis schedule peritoneal dialysis catheter placement for this Friday Elevated troponins Acute on chronic CHF exacerbation History of essential hypertension History of anemia of chronic kidney disease History of atrial fibrillation maintained on Eliquis History of BPH History of gout History of hypothyroidism DVT prophylaxis Eliquis. GI prophylax Protonix Cardiology and nephrology services consulted Patient started on Lasix drip Tentative plans for peritoneal dialysis catheter placement Repeat labs ordered
--- NOTE | 2025-02-22 13:25 | P.GSCN ---
History of Present Illness Consult date: 02/22/25 History of present illness: CHIEF COMPLAINT: Shortness of breath HISTORY OF PRESENT ILLNESS: This is a 89-year-old male who presented with shortness of breath and evidence of CHF exacerbation. He is on a Lasix drip. He is followed by nephrology service and cardiology service. His last dose of Eliquis was last night. Per nursing staff patient did have ectopy noted on his telemetry. Patient is on 3 L of oxygen. He usually requires 2 L at home. Patient has chronic kidney disease and is scheduled to have a peritoneal dialysis catheter placed outpatient. But they are now requesting that the PD catheter to be placed prior to patient's discharge. PAST MEDICAL HISTORY: See below PAST SURGICAL HISTORY: See below MEDICATIONS: See below ALLERGIES: See below SOCIAL HISTORY: No illicit drug use. REVIEW OF SYSTEMS: CONSTITUTIONAL: Denies fever or chills. HEENT: Denies blurred vision, vision changes, or eye pain. Denies hemoptysis CARDIOVASCULAR: Denies chest pain or pressure. RESPIRATORY: No shortness of breath. GASTROINTESTINAL: See HPI for pertinent findings HEMATOLOGIC: Denies bleeding disorders. GENITOURINARY: Denies any blood in urine or increased urinary frequency. SKIN: Denies pruitis. Denies rash. PHYSICAL EXAM: VITAL SIGNS: Reviewed GENERAL: Well-developed in no acute distress. HEENT: No sclera icterus. Extraocular movements grossly intact. Moist buccal mucosa. Head is atraumatic, normocephalic. No nasal drainage. ABDOMEN: Soft. Nondistended. Mild tenderness lower abdomen NEUROLOGIC: Alert and oriented. Cranial nerves II through XII grossly intact. LABORATORY DATA: WBC 7.41 Hgb 8.1 platelets 198 Sodium 142 potassium 4.0 creatinine 3.84 IMAGING: ASSESSMENT: 1. Chronic kidney disease 2. CHF and fluid overload PLAN: - Continue treatment of fluid overload and CHF - Hold Eliquis - Will plan for PD catheter placement during this admission - Cardiology has cleared patient to proceed with surgery Physician Wildlife Policy Professional note has been reviewed by physician. Signing provider agrees with the documented findings, assessment, and plan of care. Attestation Patient seen and examined at bedside. Patient is known to me as an outpatient secondary to his kidney disease with plan for peritoneal dialysis catheter placement. He did present with CHF exacerbation and has had some shortness of breath. He is on Lasix drip. He is followed by nephrology service and cardiology service. Some ectopy noted on telemetry. Attempt will be made at placing peritoneal dialysis catheter prior to discharge. Cardiology has cleared. Will discuss with nephrology on timing based on their clearance. Ailyn Maki DO Past Medical History Past Medical History: Atrial Fibrillation, Heart Failure, COPD, Eye Disorder, GERD/Reflux, Hearing Disorder / Deafness, Hypertension, Osteoarthritis (OA), Pneumonia, Prostate Disorder, Renal Disease, Sleep Apnea/CPAP/BIPAP, Thyroid Disorder Additional Past Medical History / Comment(s): uses oxygen 2 L 24 hours a day, gout, anemia, kidney disease History of Any Multi-Drug Resistant Organisms: None Reported Past Surgical History: Heart Catheterization With Stent, Joint Replacement, Orthopedic Surgery Additional Past Surgical History / Comment(s): left knee replaced, cataract surg., ORIF both legs. Heart cath w/stent per pt's EMR-01/2018. Past Anesthesia/Blood Transfusion Reactions: No Reported Reaction Date of Last Stent Placement:: 01/30/2018 Past Psychological History: No Psychological Hx Reported Smoking Status: Former smoker Past Alcohol Use History: None Reported Additional Past Alcohol Use History / Comment(s): quit smoking 35 yrs. ago, >ppd for 40 yrs. Past Drug Use History: None Reported - Past Family History Brother(s) Family Medical History: Cancer Medications and Allergies Home Medications Medication Instructions Recorded Confirmed Type Furosemide [Lasix] 40 mg PO DAILY 08/11/17 02/19/25 History Levothyroxine Sodium [Synthroid] 25 mcg PO DAILY 08/11/17 02/19/25 History Montelukast [Singulair] 10 mg PO HS 08/11/17 02/19/25 History Apixaban [Eliquis] 2.5 mg PO BID 01/30/18 02/19/25 History Aspirin 81 mg PO DAILY chew 02/04/18 02/19/25 Rx Pantoprazole [Protonix] 40 mg PO HS 10/20/19 02/19/25 History Cetirizine HCl 10 mg PO DAILY 09/06/20 02/19/25 History Tamsulosin [Flomax] 0.4 mg PO DAILY 09/06/20 02/19/25 History amLODIPine [Norvasc] 5 mg PO DAILY 09/06/20 02/19/25 History calcitrioL [Rocaltrol] 0.5 mcg PO Q2D 09/06/20 02/19/25 History Atorvastatin [Lipitor] 80 mg PO HS 12/20/21 02/19/25 History Darbepoetin Todd [Aranesp] 40 mcg SQ Q14D 01/18/25 02/19/25 History Diphenox-Atrop 2.5-0.025 mg 1 tab PO BID 01/18/25 02/19/25 History [Lomotil] Ferrous Sulfate [Iron (65 MG 325 mg PO DAILY 01/18/25 02/19/25 History Elemental)] Finasteride [Proscar] 5 mg PO DAILY 01/18/25 02/19/25 History HYDROcodone/APAP 10-325MG [[place] 1 tab PO Q6H PRN 01/18/25 02/19/25 History 10-325] Metoprolol Succinate (ER) [Toprol 25 mg PO DAILY 01/18/25 02/19/25 History XL] Vitamin B Complex W/Vitamin C 1 tab PO HS 01/18/25 02/19/25 History Vitamin D3(Unknown Dose) 1 cap PO HS 01/18/25 02/19/25 History allopurinoL 100 mg PO DAILY 01/18/25 02/19/25 History hydrALAZINE HCL [Apresoline] 25 mg PO DAILY 01/18/25 02/19/25 History Sodium Bicarbonate Tab 650 mg PO BID 30 Days #60 tab 01/21/25 02/19/25 Rx Dicyclomine [Bentyl] 20 mg PO QID PRN 02/19/25 02/19/25 History polyethylene glycoL 3350 [Miralax] 17 gm PO DAILY PRN 02/19/25 02/19/25 History Allergies Allergy/AdvReac Type Severity Reaction Status Date / Time Penicillins Allergy Itching Verified 02/19/25 17:21 Tetanus Vaccines and Toxoid AdvReac Swelling Verified 02/19/25 17:21 Surgical - Exam Osteopathic Statement: *. No significant issues noted on an osteopathic structural exam other than those noted in the History and Physical/Consult. Vital Signs Temp Pulse Resp BP Pulse Ox 97.9 F 99 26 H 153/71 78 L 02/19/25 13:02 02/19/25 13:02 02/19/25 13:02 02/19/25 13:02 02/19/25 13:02 Results - Labs 02/22/25 02:59 02/22/25 06:39 Abnormal Lab Results - Last 24 Hours (Table) 02/22/25 02/22/25 02/22/25 Range/Units 02:59 02:59 03:03 RBC 3.53 L (4.40-5.60) 10*6/uL Hgb 8.1 L (13.0-17.0) g/dL Hct 26.7 L (39.6-50.0) % MCV 75.6 L (80.0-97.0) fL MCH 22.9 L (27.0-32.0) pg MCHC 30.3 L (32.0-37.0) g/dL Eosinophils # 0.36 H (0.04-0.35) 10*3/uL Chloride 96 L (98-107) mmol/L Carbon Dioxide 39 H (22-30) mmol/L BUN 49 H (9-20) mg/dL Creatinine 4.10 H (0.66-1.25) mg/dL Troponin I 0.088 H* (0.000-0.034) ng/mL Total Protein (6.3-8.2) g/dL Albumin (3.5-5.0) g/dL 02/22/25 Range/Units 06:39 RBC (4.40-5.60) 10*6/uL Hgb (13.0-17.0) g/dL Hct (39.6-50.0) % MCV (80.0-97.0) fL MCH (27.0-32.0) pg MCHC (32.0-37.0) g/dL Eosinophils # (0.04-0.35) 10*3/uL Chloride (98-107) mmol/L Carbon Dioxide 40 H (22-30) mmol/L BUN 49 H (9-20) mg/dL Creatinine 3.84 H (0.66-1.25) mg/dL Troponin I (0.000-0.034) ng/mL Total Protein 6.2 L (6.3-8.2) g/dL Albumin 3.3 L (3.5-5.0) g/dL Diabetes panel 02/22/25 02/22/25 Range/Units 02:59 06:39 Sodium 140 142 (137-145) mmol/L Potassium 3.8 4.0 (3.5-5.1) mmol/L Chloride 96 L 98 (98-107) mmol/L Carbon Dioxide 39 H 40 H (22-30) mmol/L BUN 49 H 49 H (9-20) mg/dL Creatinine 4.10 H 3.84 H (0.66-1.25) mg/dL Glucose 97 97 (74-99) mg/dL Calcium 9.0 9.0 (8.4-10.2) mg/dL AST 18 (17-59) U/L ALT 8 (4-49) U/L Alkaline Phosphatase 81 (38-126) U/L Total Protein 6.2 L (6.3-8.2) g/dL Albumin 3.3 L (3.5-5.0) g/dL Calcium panel 02/22/25 02/22/25 Range/Units 02:59 06:39 Calcium 9.0 9.0 (8.4-10.2) mg/dL Albumin 3.3 L (3.5-5.0) g/dL Pituitary panel 02/22/25 02/22/25 Range/Units 02:59 06:39 Sodium 140 142 (137-145) mmol/L Potassium 3.8 4.0 (3.5-5.1) mmol/L Chloride 96 L 98 (98-107) mmol/L Carbon Dioxide 39 H 40 H (22-30) mmol/L BUN 49 H 49 H (9-20) mg/dL Creatinine 4.10 H 3.84 H (0.66-1.25) mg/dL Glucose 97 97 (74-99) mg/dL Calcium 9.0 9.0 (8.4-10.2) mg/dL Adrenal panel 02/22/25 02/22/25 Range/Units 02:59 06:39 Sodium 140 142 (137-145) mmol/L Potassium 3.8 4.0 (3.5-5.1) mmol/L Chloride 96 L 98 (98-107) mmol/L Carbon Dioxide 39 H 40 H (22-30) mmol/L BUN 49 H 49 H (9-20) mg/dL Creatinine 4.10 H 3.84 H (0.66-1.25) mg/dL Glucose 97 97 (74-99) mg/dL Calcium 9.0 9.0 (8.4-10.2) mg/dL Total Bilirubin 0.8 (0.2-1.3) mg/dL AST 18 (17-59) U/L ALT 8 (4-49) U/L Alkaline Phosphatase 81 (38-126) U/L Total Protein 6.2 L (6.3-8.2) g/dL Albumin 3.3 L (3.5-5.0) g/dL
--- NOTE | 2025-02-22 13:42 | P.PN ---
Subjective HISTORY OF PRESENT ILLNESS: The patient is an 89-year-old male who was admitted to the hospital with congestive heart failure. Cardiology has been consulted for further management. He was also noted to be in renal failure. Dialysis has been recommended in the past, however the patient has declined. Recent echocardiogram shows preserved LV function with severe aortic stenosis and aortic insufficiency, with elevated RVSP. Patient interviewed and examined resting comfortably in bed. Heart rate is currently irregular as he is currently in bigeminy. He denies any current pain or difficulty breathing. 02/22/2025 Patient examined this morning at the bedside. Patient currently denies chest pain or pressure. He denies shortness of breath. Vital signs are stable. PHYSICAL EXAM: VITAL SIGNS: Reviewed. GENERAL: Well-developed in no acute distress. NECK: Supple. No JVD or thyromegaly LUNGS: Respirations even and unlabored. Lungs essentially clear to auscultation bilaterally. HEART: Regular rate and rhythm. S1 and S2 heard. Systolic murmur noted. EXTREMITIES: Normal range of motion. No clubbing or cyanosis. Peripheral pulses intact. No lower extremity edema ASSESSMENT: Acute on chronic heart failure with preserved EF Elevated troponin, secondary to poor renal clearance, no evidence of myocardial injury or ischemia End-stage renal disease, starting peritoneal dialysis Paroxysmal atrial fibrillation, on anticoagulation Aortic valve disease, severe aortic stenosis and insufficiency Pulmonary hypertension, RVSP 73.3 mmHg PLAN: Lyndsey has been placed on hold General surgery planning for PD catheter placement. No absolute contraindications for patient to proceed from a cardiac standpoint. Further recommendations pending patient course Nurse practitioner note has been reviewed by physician. Signing provider agrees with the documented findings, assessment, and plan of care documented by MEDIA INTERN as a scribe. Objective - Vital Signs Vital signs: Vital Signs Temp 98.3 F 02/22/25 09:03 Pulse 78 02/22/25 12:20 Resp 18 02/22/25 12:20 BP 163/74 02/22/25 12:20 Pulse Ox 100 02/22/25 12:20 FiO2 40 02/19/25 18:26 Intake & Output 02/21/25 02/22/25 02/22/25 18:59 06:59 18:59 Intake Total 200 64.833 Output Total 480 1700 Balance -480 -1500 64.833 Weight 93 kg Intake: Intake, IV Titration 200 64.833 Amount Furosemide 100 mg In 200 64.833 Sodium Chloride 0.9% 90 ml @ 10 MG/HR 10 mls/hr IV .Q10H [facility] Rx#: [id number] Output: Urine 480 1700 Other: Voiding Method Indwelling Catheter Indwelling Catheter # Bowel Movements 1 - Labs CBC & Chem 7: 02/22/25 02:59 02/22/25 06:39 Labs: Abnormal Lab Results - Last 24 Hours (Table) 02/22/25 02/22/25 02/22/25 Range/Units 02:59 02:59 03:03 RBC 3.53 L (4.40-5.60) 10*6/uL Hgb 8.1 L (13.0-17.0) g/dL Hct 26.7 L (39.6-50.0) % MCV 75.6 L (80.0-97.0) fL MCH 22.9 L (27.0-32.0) pg MCHC 30.3 L (32.0-37.0) g/dL Eosinophils # 0.36 H (0.04-0.35) 10*3/uL Chloride 96 L (98-107) mmol/L Carbon Dioxide 39 H (22-30) mmol/L BUN 49 H (9-20) mg/dL Creatinine 4.10 H (0.66-1.25) mg/dL Troponin I 0.088 H* (0.000-0.034) ng/mL Total Protein (6.3-8.2) g/dL Albumin (3.5-5.0) g/dL 02/22/25 Range/Units 06:39 RBC (4.40-5.60) 10*6/uL Hgb (13.0-17.0) g/dL Hct (39.6-50.0) % MCV (80.0-97.0) fL MCH (27.0-32.0) pg MCHC (32.0-37.0) g/dL Eosinophils # (0.04-0.35) 10*3/uL Chloride (98-107) mmol/L Carbon Dioxide 40 H (22-30) mmol/L BUN 49 H (9-20) mg/dL Creatinine 3.84 H (0.66-1.25) mg/dL Troponin I (0.000-0.034) ng/mL Total Protein 6.2 L (6.3-8.2) g/dL Albumin 3.3 L (3.5-5.0) g/dL
[2025-02-23 07:09] LABS: Basophils # (A) 0.04 10*3/uL (0.00-0.10); Basophils % (A) 0.5 %; Eosinophils # (A) 0.45 10*3/uL (0.04-0.35); Eosinophils % (A) 5.8 %; HCT 25.7 % (39.6-50.0); HGB 8.1 g/dL (13.0-17.0); Immature Platelet Fraction 1.6 % (1.1-6.1); Lymphocytes # (A) 1.55 10*3/uL (0.90-5.00); Lymphocytes % (A) 19.9 %; MCH 23.4 pg (27.0-32.0); MCHC 31.5 g/dL (32.0-37.0); MCV 74.3 fL (80.0-97.0); Monocytes # (A) 0.64 10*3/uL (0.20-1.00); Monocytes % (A) 8.2 %; Neutrophils # (A) 5.09 10*3/uL (1.80-7.70); Neutrophils % (A) 65.2 %; Platelet Count 167 10*3/uL (140-440); RBC 3.46 10*6/uL (4.40-5.60); RDW 19.9 % (11.5-14.5); WBC 7.80 10*3/uL (4.50-10.00)
[2025-02-23 07:21] LABS: ALT 7 U/L (4-49); AST 15 U/L (17-59); African American GFR (CKD) 14 (>60 ml/min/1.73 sqM); Albumin 3.0 g/dL (3.5-5.0); Alkaline Phosphatase 75 U/L (38-126); Anion Gap 3 mmol/L; Blood Urea Nitrogen 48 mg/dL (9-20); Calcium 8.8 mg/dL (8.4-10.2); Chloride 96 mmol/L (98-107); Glucose 92 mg/dL (74-99); Non-African American GFR(CKD) 12 (>60 ml/min/1.73 sqM); Potassium 4.4 mmol/L (3.5-5.1); Sodium 139 mmol/L (137-145); Total Protein 5.7 g/dL (6.3-8.2)
[2025-02-23 07:37] LABS: Carbon Dioxide 37 mmol/L (22-30)
[2025-02-23] MEDS ORDERED: HEPARIN SODIUM 1,000 UN/ML (10ML VL) IV PRN (11:10)
[2025-02-23 11:54] LABS: Basophils # (A) 0.05 10*3/uL (0.00-0.10); Basophils % (A) 0.7 %; Eosinophils # (A) 0.46 10*3/uL (0.04-0.35); Eosinophils % (A) 6.2 %; HCT 25.7 % (39.6-50.0); HGB 8.1 g/dL (13.0-17.0); Immature Platelet Fraction 1.6 % (1.1-6.1); Lymphocytes # (A) 1.38 10*3/uL (0.90-5.00); Lymphocytes % (A) 18.7 %; MCH 23.8 pg (27.0-32.0); MCHC 31.5 g/dL (32.0-37.0); MCV 75.4 fL (80.0-97.0); Monocytes # (A) 0.64 10*3/uL (0.20-1.00); Monocytes % (A) 8.7 %; Neutrophils # (A) 4.84 10*3/uL (1.80-7.70); Neutrophils % (A) 65.4 %; Platelet Count 163 10*3/uL (140-440); RBC 3.41 10*6/uL (4.40-5.60); RDW 19.9 % (11.5-14.5); WBC 7.39 10*3/uL (4.50-10.00)
[2025-02-23 12:08] LABS: INR 0.9 (<1.2); Partial Thromboplastin Time 24.0 sec (22.0-30.0); Prothrombin Time 10.6 sec (10.0-12.5)
[2025-02-23] MEDS: HEPARIN SOD,PORK IN 0.45% NACL 25,000 UNIT in 0.45% NACL 1 250ML.BAG IV SCH (12:22)
[2025-02-23] MEDS: HEPARIN SODIUM 1,000 UN/ML (10ML VL) IV ONE (12:22)
--- NOTE | 2025-02-23 12:48 | P.PN ---
Subjective Patient is seen for follow-up of chronic kidney disease stage V with renal function at baseline. He was admitted with shortness of breath and volume overload. Currently maintained on Lasix drip. 24-hour urine output at 1.4 L. Shortness of breath has improved. Patient has been seen by surgery and plan is to of the PD catheter placed prior to discharge Currently with indwelling Wang catheter. Tolerating oral intake Objective - Vital Signs Vital signs: Vital Signs Temp 98.1 F 02/23/25 08:13 Pulse 113 H 02/23/25 11:58 Resp 18 02/23/25 11:58 BP 124/75 02/23/25 11:58 Pulse Ox 97 02/23/25 11:58 FiO2 40 02/19/25 18:26 Intake & Output 02/22/25 02/23/25 02/23/25 18:59 06:59 18:59 Intake Total 64.833 298 118 Output Total 1110 350 Balance -1045.167 -52 118 Weight 90.4 kg Intake: IV 120 Furosemide 100 mg In 120 Sodium Chloride 0.9% 90 ml @ 10 MG/HR 10 mls/hr IV .Q10H [facility] Rx#: [id number] Intake, IV Titration 64.833 178 Amount Furosemide 100 mg In 64.833 178 Sodium Chloride 0.9% 90 ml @ 10 MG/HR 10 mls/hr IV .Q10H [facility] Rx#: [id number] Oral 118 Output: Urine 1110 350 Other: Voiding Method Indwelling Catheter Indwelling Catheter Indwelling Catheter # Bowel Movements 1 - Exam Patient is awake, comfortable Alert oriented x 3 Examination of the heart S1 and S2 Examination of the lungs bilateral breath sounds are heard Abdomen is soft, mild tenderness lower abdomen Examination of lower extremities shows edema 1+ and chronic skin changes 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0 L (3.5-5.0) g/dL Assessment and Plan Assessment: 1. 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 Renal function at baseline 2. Acute hypoxic respiratory failure secondary to CHF and volume overload, improving 3. Volume overload. 4. Hypokalemia from diuresis. 5. Hypertension with chronic kidney disease. 6. Chronic kidney disease mineral bone disease. 7. Anemia of chronic kidney disease. Plan: Continue with Lasix drip continue Zaroxolyn Add Aranesp Discussed with patient regarding plans for PD catheter placement this admission prior to discharge No urgent need for dialysis as long as patient has good urine output and volume status has improved.
--- NOTE | 2025-02-23 13:34 | P.PN ---
Progress Note - Text Progress Note Date: 02/23/25 Patient seen and examined. No acute events overnight. Patient is on Lasix Drip PHYSICAL EXAM: VITAL SIGNS: Reviewed GENERAL: Well-developed in no acute distress. HEENT: No sclera icterus. Extraocular movements grossly intact. Moist buccal mucosa. Head is atraumatic, normocephalic. No nasal drainage. ABDOMEN: Soft. Nondistended. Mild tenderness lower abdomen NEUROLOGIC: Alert and oriented. Cranial nerves II through XII grossly intact. ASSESSMENT: 1. Chronic kidney disease 2. CHF and fluid overload PLAN: - Continue treatment of fluid overload and CHF - Hold Eliquis - Will plan for PD catheter placement during this admission and coordinate with Nephrology - Cardiology has cleared patient to proceed with surgery Ammon Canales DO [facility] [phone]
--- NOTE | 2025-02-23 16:25 | P.PN ---
Subjective Progress Note Date: 02/23/25 Jayce Feldman is a 89-year-old male patient who presented with complaints of increased shortness of breath. Patient has a past medical history of end-stage renal disease and recently has agreed to initiate peritoneal dialysis. Patient reports he has plans for appointment on Friday to receive peritoneal dialysis catheter. Patient also has past medical history of atrial fibrillation and CHF. Chest x-ray completed showing acute bilateral cardiopulmonary process most likely CHF. Lab work completed showing white blood cell 6.71, hemoglobin 8.2, creatinine 3.9, bun 54, potassium 3.2. Troponin 0.075, 0.086 and 0.097. BNP elevated at 12,600. Patient did receive IV Lasix in ER. At this time patient will be admitted cardiology and nephrology services have been consulted. 2D echo has been ordered Home meds resumed. Patient complaints of shortness of breath. Patient denies chest pain. Patient denies nausea vomiting or diarrhea. Patient denies any urinary burning or frequency. Current vital signs temp 97, heart rate 76, respiratory rate 22, blood pressure 153/73 with pulse ox of 95% on 4 L On 02/21/2025 patient was seen and examined in the ICU he is alert and oriented x 3 in no apparent distress he is complaining of shortness of breath otherwise he denies any complaints at this time there is no fever or chills no headache or dizziness no chest pain no cough no nausea or vomiting no abdominal pain no diarrhea and no urinary symptoms. Patient is followed by multiple specialist i ncluding nephrology, cardiology consultation for critical care was initiated. Prognosis is guarded On 02/22/2025 patient is alert and oriented x 3. Patient remains on Lasix drip. Tentative plans for peritoneal dialysis catheter placement. Current vital signs temp 98.3, heart rate 78, respiratory rate 16, blood pressure 144/55 with pulse ox of 99% on 2 L. Patient having good urine output at this time. Patient denies chest pain or shortness of breath. Patient denies nausea vomiting or diarrhea. Patient denies any urinary burning or frequency On 02/23/2025 patient was seen and examined on the medical floor he is alert and oriented x 3 in no apparent distress he is still complaining of shortness of breath with any activity otherwise he denies any complaints there is no fever or chills no headache or dizziness no chest pain no nausea or vomiting no abdominal pain no diarrhea and no urinary symptoms. Plan is for peritoneal dialysis catheter placement during this admission, surgery, cardiology and nephrology are following Objective - Vital Signs Vital signs: Vital Signs Temp 97.9 F 02/23/25 03:26 Pulse 114 H 02/23/25 03:26 Resp 20 02/23/25 03:26 BP 119/72 02/23/25 03:26 Pulse Ox 98 02/23/25 03:26 FiO2 40 02/19/25 18:26 Intake & Output 02/22/25 02/23/25 02/23/25 18:59 06:59 18:59 Intake Total 64.833 198 Output Total 1110 350 Balance -1045.167 -152 Weight 90.4 kg Intake: IV 120 Furosemide 100 mg In 120 Sodium Chloride 0.9% 90 ml @ 10 MG/HR 10 mls/hr IV .Q10H TJ Rx#: [id number] Intake, IV Titration 64.833 78 Amount Furosemide 100 mg In 64.833 78 Sodium Chloride 0.9% 90 ml @ 10 MG/HR 10 mls/hr IV .Q10H TJ Rx#: [id number] Output: Urine 1110 350 Other: Voiding Method Indwelling Catheter Indwelling Catheter # Bowel Movements 1 - Exam In general patient is alert and oriented x 3 in no apparent distress Head normocephalic and atraumatic Neck supple no JVD no goiter Lungs exam reveals a scattered crackles in both lung goodman no wheezing Heart exam reveals irregular heart sounds S1-S2 no gallops no murmurs Abdomen is soft nontender nondistended positive bowel sounds no hepatosplenomegaly Extremities no edema Neuro alert and orientated to 3 - Labs CBC & Chem 7: 02/23/25 11:23 02/23/25 06:24 Labs: Abnormal Lab Results - Last 24 Hours (Table) 02/22/25 02/23/25 Range/Units 06:39 06:24 RBC 3.46 L (4.40-5.60) 10*6/uL Hgb 8.1 L (13.0-17.0) g/dL Hct 25.7 L (39.6-50.0) % MCV 74.3 L (80.0-97.0) fL MCH 23.4 L (27.0-32.0) pg MCHC 31.5 L (32.0-37.0) g/dL Eosinophils # 0.45 H (0.04-0.35) 10*3/uL Carbon Dioxide 40 H (22-30) mmol/L BUN 49 H (9-20) mg/dL Creatinine 3.84 H (0.66-1.25) mg/dL Total Protein 6.2 L (6.3-8.2) g/dL Albumin 3.3 L (3.5-5.0) g/dL Assessment and Plan Assessment: Shortness of breath secondary to acute CHF exacerbation End-stage renal disease. Patient is now agreeable to peritoneal dialysis schedule peritoneal dialysis catheter placement for this Friday Elevated troponins Acute on chronic CHF exacerbation History of essential hypertension History of anemia of chronic kidney disease History of atrial fibrillation maintained on Eliquis History of BPH History of gout History of hypothyroidism DVT prophylaxis Eliquis. GI prophylax Protonix Cardiology and nephrology services consulted Patient started on Lasix drip Tentative plans for peritoneal dialysis catheter placement Repeat labs ordered
[2025-02-23] MEDS: DARBEPOETIN ALFA 60 MCG/0.3 ML SYRINGE SQ SCH (19:08)
--- NOTE | 2025-02-23 20:56 | P.PN ---
Subjective Progress Note Date: 02/23/25 Patient about the same patient presented emergency department back in 02/19/2025 with chief complaint of increased work of breathing and lower extremity edema. He has past medical history significant for atrial fibrillation, heart failure, chronic kidney disease and is being considered for peritoneal dialysis catheter. Also, has history of COPD, remote history of tobacco use over 35 years ago, GERD/reflux, hypertension, hypothyroidism, among other things. Hyperlipidemia. Chest x-ray done on admission showing increased lung markings with cardiomegaly and pulmonary vascular markings. Severe enlarged pulmonary artery. Possible small left pleural effusion. NT proBNP was significant elevated at 12,600. Also, patient is known to have end-stage renal disease, and has refused hemodialysis in the past. He is being considered for peritoneal dialysis catheter tomorrow. Recent lab work including a CBC with a WBC count of 6.9, hemoglobin 7.7, platelets 158. BMP with a sodium 142, potassium 3.7, chloride 96, serum bicarb 39, BUN 52, creatinine 3.63, glucose 93. Serial troponins also marginally elevated at 0.075, 0.086, and 0.097. Transthoracic echocardiogram done this admission estimating a left ventricular ejection fraction of 65 to 70% with severe aortic valve stenosis and possible moderate aortic regurgitation. Moderate mitral insufficiency and severe pulmonary hypertension. RVSP 73.3 mmHg. Pulmonary consultation placed yesterday for increased work of breathing. Lasix drip is infusing at 10 mg/h. He does have an indwelling urinary catheter. He is making excellent urine output. His fluid balance is -1.5 L so far over the last 24 hours. He is being seen on the cardiac stepdown unit. States his breathing is "200% improved". The swelling in his legs is also improved. Denies any chest pain. Denies any lightheadedness or syncopal events. Denies any infectious symptoms. Endorses remote history of smoking, over 35 years ago. Denies any history of COPD or asthma. Current vital signs: Temperature 97.9 F, heart rate 94 bpm, blood pressure 152/73 mmHg, nontachypneic, SpO2 recorded 97% on 2 L/min nasal cannula. On 02/23/2025, the patient is being seen for a follow-up. The patient is doing well. Continues to produce adequate amount of urine output while being on Lasix and the patient is negative fluid balance. The patient was treated with Lasix drip and is still continued at 10 mg an hour and the patient is also on Zaroxolyn 5 mg p.o. daily. The patient was supposed to have the PD catheter inserted and this will be done tomorrow. Oxygenation remained stable on 2 L of oxygen by nasal cannula. Afebrile. The white cell count is 7.3 with a hemoglobin 8.1 and a platelet count of 163. Normal coagulation profile. BUN is 48 with a creatinine of 4.09. Potassium level is at 4.4. Objective - Vital Signs Vital signs: Vital Signs Temp 98.1 F 02/23/25 08:13 Pulse 113 H 02/23/25 11:58 Resp 18 02/23/25 11:58 BP 124/75 02/23/25 11:58 Pulse Ox 97 02/23/25 11:58 FiO2 40 02/19/25 18:26 Intake & Output 02/22/25 02/23/25 02/23/25 18:59 06:59 18:59 Intake Total 64.833 298 236 Output Total 1110 350 Balance -1045.167 -52 236 Weight 90.4 kg Intake: IV 120 Furosemide 100 mg In 120 Sodium Chloride 0.9% 90 ml @ 10 MG/HR 10 mls/hr IV .Q10H TJ Rx#: [id number] Intake, IV Titration 64.833 178 Amount Furosemide 100 mg In 64.833 178 Sodium Chloride 0.9% 90 ml @ 10 MG/HR 10 mls/hr IV .Q10H TJ Rx#: [id number] Oral 236 Output: Urine 1110 350 Other: Voiding Method Indwelling Catheter Indwelling Catheter Indwelling Catheter # Bowel Movements 1 - Exam GENERAL EXAM: Alert, 89-year-old -[place] male, on 3 L/min nasal cannula, comfortable in no apparent distress. HEAD: Normocephalic and atraumatic EYES: Normal reaction of pupils, equal size. Corneal arcus. Anicteric. NOSE: Clear with pink turbinates. THROAT: No erythema or exudates. NECK: No masses, no JVD. CHEST: No chest wall deformity. LUNGS: Equal air entry with minimal bibasilar inspiratory crackles. No conver sational dyspnea or accessory muscle use.. CVS: S1 and S2 normal, harsh grade 3 systolic murmur, irregular rhythm. No extra heart sounds ABDOMEN: No hepatosplenomegaly, active bowel sounds, no guarding or rigidity. SPINE: No scoliosis or deformity SKIN: No rashes CENTRAL NERVOUS SYSTEM: No focal deficits, tone is normal in all 4 extremities. EXTREMITIES: There is no peripheral edema, clubbing, or cyanosis. Peripheral pulses are intact. - Labs CBC & Chem 7: 02/23/25 11:23 02/23/25 06:24 Labs: Abnormal Lab Results - Last 24 Hours (Table) 02/23/25 02/23/25 02/23/25 Range/Units 06:24 06:24 11:23 RBC 3.46 L 3.41 L (4.40-5.60) 10*6/uL Hgb 8.1 L 8.1 L (13.0-17.0) g/dL Hct 25.7 L 25.7 L (39.6-50.0) % MCV 74.3 L 75.4 L (80.0-97.0) fL MCH 23.4 L 23.8 L (27.0-32.0) pg MCHC 31.5 L 31.5 L (32.0-37.0) g/dL Eosinophils # 0.45 H 0.46 H (0.04-0.35) 10*3/uL Chloride 96 L (98-107) mmol/L Carbon Dioxide 37 H (22-30) mmol/L BUN 48 H (9-20) mg/dL Creatinine 4.09 H (0.66-1.25) mg/dL AST 15 L (17-59) U/L Total Protein 5.7 L (6.3-8.2) g/dL Albumin 3.0 L (3.5-5.0) g/dL Assessment and Plan Assessment: Acute hypoxemic respiratory failure, currently on 3 L/min nasal cannula, secondary to acute diastolic congestive heart failure and valvular heart disease. Chest x-ray remarkable for cardiomegaly, pulmonary vascular congestion. NT proBNP elevated at 12,600. Currently on a Lasix infusion at 10 mg/h and the patient is also on Zaroxolyn the patient is producing excellent amount of urine output. End-stage renal disease, being considered for peritoneal dialysis catheter, will inserted peritoneal catheter today with subsequent PD dialysis, GFR is at 14 Valvular heart disease, echocardiogram done this admission estimating left ventricular ejection fraction of 65 to 70% along with severe aortic valve stenosis and possible moderate aortic regurgitation. Moderate mitral insuff iciency and severe pulmonary hypertension, WHO group 2. Anemia of chronic disease Paroxysmal atrial fibrillation, chronically anticoagulated on Eliquis, currently on hold anticipating a PD catheter insertion Mild troponin leak, possibly secondary to demand ischemia and poor renal clearance Hypertension History of hyperlipidemia History of coronary artery disease with previous stents to the RCA and LAD Hypothyroidism Gastroesophageal reflux disease Remote history of tobacco use over 35 years ago Plan: Patient's medications, labs, chest x-ray reviewed Currently on 2-3 L/min nasal cannula, wean as tolerated Continues on Lasix infusion at 10 mg/h. Patient is also on Zaroxolyn 5 mg p.o. daily. Fluid balance is negative Patient has valvular heart disease with severe aortic stenosis, and moderate aortic regurgitation and mitral insufficiency and severe pulmonary hypertension. Cardiology also consulted Eliquis has been resumed Being considered for possible peritoneal dialysis catheter during this hospitalization, awaiting a PD catheter insertion Continue Norvasc 5 mg p.o. daily and hydralazine 25 mg p.o. 3 times daily and Toprol-XL 25 mg p.o. daily .
[2025-02-24 06:24] LABS: Basophils # (A) 0.04 10*3/uL (0.00-0.10); Basophils % (A) 0.6 %; Eosinophils # (A) 0.46 10*3/uL (0.04-0.35); Eosinophils % (A) 6.3 %; HCT 24.1 % (39.6-50.0); HGB 7.8 g/dL (13.0-17.0); Immature Platelet Fraction 1.5 % (1.1-6.1); Lymphocytes # (A) 1.58 10*3/uL (0.90-5.00); Lymphocytes % (A) 21.8 %; MCH 23.9 pg (27.0-32.0); MCHC 32.4 g/dL (32.0-37.0); MCV 73.9 fL (80.0-97.0); Monocytes # (A) 0.58 10*3/uL (0.20-1.00); Monocytes % (A) 8.0 %; Neutrophils # (A) 4.57 10*3/uL (1.80-7.70); Neutrophils % (A) 63.0 %; Platelet Count 161 10*3/uL (140-440); RBC 3.26 10*6/uL (4.40-5.60); RDW 19.3 % (11.5-14.5); WBC 7.25 10*3/uL (4.50-10.00)
[2025-02-24 06:33] LABS: INR 1.0 (<1.2); Partial Thromboplastin Time 40.6 sec (22.0-30.0); Prothrombin Time 10.7 sec (10.0-12.5)
--- NOTE | 2025-02-24 12:46 | P.PN ---
Subjective Patient is seen for follow-up of chronic kidney disease stage V with renal function at baseline. He was admitted with shortness of breath and volume overload. Currently maintained on Lasix drip. 24-hour urine output at 1.7 L. Shortness of breath has improved. Scheduled for PD catheter placement tomorrow Currently with indwelling Wang catheter. Tolerating oral intake Objective - Vital Signs Vital signs: Vital Signs Temp 97.6 F 02/24/25 09:21 Pulse 61 02/24/25 11:19 Resp 15 02/24/25 11:19 BP 104/50 02/24/25 11:19 Pulse Ox 98 02/24/25 11:19 FiO2 40 02/19/25 18:26 Intake & Output 02/23/25 02/24/25 02/24/25 18:59 06:59 18:59 Intake Total 445.667 340 340 Output Total 1700 Balance 445.667 -1360 340 Weight 88.9 kg Intake: IV 50 Furosemide 100 mg In 50 Sodium Chloride 0.9% 90 ml @ 10 MG/HR 10 mls/hr IV .Q10H TJ Rx#: [id number] Intake, IV Titration 91.667 50 100 Amount Furosemide 100 mg In 91.667 100 Sodium Chloride 0.9% 90 ml @ 10 MG/HR 10 mls/hr IV .Q10H TJ Rx#: [id number] Heparin Sod,Pork in 0.45% 50 NaCl 25,000 unit In 0.45 % NaCl 1 250ml.bag @ 11. 06 UNITS/KG/HR 9.998 mls/ hr IV .Q24H TJ Rx#: [id number] Oral 354 240 240 Output: Urine 1700 Other: Voiding Method Indwelling Catheter Indwelling Catheter Indwelling Catheter # Voids 1 - Exam Patient is awake, comfortable Alert oriented x 3 Examination of the heart S1 and S2 Examination of the lungs bilateral breath sounds are heard Abdomen is soft, mild tenderness lower abdomen Examination of lower extremities shows edema 1+ and chronic skin changes [employer] exam grossly intact - Labs CBC & Chem 7: 02/24/25 05:54 02/23/25 06:24 Labs: Abnormal Lab Results - Last 24 Hours (Table) 02/23/25 02/24/25 02/24/25 Range/Units 18:53 05:49 05:54 RBC 3.26 L (4.40-5.60) 10*6/uL Hgb 7.8 L (13.0-17.0) g/dL Hct 24.1 L (39.6-50.0) % MCV 73.9 L (80.0-97.0) fL MCH 23.9 L (27.0-32.0) pg Eosinophils # 0.46 H (0.04-0.35) 10*3/uL APTT 41.3 H 40.6 H (22.0-30.0) sec Assessment and Plan Assessment: 1. 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 Renal function at baseline 2. Acute hypoxic respiratory failure secondary to CHF and volume overload, improving 3. Volume overload. 4. Hypokalemia from diuresis. 5. Hypertension with chronic kidney disease. 6. Chronic kidney disease mineral bone disease. 7. Anemia of chronic kidney disease. Plan: Continue with Lasix drip continue Zaroxolyn Add Aranesp PD catheter placement tomorrow No urgent need for dialysis as long as patient has good urine output and volume status continues to improve.
[2025-02-24] MEDS: LACTATED RINGERS 1,000 ML IV SCH (13:13)
[2025-02-24 14:19] VITALS: BMI 30.7
--- NOTE | 2025-02-24 14:21 | P.PN ---
Subjective Progress Note Date: 02/24/25 SURGICAL PROGRESS NOTE CHIEF COMPLAINT: Shortness of breath HISTORY OF PRESENT ILLNESS: Patient remains on a Lasix drip and Zaroxolyn. He is sitting up in bed comfortably. His breathing appears better today. He is currently on IV heparin due to history of A-fib and not being on the Eliquis. Patient 2 L of oxygen. Afebrile. WBC 7.25 Hgb 7.8 INR 1.0 PHYSICAL EXAM: VITAL SIGNS: Reviewed. GENERAL: Well-developed in no acute distress. HEENT: No sclera icterus. Extraocular movements grossly intact. Moist buccal mucosa. Head is atraumatic, normocephalic. ABDOMEN: Soft. Nondistended. Nontender. NEUROLOGIC: Alert and oriented. Cranial nerves II through XII grossly intact. ASSESSMENT: 1. Chronic kidney disease 2. CHF and fluid overload PLAN: - Patient scheduled for peritoneal dialysis catheter tomorrow with Dr. Sanchez - Hold IV heparin starting at 7 AM tomorrow - N.p.o. after midnight Physician Provider Service Representative note has been reviewed by physician. Signing provider agrees with the documented findings, assessment, and plan of care. Attestation Patient seen and examined at bedside. Case discussed with nephrology, will plan for peritoneal dialysis catheter placement tomorrow. Hold IV heparin in the morning. N.p.o. after midnight. Ailyn Maki, Objective - Vital Signs Vital signs: Vital Signs Temp 97.6 F 02/24/25 09:21 Pulse 79 02/24/25 13:01 Resp 17 02/24/25 13:01 BP 114/64 02/24/25 13:01 Pulse Ox 95 02/24/25 13:01 FiO2 40 02/19/25 18:26 Intake & Output 02/23/25 02/24/25 02/24/25 18:59 06:59 18:59 Intake Total 445.667 340 588.617 Output Total 1700 800 Balance 445.667 -1360 -211.383 Weight 88.9 kg Intake: IV 50 Furosemide 100 mg In 50 Sodium Chloride 0.9% 90 ml @ 10 MG/HR 10 mls/hr IV .Q10H ON LICENSE OF [facility] Rx#: [id number] Intake, IV Titration 91.667 50 348.617 Amount Furosemide 100 mg In 91.667 100 Sodium Chloride 0.9% 90 ml @ 10 MG/HR 10 mls/hr IV .Q10H ON LICENSE OF [facility] Rx#: [id number] Heparin Sod,Pork in 0.45% 50 248.617 NaCl 25,000 unit In 0.45 % NaCl 1 250ml.bag @ 11. 06 UNITS/KG/HR 9.998 mls/ hr IV .Q24H ON LICENSE OF [facility] Rx#: [id number] Oral 354 240 240 Output: Urine 1700 800 Other: Voiding Method Indwelling Catheter Indwelling Catheter Indwelling Catheter # Voids 1 - Labs CBC & Chem 7: 02/25/25 08:03 02/25/25 08:03 Labs: Abnormal Lab Results - Last 24 Hours (Table) 02/23/25 02/24/25 02/24/25 Range/Units 18:53 05:49 05:54 RBC 3.26 L (4.40-5.60) 10*6/uL Hgb 7.8 L (13.0-17.0) g/dL Hct 24.1 L (39.6-50.0) % MCV 73.9 L (80.0-97.0) fL MCH 23.9 L (27.0-32.0) pg Eosinophils # 0.46 H (0.04-0.35) 10*3/uL APTT 41.3 H 40.6 H (22.0-30.0) sec
[2025-02-24] MEDS: CALCIUM CARBONATE 500 MG CHEWABLE PO PRN (16:53)
--- NOTE | 2025-02-24 17:38 | P.PN ---
Subjective Progress Note Date: 02/24/25 Jayce Feldman is a 89-year-old male patient who presented with complaints of increased shortness of breath. Patient has a past medical history of end-stage renal disease and recently has agreed to initiate peritoneal dialysis. Patient reports he has plans for appointment on Friday to receive peritoneal dialysis catheter. Patient also has past medical history of atrial fibrillation and CHF. Chest x-ray completed showing acute bilateral cardiopulmonary process most likely CHF. Lab work completed showing white blood cell 6.71, hemoglobin 8.2, creatinine 3.9, bun 54, potassium 3.2. Troponin 0.075, 0.086 and 0.097. BNP elevated at 12,600. Patient did receive IV Lasix in ER. At this time patient will be admitted cardiology and nephrology services have been consulted. 2D echo has been ordered Home meds resumed. Patient complaints of shortness of breath. Patient denies chest pain. Patient denies nausea vomiting or diarrhea. Patient denies any urinary burning or frequency. Current vital signs temp 97, heart rate 76, respiratory rate 22, blood pressure 153/73 with pulse ox of 95% on 4 L On 02/21/2025 patient was seen and examined in the ICU he is alert and oriented x 3 in no apparent distress he is complaining of shortness of breath otherwise he denies any complaints at this time there is no fever or chills no headache or dizziness no chest pain no cough no nausea or vomiting no abdominal pain no diarrhea and no urinary symptoms. Patient is followed by multiple specialist i ncluding nephrology, cardiology consultation for critical care was initiated. Prognosis is guarded On 02/22/2025 patient is alert and oriented x 3. Patient remains on Lasix drip. Tentative plans for peritoneal dialysis catheter placement. Current vital signs temp 98.3, heart rate 78, respiratory rate 16, blood pressure 144/55 with pulse ox of 99% on 2 L. Patient having good urine output at this time. Patient denies chest pain or shortness of breath. Patient denies nausea vomiting or diarrhea. Patient denies any urinary burning or frequency On 02/23/2025 patient was seen and examined on the medical floor he is alert and oriented x 3 in no apparent distress he is still complaining of shortness of breath with any activity otherwise he denies any complaints there is no fever or chills no headache or dizziness no chest pain no nausea or vomiting no abdominal pain no diarrhea and no urinary symptoms. Plan is for peritoneal dialysis catheter placement during this admission, surgery, cardiology and nephrology are following On 02/24/2025 patient was seen and examined on the medical floor he is alert and oriented x 3 in no apparent distress there is no fever or chills no headache or dizziness no chest pain no shortness of breath no cough no nausea or vomiting no abdominal pain no diarrhea no urinary symptoms. Nephrology are following plan is to proceed with peritoneal dialysis Objective - Vital Signs Vital signs: Vital Signs Temp 97.6 F 02/24/25 09:21 Pulse 86 02/24/25 15:47 Resp 17 02/24/25 15:47 BP 111/50 02/24/25 15:47 Pulse Ox 95 02/24/25 15:47 FiO2 40 02/19/25 18:26 Intake & Output 02/23/25 02/24/25 02/24/25 18:59 06:59 18:59 Intake Total 445.667 340 588.617 Output Total 1700 800 Balance 445.667 -1360 -211.383 Weight 88.9 kg 88.9 kg Intake: IV 50 Furosemide 100 mg In 50 Sodium Chloride 0.9% 90 ml @ 10 MG/HR 10 mls/hr IV .Q10H TJ Rx#: [id number] Intake, IV Titration 91.667 50 348.617 Amount Furosemide 100 mg In 91.667 100 Sodium Chloride 0.9% 90 ml @ 10 MG/HR 10 mls/hr IV .Q10H TJ Rx#: [id number] Heparin Sod,Pork in 0.45% 50 248.617 NaCl 25,000 unit In 0.45 % NaCl 1 250ml.bag @ 11. 06 UNITS/KG/HR 9.998 mls/ hr IV .Q24H TJ Rx#: [id number] Oral 354 240 240 Output: Urine 1700 800 Other: Voiding Method Indwelling Catheter Indwelling Catheter Indwelling Catheter # Voids 1 # Bowel Movements 0 - Exam In general patient is alert and oriented x 3 in no apparent distress Head normocephalic and atraumatic Neck supple no JVD no goiter Lungs exam reveals a scattered crackles in both lung goodman no wheezing Heart exam reveals irregular heart sounds S1-S2 no gallops no murmurs Abdomen is soft nontender nondistended positive bowel sounds no hepatosplenomegaly Extremities no edema Neuro alert and orientated to 3 - Labs CBC & Chem 7: 02/24/25 05:54 02/23/25 06:24 Labs: Abnormal Lab Results - Last 24 Hours (Table) 02/23/25 02/24/25 02/24/25 Range/Units 18:53 05:49 05:54 RBC 3.26 L (4.40-5.60) 10*6/uL Hgb 7.8 L (13.0-17.0) g/dL Hct 24.1 L (39.6-50.0) % MCV 73.9 L (80.0-97.0) fL MCH 23.9 L (27.0-32.0) pg Eosinophils # 0.46 H (0.04-0.35) 10*3/uL APTT 41.3 H 40.6 H (22.0-30.0) sec Assessment and Plan Assessment: Shortness of breath secondary to acute CHF exacerbation End-stage renal disease. Patient is now agreeable to peritoneal dialysis schedule peritoneal dialysis catheter placement for this Friday Elevated troponins Acute on chronic CHF exacerbation History of essential hypertension History of anemia of chronic kidney disease History of atrial fibrillation maintained on Eliquis History of BPH History of gout History of hypothyroidism DVT prophylaxis Eliquis. GI prophylax Protonix Cardiology and nephrology services consulted Patient started on Lasix drip Tentative plans for peritoneal dialysis catheter placement Repeat labs ordered
--- NOTE | 2025-02-24 21:49 | P.PN ---
Subjective Progress Note Date: 02/24/25 Patient about the same patient presented emergency department back in 02/19/2025 with chief complaint of increased work of breathing and lower extremity edema. He has past medical history significant for atrial fibrillation, heart failure, chronic kidney disease and is being considered for peritoneal dialysis catheter. Also, has history of COPD, remote history of tobacco use over 35 years ago, GERD/reflux, hypertension, hypothyroidism, among other things. Hyperlipidemia. Chest x-ray done on admission showing increased lung markings with cardiomegaly and pulmonary vascular markings. Severe enlarged pulmonary artery. Possible small left pleural effusion. NT proBNP was significant elevated at 12,600. Also, patient is known to have end-stage renal disease, and has refused hemodialysis in the past. He is being considered for peritoneal dialysis catheter tomorrow. Recent lab work including a CBC with a WBC count of 6.9, hemoglobin 7.7, platelets 158. BMP with a sodium 142, potassium 3.7, chloride 96, serum bicarb 39, BUN 52, creatinine 3.63, glucose 93. Serial troponins also marginally elevated at 0.075, 0.086, and 0.097. Transthoracic echocardiogram done this admission estimating a left ventricular ejection fraction of 65 to 70% with severe aortic valve stenosis and possible moderate aortic regurgitation. Moderate mitral insufficiency and severe pulmonary hypertension. RVSP 73.3 mmHg. Pulmonary consultation placed yesterday for increased work of breathing. Lasix drip is infusing at 10 mg/h. He does have an indwelling urinary catheter. He is making excellent urine output. His fluid balance is -1.5 L so far over the last 24 hours. He is being seen on the cardiac stepdown unit. States his breathing is "200% improved". The swelling in his legs is also improved. Denies any chest pain. Denies any lightheadedness or syncopal events. Denies any infectious symptoms. Endorses remote history of smoking, over 35 years ago. Denies any history of COPD or asthma. Current vital signs: Temperature 97.9 F, heart rate 94 bpm, blood pressure 152/73 mmHg, nontachypneic, SpO2 recorded 97% on 2 L/min nasal cannula. On 02/23/2025, the patient is being seen for a follow-up. The patient is doing well. Continues to produce adequate amount of urine output while being on Lasix and the patient is negative fluid balance. The patient was treated with Lasix drip and is still continued at 10 mg an hour and the patient is also on Zaroxolyn 5 mg p.o. daily. The patient was supposed to have the PD catheter inserted and this will be done tomorrow. Oxygenation remained stable on 2 L of oxygen by nasal cannula. Afebrile. The white cell count is 7.3 with a hemoglobin 8.1 and a platelet count of 163. Normal coagulation profile. BUN is 48 with a creatinine of 4.09. Potassium level is at 4.4. 02/24/2025, the patient is awaiting a PD catheter insertion. Still on Lasix drip and Zaroxolyn. No new complaints. Anticoagulation is on hold and the patient is currently on IV heparin. Hemoglobin is at 7.8. White cell count 7.2. No electrolytes from today. No other significant events and the patient has no new complaints. He does have some chronic reflux and occasional dysphagia that he brought up on today's evaluation. This can be evaluated at a later stage. No chest pain. No nausea or vomiting. The patient is currently on 2 L of oxygen by nasal cannula with a pulse ox of 97%. Objective - Vital Signs Vital signs: Vital Signs Temp 97.6 F 02/24/25 09:21 Pulse 61 02/24/25 11:19 Resp 15 02/24/25 11:19 BP 104/50 02/24/25 11:19 Pulse Ox 98 02/24/25 11:19 FiO2 40 02/19/25 18:26 Intake & Output 02/23/25 02/24/25 02/24/25 18:59 06:59 18:59 Intake Total 445.667 340 340 Output Total 1700 Balance 445.667 -1360 340 Weight 88.9 kg Intake: IV 50 Furosemide 100 mg In 50 Sodium Chloride 0.9% 90 ml @ 10 MG/HR 10 mls/hr IV .Q10H [facility] Rx#: [id number] Intake, IV Titration 91.667 50 100 Amount Furosemide 100 mg In 91.667 100 Sodium Chloride 0.9% 90 ml @ 10 MG/HR 10 mls/hr IV .Q10H [facility] Rx#: [id number] Heparin Sod,Pork in 0.45% 50 NaCl 25,000 unit In 0.45 % NaCl 1 250ml.bag @ 11. 06 UNITS/KG/HR 9.998 mls/ hr IV .Q24H [facility] Rx#: [id number] Oral 354 240 240 Output: Urine 1700 Other: Voiding Method Indwelling Catheter Indwelling Catheter Indwelling Catheter # Voids 1 - Exam GENERAL EXAM: Alert, 89-year-old -[place] male, on 2 L/min nasal cannula, comfortable in no apparent distress. HEAD: Normocephalic and atraumatic EYES: Normal reaction of pupils, equal size. Corneal arcus. Anicteric. NOSE: Clear with pink turbinates. THROAT: No erythema or exudates. NECK: No masses, no JVD. CHEST: No chest wall deformity. LUNGS: Equal air entry with minimal bibasilar inspiratory crackles. No conversational dyspnea or accessory muscle use.. CVS: S1 and S2 normal, harsh grade 3 systolic murmur, irregular rhythm. No extra heart sounds ABDOMEN: No hepatosplenomegaly, active bowel sounds, no guarding or rigidity. SPINE: No scoliosis or deformity SKIN: No rashes CENTRAL NERVOUS SYSTEM: No focal deficits, tone is normal in all 4 extremities. EXTREMITIES: There is no peripheral edema, clubbing, or cyanosis. Peripheral pulses are intact. - Labs CBC & Chem 7: 02/24/25 05:54 02/23/25 06:24 Labs: Abnormal Lab Results - Last 24 Hours (Table) 02/23/25 02/24/25 02/24/25 Range/Units 18:53 05:49 05:54 RBC 3.26 L (4.40-5.60) 10*6/uL Hgb 7.8 L (13.0-17.0) g/dL Hct 24.1 L (39.6-50.0) % MCV 73.9 L (80.0-97.0) fL MCH 23.9 L (27.0-32.0) pg Eosinophils # 0.46 H (0.04-0.35) 10*3/uL APTT 41.3 H 40.6 H (22.0-30.0) sec Assessment and Plan Assessment: Acute hypoxemic respiratory failure, currently on 2 L/min nasal cannula, secondary to acute diastolic congestive heart failure and valvular heart disease. Chest x-ray remarkable for cardiomegaly, pulmonary vascular congestion. NT proBNP elevated at 12,600. Currently on a Lasix infusion at 10 mg/h and the patient is also on Zaroxolyn the patient is producing excellent amount of urine output. End-stage renal disease, being considered for peritoneal dialysis catheter, will inserted peritoneal catheter today with subsequent PD dialysis, GFR is at 14 Valvular heart disease, echocardiogram done this admission estimating left ventricular ejection fraction of 65 to 70% along with severe aortic valve sten osis and possible moderate aortic regurgitation. 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 Anemia of chronic disease Paroxysmal atrial fibrillation, chronically anticoagulated on Eliquis, currently on hold anticipating a PD catheter insertion Mild troponin leak, possibly secondary to demand ischemia and poor renal clearance Hypertension History of hyperlipidemia History of coronary artery disease with previous stents to the RCA and LAD Hypothyroidism Gastroesophageal reflux disease Remote history of tobacco use over 35 years ago Plan: Patient awaiting a PD catheter insertion, currently off anticoagulation the patient is on IV heparin. Currently on 2 L/min nasal cannula, wean as tolerated Continues on Lasix infusion at 10 mg/h. Patient is also on Zaroxolyn 5 mg p.o. daily. Fluid balance is negative Patient has valvular heart disease with severe aortic stenosis, and moderate aortic regurgitation and mitral insufficiency and severe pulmonary hypertension. Cardiology also consulted Eliquis is currently on hold. Being considered for possible peritoneal dialysis catheter during this hospitalization, awaiting a PD catheter insertion Continue Norvasc 5 mg p.o. daily and hydralazine 25 mg p.o. 3 times daily and Toprol-XL 25 mg p.o. daily .
[2025-02-25 08:30] LABS: Basophils # (A) 0.05 10*3/uL (0.00-0.10); Basophils % (A) 0.8 %; Eosinophils # (A) 0.45 10*3/uL (0.04-0.35); Eosinophils % (A) 7.3 %; HCT 25.3 % (39.6-50.0); HGB 8.1 g/dL (13.0-17.0); Immature Platelet Fraction 1.8 % (1.1-6.1); Lymphocytes # (A) 1.55 10*3/uL (0.90-5.00); Lymphocytes % (A) 25.1 %; MCH 23.5 pg (27.0-32.0); MCHC 32.0 g/dL (32.0-37.0); MCV 73.3 fL (80.0-97.0); Monocytes # (A) 0.57 10*3/uL (0.20-1.00); Monocytes % (A) 9.2 %; Neutrophils # (A) 3.55 10*3/uL (1.80-7.70); Neutrophils % (A) 57.4 %; Platelet Count 160 10*3/uL (140-440); RBC 3.45 10*6/uL (4.40-5.60); RDW 19.2 % (11.5-14.5); WBC 6.18 10*3/uL (4.50-10.00)
[2025-02-25 08:51] LABS: ALT 7 U/L (4-49); AST 14 U/L (17-59); African American GFR (CKD) 11 (>60 ml/min/1.73 sqM); Albumin 3.2 g/dL (3.5-5.0); Alkaline Phosphatase 71 U/L (38-126); Blood Urea Nitrogen 58 mg/dL (9-20); Calcium 8.7 mg/dL (8.4-10.2); Chloride 90 mmol/L (98-107); Glucose 87 mg/dL (74-99); Non-African American GFR(CKD) 10 (>60 ml/min/1.73 sqM); Potassium 4.4 mmol/L (3.5-5.1); Sodium 135 mmol/L (137-145); Total Protein 5.9 g/dL (6.3-8.2)
[2025-02-25 08:57] LABS: Anion Gap 7 mmol/L
[2025-02-25 08:58] LABS: Carbon Dioxide 38 mmol/L (22-30)
[2025-02-25] MEDS: IV FLUID CONTINUATION 1,000 ML IV ONE ×2 (10:39)
[2025-02-25 10:59] LABS: Glucose,Whole Blood 101 mg/dL (70-110)
[2025-02-25] MEDS: ONDANSETRON 4 MG/2 ML VIAL IVP ONE (10:59)
[2025-02-25] MEDS: DEXAMETHASONE SOD PHOSPHATE 4 MG/ML 1 ML VIAL IV ONE (10:59)
[2025-02-25] MEDS ORDERED: LIDOCAINE 4% LTA KIT (4 ML) TOPICAL ONE (12:00)
[2025-02-25] MEDS ORDERED: SUGAMMADEX SODIUM 100 MG/ML SYR IV ONE (12:00)
[2025-02-25] MEDS ORDERED: PHENYLEPHRINE-0.9% NACL SYG 1,000 MCG/10 ML SYRINGE ONE (12:00)
[2025-02-25] MEDS ORDERED: ROCURONIUM 10 MG/ML (5 ML VIAL) IV ONE (12:00)
[2025-02-25] MEDS ORDERED: MIDAZOLAM 2 MG/2 ML VIAL ONE (12:00)
[2025-02-25] MEDS ORDERED: SUCCINYLCHOLINE CHLORIDE 200 MG/10 ML VIAL IV ONE (12:00)
[2025-02-25] MEDS ORDERED: fentaNYL (PF) 50 MCG/ML 2 ML AMP ONE (12:00)
[2025-02-25] MEDS ORDERED: ETOMIDATE 2 MG/ML 10 ML VIAL ONE (12:00)
[2025-02-25] MEDS ORDERED: LIDOCAINE 1% INJ 10MG/ML (20 ML MDV) ONE (12:00)
[2025-02-25] MEDS: MINERAL OIL 1 APPLIC/ML OIL TOPICAL ONE (12:03)
[2025-02-25] MEDS: LIDOCAINE 1%-EPI 1:100,000 20 ML VIAL SQ ONE ×3 (12:03→12:48)
[2025-02-25] MEDS: SODIUM CHLORIDE 0.9% 50 ML with ceFAZolin 2,000 MG IV ONE (12:05)
--- NOTE | 2025-02-25 13:14 | P.PN ---
Subjective Progress Note Date: 02/25/25 Jayce Feldman is a 89-year-old male patient who presented with complaints of increased shortness of breath. Patient has a past medical history of end-stage renal disease and recently has agreed to initiate peritoneal dialysis. Patient reports he has plans for appointment on Friday to receive peritoneal dialysis catheter. Patient also has past medical history of atrial fibrillation and CHF. Chest x-ray completed showing acute bilateral cardiopulmonary process most likely CHF. Lab work completed showing white blood cell 6.71, hemoglobin 8.2, creatinine 3.9, bun 54, potassium 3.2. Troponin 0.075, 0.086 and 0.097. BNP elevated at 12,600. Patient did receive IV Lasix in ER. At this time patient will be admitted cardiology and nephrology services have been consulted. 2D echo has been ordered Home meds resumed. Patient complaints of shortness of breath. Patient denies chest pain. Patient denies nausea vomiting or diarrhea. Patient denies any urinary burning or frequency. Current vital signs temp 97, heart rate 76, respiratory rate 22, blood pressure 153/73 with pulse ox of 95% on 4 L On 02/21/2025 patient was seen and examined in the ICU he is alert and oriented x 3 in no apparent distress he is complaining of shortness of breath otherwise he denies any complaints at this time there is no fever or chills no headache or dizziness no chest pain no cough no nausea or vomiting no abdominal pain no diarrhea and no urinary symptoms. Patient is followed by multiple specialist i ncluding nephrology, cardiology consultation for critical care was initiated. Prognosis is guarded On 02/22/2025 patient is alert and oriented x 3. Patient remains on Lasix drip. Tentative plans for peritoneal dialysis catheter placement. Current vital signs temp 98.3, heart rate 78, respiratory rate 16, blood pressure 144/55 with pulse ox of 99% on 2 L. Patient having good urine output at this time. Patient denies chest pain or shortness of breath. Patient denies nausea vomiting or diarrhea. Patient denies any urinary burning or frequency On 02/23/2025 patient was seen and examined on the medical floor he is alert and oriented x 3 in no apparent distress he is still complaining of shortness of breath with any activity otherwise he denies any complaints there is no fever or chills no headache or dizziness no chest pain no nausea or vomiting no abdominal pain no diarrhea and no urinary symptoms. Plan is for peritoneal dialysis catheter placement during this admission, surgery, cardiology and nephrology are following On 02/24/2025 patient was seen and examined on the medical floor he is alert and oriented x 3 in no apparent distress there is no fever or chills no headache or dizziness no chest pain no shortness of breath no cough no nausea or vomiting no abdominal pain no diarrhea no urinary symptoms. Nephrology are following plan is to proceed with peritoneal dialysis On 02/25/2025 patient was seen and examined on the medical floor he is alert and oriented x 3 in no apparent distress there is no fever or chills no headache or dizziness no chest pain no shortness of breath no cough no nausea or vomiting no abdominal pain no diarrhea no urinary symptoms. Plans are for peritoneal dialysis catheter placement today Objective - Vital Signs Vital signs: Vital Signs Temp 98.4 F 02/25/25 10:39 Pulse 75 02/25/25 10:39 Resp 16 02/25/25 10:39 BP 123/89 02/25/25 10:39 Pulse Ox 96 02/25/25 10:39 FiO2 40 02/19/25 18:26 Intake & Output 02/24/25 02/25/25 02/25/25 18:59 06:59 18:59 Intake Total 928.617 100 318.631 Output Total 1300 1000 Balance -371.383 -900 318.631 Weight 88.9 kg 85.6 kg 85.6 kg Intake: IV 100 Intake, IV Titration 348.617 100 218.631 Amount Furosemide 100 mg In 100 100 41 Sodium Chloride 0.9% 90 ml @ 10 MG/HR 10 mls/hr IV .Q10H [facility] Rx#: [id number] Heparin Sod,Pork in 0.45% 248.617 177.631 NaCl 25,000 unit In 0.45 % NaCl 1 250ml.bag @ 11. 06 UNITS/KG/HR 9.998 mls/ hr IV .Q24H [facility] Rx#: [id number] Oral 580 0 Output: Urine 1300 1000 Other: Voiding Method Indwelling Catheter Indwelling Catheter Indwelling Catheter # Bowel Movements 0 - Exam In general patient is alert and oriented x 3 in no apparent distress Head normocephalic and atraumatic Neck supple no JVD no goiter Lungs exam reveals a scattered crackles in both lung goodman no wheezing Heart exam reveals irregular heart sounds S1-S2 no gallops no murmurs Abdomen is soft nontender nondistended positive bowel sounds no hepatosplenomegaly Extremities no edema Neuro alert and orientated to 3 - Labs CBC & Chem 7: 02/25/25 08:03 02/25/25 08:03 Labs: Abnormal Lab Results - Last 24 Hours (Table) 02/25/25 02/25/25 02/25/25 Range/Units 08:03 08:03 08:03 RBC 3.45 L (4.40-5.60) 10*6/uL Hgb 8.1 L (13.0-17.0) g/dL Hct 25.3 L (39.6-50.0) % MCV 73.3 L (80.0-97.0) fL MCH 23.5 L (27.0-32.0) pg Eosinophils # 0.45 H (0.04-0.35) 10*3/uL APTT 31.0 H (22.0-30.0) sec Sodium 135 L (137-145) mmol/L Chloride 90 L (98-107) mmol/L Carbon Dioxide 38 H (22-30) mmol/L BUN 58 H (9-20) mg/dL Creatinine 4.93 H (0.66-1.25) mg/dL AST 14 L (17-59) U/L Total Protein 5.9 L (6.3-8.2) g/dL Albumin 3.2 L (3.5-5.0) g/dL Assessment and Plan Assessment: Shortness of breath secondary to acute CHF exacerbation End-stage renal disease. Patient is now agreeable to peritoneal dialysis schedule peritoneal dialysis catheter placement for this Friday Elevated troponins Acute on chronic CHF exacerbation History of essential hypertension History of anemia of chronic kidney disease History of atrial fibrillation maintained on Eliquis History of BPH History of gout History of hypothyroidism DVT prophylaxis Eliquis. GI prophylax Protonix Cardiology and nephrology services consulted Patient started on Lasix drip Tentative plans for peritoneal dialysis catheter placement Repeat labs ordered
--- NOTE | 2025-02-25 14:07 | P.ANPRN ---
Procedure Note - Anesthesia - Invasive Line Left Arterial Line Time Out Performed: Yes (1150) Date of Procedure: 02/25/25 Time of Procedure: 11:51 Location of Patient: PreOp Preparation: Sterile Prep, Sterile Dressing Arterial Line Location: Radial (left) Ultrasound Used: No Purpose - Visualization and Identification of Vasculature: No Image Stored and Saved: No Narrative: Invasive line placement per sterile protocol utilized. Attempts x 2. Lumen blood and flushed. Secured and dressed.
[2025-02-25] MEDS: HYDROmorphone 0.5 MG/0.5 ML SYRINGE IVP PRN (14:19)
--- NOTE | 2025-02-25 15:49 | P.PN ---
Subjective Patient is seen for follow-up of chronic kidney disease stage V with renal function at baseline. He was admitted with shortness of breath and volume overload. Currently maintained on Lasix drip. 24-hour urine output at 2.3 L. Shortness of breath has improved. Scheduled for PD catheter placement today Currently with indwelling Wang catheter. Objective - Vital Signs Vital signs: Vital Signs Temp 97 F L 02/25/25 13:06 Pulse 64 02/25/25 14:55 Resp 18 02/25/25 14:55 BP 120/62 02/25/25 14:55 Pulse Ox 99 02/25/25 14:55 FiO2 40 02/19/25 18:26 Intake & Output 02/24/25 02/25/25 02/25/25 18:59 06:59 18:59 Intake Total 928.617 100 927.798 Output Total 1300 1000 355 Balance -371.383 -900 572.798 Weight 88.9 kg 85.6 kg 85.6 kg Intake: IV 650 Intake, IV Titration 348.617 100 277.798 Amount Furosemide 100 mg In 100 100 100.167 Sodium Chloride 0.9% 90 ml @ 10 MG/HR 10 mls/hr IV .Q10H [facility] Rx#: [id number] Heparin Sod,Pork in 0.45% 248.617 177.631 NaCl 25,000 unit In 0.45 % NaCl 1 250ml.bag @ 11. 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 intact - Labs CBC & Chem 7: 02/25/25 08:03 02/25/25 08:03 Labs: Abnormal Lab Results - Last 24 Hours (Table) 02/25/25 02/25/25 02/25/25 Range/Units 08:03 08:03 08:03 RBC 3.45 L (4.40-5.60) 10*6/uL Hgb 8.1 L (13.0-17.0) g/dL Hct 25.3 L (39.6-50.0) % MCV 73.3 L (80.0-97.0) fL MCH 23.5 L (27.0-32.0) pg Eosinophils # 0.45 H (0.04-0.35) 10*3/uL APTT 31.0 H (22.0-30.0) sec Sodium 135 L (137-145) mmol/L Chloride 90 L (98-107) mmol/L Carbon Dioxide 38 H (22-30) mmol/L BUN 58 H (9-20) mg/dL Creatinine 4.93 H (0.66-1.25) mg/dL AST 14 L (17-59) U/L Total Protein 5.9 L (6.3-8.2) g/dL Albumin 3.2 L (3.5-5.0) g/dL Assessment and Plan Assessment: 1. 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 Renal function at baseline 2. Acute hypoxic respiratory failure secondary to CHF and volume overload, improving 3. Volume overload. 4. Hypokalemia from diuresis. 5. Hypertension with chronic kidney disease. 6. Chronic kidney disease mineral bone disease. 7. Anemia of chronic kidney disease. Plan: Continue with Lasix drip continue Zaroxolyn Continue Aranesp PD catheter placement today No urgent need for dialysis as long as patient has good urine output and volume status continues to improve.
--- NOTE | 2025-02-25 19:08 | P.PN ---
Subjective Progress Note Date: 02/25/25 Patient about the same patient presented emergency department back in 02/19/2025 with chief complaint of increased work of breathing and lower extremity edema. He has past medical history significant for atrial fibrillation, heart failure, chronic kidney disease and is being considered for peritoneal dialysis catheter. Also, has history of COPD, remote history of tobacco use over 35 years ago, GERD/reflux, hypertension, hypothyroidism, among other things. Hyperlipidemia. Chest x-ray done on admission showing increased lung markings with cardiomegaly and pulmonary vascular markings. Severe enlarged pulmonary artery. Possible small left pleural effusion. NT proBNP was significant elevated at 12,600. Also, patient is known to have end-stage renal disease, and has refused hemodialysis in the past. He is being considered for peritoneal dialysis catheter tomorrow. Recent lab work including a CBC with a WBC count of 6.9, hemoglobin 7.7, platelets 158. BMP with a sodium 142, potassium 3.7, chloride 96, serum bicarb 39, BUN 52, creatinine 3.63, glucose 93. Serial troponins also marginally elevated at 0.075, 0.086, and 0.097. Transthoracic echocardiogram done this admission estimating a left ventricular ejection fraction of 65 to 70% with severe aortic valve stenosis and possible moderate aortic regurgitation. Moderate mitral insufficiency and severe pulmonary hypertension. RVSP 73.3 mmHg. Pulmonary consultation placed yesterday for increased work of breathing. Lasix drip is infusing at 10 mg/h. He does have an indwelling urinary catheter. He is making excellent urine output. His fluid balance is -1.5 L so far over the last 24 hours. He is being seen on the cardiac stepdown unit. States his breathing is "200% improved". The swelling in his legs is also improved. Denies any chest pain. Denies any lightheadedness or syncopal events. Denies any infectious symptoms. Endorses remote history of smoking, over 35 years ago. Denies any history of COPD or asthma. Current vital signs: Temperature 97.9 F, heart rate 94 bpm, blood pressure 152/73 mmHg, nontachypneic, SpO2 recorded 97% on 2 L/min nasal cannula. On 02/23/2025, the patient is being seen for a follow-up. The patient is doing well. Continues to produce adequate amount of urine output while being on Lasix and the patient is negative fluid balance. The patient was treated with Lasix drip and is still continued at 10 mg an hour and the patient is also on Zaroxolyn 5 mg p.o. daily. The patient was supposed to have the PD catheter inserted and this will be done tomorrow. Oxygenation remained stable on 2 L of oxygen by nasal cannula. Afebrile. The white cell count is 7.3 with a hemoglobin 8.1 and a platelet count of 163. Normal coagulation profile. BUN is 48 with a creatinine of 4.09. Potassium level is at 4.4. 02/24/2025, the patient is awaiting a PD catheter insertion. Still on Lasix drip and Zaroxolyn. No new complaints. Anticoagulation is on hold and the patient is currently on IV heparin. Hemoglobin is at 7.8. White cell count 7.2. No electrolytes from today. No other significant events and the patient has no new complaints. He does have some chronic reflux and occasional dysphagia that he brought up on today's evaluation. This can be evaluated at a later stage. No chest pain. No nausea or vomiting. The patient is currently on 2 L of oxygen by nasal cannula with a pulse ox of 97%. On 02/25/2025, the patient is being seen for a follow-up. The patient has no specific complaints. The patient will be taken to the operating room today for insertion of a PD catheter. This was done utilizing the laparoscopic approach. Respiratory status is stable. Pulse ox is 93% 40 the proximal nasal cannula. Electrolytes show a hemoglobin of 8.1, no significant leukocytosis, BUN 58 with a creatinine of 4.9 and sodium levels at 135. The patient remains on Lasix drip at 10 mg an hour. Remains on Zaroxolyn. Rest of the medications remain unchanged.. Is to follow post PD catheter insertion. Objective - Vital Signs Vital signs: Vital Signs Temp 98.4 F 02/25/25 10:39 Pulse 75 02/25/25 10:39 Resp 16 02/25/25 10:39 BP 123/89 02/25/25 10:39 Pulse Ox 96 02/25/25 10:39 FiO2 40 02/19/25 18:26 Intake & Output 02/24/25 02/25/25 02/25/25 18:59 06:59 18:59 Intake Total 928.866 123 9786.631 Output Total 1300 1000 Balance -371.383 -900 1268.631 Weight 88.9 kg 85.6 kg 85.6 kg Intake: IV 1050 Intake, IV Titration 348.617 100 218.631 Amount Furosemide 100 mg In 100 100 41 Sodium Chloride 0.9% 90 ml @ 10 MG/HR 10 mls/hr IV .Q10H [facility] Rx#: [id number] Heparin Sod,Pork in 0.45% 248.617 177.631 NaCl 25,000 unit In 0.45 % NaCl 1 250ml.bag @ 11. 06 UNITS/KG/HR 9.998 mls/ hr IV .Q24H [facility] Rx#: [id number] Oral 580 0 Output: Urine 1300 1000 Other: Voiding Method Indwelling Catheter Indwelling Catheter Indwelling Catheter # Bowel Movements 0 - Exam GENERAL EXAM: Alert, 89-year-old -[place] male, on 4 L/min nasal cannula, comfortable in no apparent distress. HEAD: Normocephalic and atraumatic EYES: Normal reaction of pupils, equal size. Corneal arcus. Anicteric. NOSE: Clear with pink turbinates. THROAT: No erythema or exudates. NECK: No masses, no JVD. CHEST: No chest wall deformity. LUNGS: Equal air entry with minimal bibasilar inspiratory crackles. No conversational dyspnea or accessory muscle use.. CVS: S1 and S2 normal, harsh grade 3 systolic murmur, irregular rhythm. No extra heart sounds ABDOMEN: No hepatosplenomegaly, active bowel sounds, no guarding or rigidity. SPINE: No scoliosis or deformity SKIN: No rashes CENTRAL NERVOUS SYSTEM: No focal deficits, tone is normal in all 4 extremities. EXTREMITIES: There is no peripheral edema, clubbing, or cyanosis. Peripheral pulses are intact. - Labs CBC & Chem 7: 02/25/25 08:03 02/25/25 08:03 Labs: Abnormal Lab Results - Last 24 Hours (Table) 02/25/25 02/25/25 02/25/25 Range/Units 08:03 08:03 08:03 RBC 3.45 L (4.40-5.60) 10*6/uL Hgb 8.1 L (13.0-17.0) g/dL Hct 25.3 L (39.6-50.0) % MCV 73.3 L (80.0-97.0) fL MCH 23.5 L (27.0-32.0) pg Eosinophils # 0.45 H (0.04-0.35) 10*3/uL APTT 31.0 H (22.0-30.0) sec Sodium 135 L (137-145) mmol/L Chloride 90 L (98-107) mmol/L Carbon Dioxide 38 H (22-30) mmol/L BUN 58 H (9-20) mg/dL Creatinine 4.93 H (0.66-1.25) mg/dL AST 14 L (17-59) U/L Total Protein 5.9 L (6.3-8.2) g/dL Albumin 3.2 L (3.5-5.0) g/dL Assessment and Plan Assessment: Acute hypoxemic respiratory failure, currently on 4 L/min nasal cannula, secondary to acute diastolic congestive heart failure and valvular heart disease. Chest x-ray remarkable for cardiomegaly, pulmonary vascular congestion. NT proBNP elevated at 12,600. Currently on a Lasix infusion at 10 mg/h and the patient is also on Zaroxolyn the patient is producing excellent amount of urine output. End-stage renal disease, being considered for peritoneal dialysis catheter, will inserted peritoneal catheter today with subsequent PD dialysis, GFR is at 14 Valvular heart disease, echocardiogram done this admission estimating left ventricular ejection fraction of 65 to 70% along with severe aortic valve stenosis and possible moderate aortic regurgitation. 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 Anemia of chronic disease Paroxysmal atrial fibrillation, chronically anticoagulated on Eliquis, currently on hold anticipating a PD catheter insertion Mild troponin leak, possibly secondary to demand ischemia and poor renal clearance Hypertension History of hyperlipidemia History of coronary artery disease with previous stents to the RCA and LAD Hypothyroidism Gastroesophageal reflux disease Remote history of tobacco use over 35 years ago Plan: PD catheter insertion today Currently on 4 L/min nasal cannula, wean as tolerated Continues on Lasix infusion at 10 mg/h. Patient is also on Zaroxolyn 5 mg p.o. daily. Fluid balance is negative Patient has valvular heart disease with severe aortic stenosis, and moderate aortic regurgitation and mitral insufficiency and severe pulmonary hypertension. Cardiology also consulted Eliquis is currently on hold. Being considered for possible peritoneal dialysis catheter during this hospitalization, awaiting a PD catheter insertion Continue Norvasc 5 mg p.o. daily and hydralazine 25 mg p.o. 3 times daily and Toprol-XL 25 mg p.o. daily .
[2025-02-25] MEDS: HYDROcodone/APAP 10-325MG 1 EACH TAB PO PRN (21:11)
--- NOTE | 2025-02-25 23:27 | P.OP ---
Date of Procedure: 02/25/25 Preoperative Diagnosis: End-stage renal disease Postoperative Diagnosis: End-stage renal disease Procedure(s) Performed: Peritoneal dialysis catheter, laparoscopic Implants: Peritoneal dialysis catheter Anesthesia: SYA Surgeon: Chauncey Sanchez Estimated Blood Loss (ml): 2 Pathology: none sent Condition: stable Disposition: PACU Indications for Procedure: End-stage renal disease Operative Findings: Minimal to mild ascites present intra-abdominal Description of Procedure: Patient was brought to the operating room where he was cleaned and draped in sterile fashion a timeout was performed and everyone agreed with the information resited an incision in the left upper quadrant using a #15 blade was made and a 5 mm Visiport was then used to gain access to the abdomen once the abdomen was then insufflated an incision was made 2 fingerbreadths below this and a #15 blade was then used to make an incision in the right mid abdomen as well and another 5 mm port was placed and extended 5 mm port was then used to tunneled through the preperitoneal space terminating in the pelvis. 2 cuffs were secured in the preperitoneum. At the tip of the catheter was then tunneled through a subcutaneous incision to completely bury the majority of the catheter we made sure that the pigtail terminated inside of the pelvis and we flushed normal saline through the catheter without difficulty we desufflated the abdomen and the incisions were closed using 4-0 Vicryl suture in interrupted fashion the patient tolerated the procedure well and was then transported to PACU in stable condition
[2025-02-26 03:47] LABS: Basophils # (A) 0.01 10*3/uL (0.00-0.10); Basophils % (A) 0.1 %; Eosinophils # (A) 0.00 10*3/uL (0.04-0.35); Eosinophils % (A) 0.0 %; HCT 24.3 % (39.6-50.0); HGB 7.7 g/dL (13.0-17.0); Immature Platelet Fraction 2.0 % (1.1-6.1); Lymphocytes # (A) 0.69 10*3/uL (0.90-5.00); Lymphocytes % (A) 8.7 %; MCH 23.5 pg (27.0-32.0); MCHC 31.7 g/dL (32.0-37.0); MCV 74.1 fL (80.0-97.0); Monocytes # (A) 0.59 10*3/uL (0.20-1.00); Monocytes % (A) 7.5 %; Neutrophils # (A) 6.59 10*3/uL (1.80-7.70); Neutrophils % (A) 83.3 %; Platelet Count 155 10*3/uL (140-440); RBC 3.28 10*6/uL (4.40-5.60); RDW 19.4 % (11.5-14.5); WBC 7.91 10*3/uL (4.50-10.00)
[2025-02-26 03:58] LABS: ALT 7 U/L (4-49); AST 14 U/L (17-59); African American GFR (CKD) 9 (>60 ml/min/1.73 sqM); Albumin 3.1 g/dL (3.5-5.0); Alkaline Phosphatase 75 U/L (38-126); Anion Gap 8 mmol/L; Blood Urea Nitrogen 63 mg/dL (9-20); Calcium 8.6 mg/dL (8.4-10.2); Carbon Dioxide 38 mmol/L (22-30); Chloride 88 mmol/L (98-107); Glucose 124 mg/dL (74-99); Non-African American GFR(CKD) 8 (>60 ml/min/1.73 sqM); Potassium 5.1 mmol/L (3.5-5.1); Sodium 134 mmol/L (137-145); Total Protein 5.9 g/dL (6.3-8.2)
[2025-02-26 09:52] LABS: INR 1.0 (<1.2); Prothrombin Time 10.6 sec (10.0-12.5)
--- NOTE | 2025-02-26 09:56 | P.PN ---
Subjective Patient seen and evaluated at bedside. Patient doing well, no complaints. Objective - Vital Signs Vital signs: Vital Signs Temp 98.0 F 02/26/25 04:00 Pulse 70 02/26/25 04:00 Resp 16 02/26/25 04:00 BP 132/50 02/26/25 04:00 Pulse Ox 92 L 02/26/25 08:28 FiO2 40 02/19/25 18:26 Intake & Output 02/25/25 02/26/25 02/26/25 18:59 06:59 18:59 Intake Total 1347.798 97 99.167 Output Total 355 400 Balance 992.798 -303 99.167 Weight 85.6 kg 90 kg Intake: IV 650 Intake, IV Titration 277.798 97 99.167 Amount Furosemide 100 mg In 100.167 97 99.167 Sodium Chloride 0.9% 90 ml @ 10 MG/HR 10 mls/hr IV .Q10H [facility] Rx#: [id number] Heparin Sod,Pork in 0.45% 177.631 0 NaCl 25,000 unit In 0.45 % NaCl 1 250ml.bag @ 11. 06 UNITS/KG/HR 9.998 mls/ hr IV .Q24H [facility] Rx#: [id number] Oral 420 0 Output: Urine 350 400 Estimated Blood Loss 5 Other: Voiding Method Indwelling Catheter Indwelling Catheter # Voids 1 - Exam gen: nad cv: rrr pul: non labored abd: soft, min tender to palpation, no guarding or rebound tenderness, surgical incisions c/d/i - Labs CBC & Chem 7: 02/26/25 03:04 02/26/25 03:04 Labs: Abnormal Lab Results - Last 24 Hours (Table) 02/26/25 02/26/25 02/26/25 Range/Units 03:04 03:04 03:04 RBC 3.28 L (4.40-5.60) 10*6/uL Hgb 7.7 L (13.0-17.0) g/dL Hct 24.3 L (39.6-50.0) % MCV 74.1 L (80.0-97.0) fL MCH 23.5 L (27.0-32.0) pg MCHC 31.7 L (32.0-37.0) g/dL Lymphocytes # 0.69 L (0.90-5.00) 10*3/uL Eosinophils # 0.00 L (0.04-0.35) 10*3/uL APTT 33.9 H (22.0-30.0) sec Sodium 134 L (137-145) mmol/L Chloride 88 L (98-107) mmol/L Carbon Dioxide 38 H (22-30) mmol/L BUN 63 H (9-20) mg/dL Creatinine 6.03 H (0.66-1.25) mg/dL Glucose 124 H (74-99) mg/dL AST 14 L (17-59) U/L Total Protein 5.9 L (6.3-8.2) g/dL Albumin 3.1 L (3.5-5.0) g/dL Assessment and Plan Assessment: 89 yo male s/p pd catheter placement -ok for regular diet -ok to use pd catheter 1 week from surgery Time with Patient: Less than 30
--- NOTE | 2025-02-26 11:54 | P.PN ---
Subjective Patient is seen for follow-up of chronic kidney disease stage V with renal function at baseline. He was admitted with shortness of breath and volume overload. Currently maintained on Lasix drip. 24-hour urine output at 2.3 L. Shortness of breath has improved. status post PD catheter placement yesterday. No bowel movement today Objective - Vital Signs Vital signs: Vital Signs Temp 98.0 F 02/26/25 04:00 Pulse 70 02/26/25 04:00 Resp 16 02/26/25 04:00 BP 132/50 02/26/25 04:00 Pulse Ox 92 L 02/26/25 08:28 FiO2 40 02/19/25 18:26 Intake & Output 02/25/25 02/26/25 02/26/25 18:59 06:59 18:59 Intake Total 1347.798 97 99.167 Output Total 355 400 Balance 992.798 -303 99.167 Weight 85.6 kg 90 kg Intake: IV 650 Intake, IV Titration 277.798 97 99.167 Amount Furosemide 100 mg In 100.167 97 99.167 Sodium Chloride 0.9% 90 ml @ 10 MG/HR 10 mls/hr IV .Q10H [facility] Rx#: [id number] Heparin Sod,Pork in 0.45% 177.631 0 NaCl 25,000 unit In 0.45 % NaCl 1 250ml.bag @ 11. 06 UNITS/KG/HR 9.998 mls/ hr IV .Q24H [facility] Rx#: [id number] Oral 420 0 Output: Urine 350 400 Estimated Blood Loss 5 Other: Voiding Method Indwelling Catheter Indwelling Catheter # Voids 1 - Exam Patient is awake, comfortable Alert oriented x 3 Examination of the heart S1 and S2 Examination of the lungs bilateral breath sounds are heard Abdomen is soft, nontender Examination of lower extremities shows no edema PICTURE ENGRAVER exam grossly intact - Labs CBC & Chem 7: 02/26/25 03:04 02/26/25 03:04 Labs: Abnormal Lab Results - Last 24 Hours (Table) 02/26/25 02/26/25 02/26/25 Range/Units 03:04 03:04 03:04 RBC 3.28 L (4.40-5.60) 10*6/uL Hgb 7.7 L (13.0-17.0) g/dL Hct 24.3 L (39.6-50.0) % MCV 74.1 L (80.0-97.0) fL MCH 23.5 L (27.0-32.0) pg MCHC 31.7 L (32.0-37.0) g/dL Lymphocytes # 0.69 L (0.90-5.00) 10*3/uL Eosinophils # 0.00 L (0.04-0.35) 10*3/uL APTT 33.9 H (22.0-30.0) sec Sodium 134 L (137-145) mmol/L Chloride 88 L (98-107) mmol/L Carbon Dioxide 38 H (22-30) mmol/L BUN 63 H (9-20) mg/dL Creatinine 6.03 H (0.66-1.25) mg/dL Glucose 124 H (74-99) mg/dL AST 14 L (17-59) U/L Total Protein 5.9 L (6.3-8.2) g/dL Albumin 3.1 L (3.5-5.0) g/dL Assessment and Plan Assessment: 1. 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 Renal function had been at baseline.serum creatinine slightly higher today. Lasix drip will be discontinued. Volume status has improved much 2. Acute hypoxic respiratory failure secondary to CHF and volume overload, improving 3. Volume overload. 4. Hypokalemia from diuresis. 5. Hypertension with chronic kidney disease. 6. Chronic kidney disease mineral bone disease. 7. Anemia of chronic kidney disease. Plan: DC Lasix drip and switch to IV push Lasix continue Zaroxolyn Continue Aranesp avoid constipation No urgent need for dialysis as long as patient has good urine output and volume status continues to improve.
--- NOTE | 2025-02-26 13:12 | P.PN ---
Subjective Progress Note Date: 02/26/25 Jayce Feldman is a 89-year-old male patient who presented with complaints of increased shortness of breath. Patient has a past medical history of end-stage renal disease and recently has agreed to initiate peritoneal dialysis. Patient reports he has plans for appointment on Friday to receive peritoneal dialysis catheter. Patient also has past medical history of atrial fibrillation and CHF. Chest x-ray completed showing acute bilateral cardiopulmonary process most likely CHF. Lab work completed showing white blood cell 6.71, hemoglobin 8.2, creatinine 3.9, bun 54, potassium 3.2. Troponin 0.075, 0.086 and 0.097. BNP elevated at 12,600. Patient did receive IV Lasix in ER. At this time patient will be admitted cardiology and nephrology services have been consulted. 2D echo has been ordered Home meds resumed. Patient complaints of shortness of breath. Patient denies chest pain. Patient denies nausea vomiting or diarrhea. Patient denies any urinary burning or frequency. Current vital signs temp 97, heart rate 76, respiratory rate 22, blood pressure 153/73 with pulse ox of 95% on 4 L On 02/21/2025 patient was seen and examined in the ICU he is alert and oriented x 3 in no apparent distress he is complaining of shortness of breath otherwise he denies any complaints at this time there is no fever or chills no headache or dizziness no chest pain no cough no nausea or vomiting no abdominal pain no diarrhea and no urinary symptoms. Patient is followed by multiple specialist i ncluding nephrology, cardiology consultation for critical care was initiated. Prognosis is guarded On 02/22/2025 patient is alert and oriented x 3. Patient remains on Lasix drip. Tentative plans for peritoneal dialysis catheter placement. Current vital signs temp 98.3, heart rate 78, respiratory rate 16, blood pressure 144/55 with pulse ox of 99% on 2 L. Patient having good urine output at this time. Patient denies chest pain or shortness of breath. Patient denies nausea vomiting or diarrhea. Patient denies any urinary burning or frequency On 02/23/2025 patient was seen and examined on the medical floor he is alert and oriented x 3 in no apparent distress he is still complaining of shortness of breath with any activity otherwise he denies any complaints there is no fever or chills no headache or dizziness no chest pain no nausea or vomiting no abdominal pain no diarrhea and no urinary symptoms. Plan is for peritoneal dialysis catheter placement during this admission, surgery, cardiology and nephrology are following On 02/24/2025 patient was seen and examined on the medical floor he is alert and oriented x 3 in no apparent distress there is no fever or chills no headache or dizziness no chest pain no shortness of breath no cough no nausea or vomiting no abdominal pain no diarrhea no urinary symptoms. Nephrology are following plan is to proceed with peritoneal dialysis On 02/25/2025 patient was seen and examined on the medical floor he is alert and oriented x 3 in no apparent distress there is no fever or chills no headache or dizziness no chest pain no shortness of breath no cough no nausea or vomiting no abdominal pain no diarrhea no urinary symptoms. Plans are for peritoneal dialysis catheter placement today. 02/26/2025 patient was seen and examined on the medical floor he is alert and oriented in no distress he is complaining of constipation complaining of generalized weakness otherwise he denies any complaint there is no fever or chills no headache or dizziness no chest pain no shortness of breath no cough no nausea or vomiting no abdominal pain no diarrhea and no urinary symptoms. He was switched to IV Lasix 60 mg q 12 hours Objective - Vital Signs Vital signs: Vital Signs Temp 98.0 F 02/26/25 04:00 Pulse 70 02/26/25 04:00 Resp 16 02/26/25 04:00 BP 132/50 02/26/25 04:00 Pulse Ox 92 L 02/26/25 08:28 FiO2 40 02/19/25 18:26 Intake & Output 02/25/25 02/26/25 02/26/25 18:59 06:59 18:59 Intake Total 1347.798 97 99.167 Output Total 355 400 Balance 992.798 -303 99.167 Weight 85.6 kg 90 kg Intake: IV 650 Intake, IV Titration 277.798 97 99.167 Amount Furosemide 100 mg In 100.167 97 99.167 Sodium Chloride 0.9% 90 ml @ 10 MG/HR 10 mls/hr IV .Q10H [facility] Rx#: [id number] Heparin Sod,Pork in 0.45% 177.631 0 NaCl 25,000 unit In 0.45 % NaCl 1 250ml.bag @ 11. 06 UNITS/KG/HR 9.998 mls/ hr IV .Q24H [facility] Rx#: [id number] Oral 420 0 Output: Urine 350 400 Estimated Blood Loss 5 Other: Voiding Method Indwelling Catheter Indwelling Catheter # Voids 1 - Exam In general patient is alert and oriented x 3 in no apparent distress Head normocephalic and atraumatic Neck supple no JVD no goiter Lungs exam reveals a scattered crackles in both lung goodman no wheezing Heart exam reveals irregular heart sounds S1-S2 no gallops no murmurs Abdomen is soft nontender nondistended positive bowel sounds no hepatosplenomegaly Extremities no edema Neuro alert and orientated to 3 - Labs CBC & Chem 7: 02/26/25 03:04 02/26/25 03:04 Labs: Abnormal Lab Results - Last 24 Hours (Table) 02/26/25 02/26/25 02/26/25 Range/Units 03:04 03:04 03:04 RBC 3.28 L (4.40-5.60) 10*6/uL Hgb 7.7 L (13.0-17.0) g/dL Hct 24.3 L (39.6-50.0) % MCV 74.1 L (80.0-97.0) fL MCH 23.5 L (27.0-32.0) pg MCHC 31.7 L (32.0-37.0) g/dL Lymphocytes # 0.69 L (0.90-5.00) 10*3/uL Eosinophils # 0.00 L (0.04-0.35) 10*3/uL APTT 33.9 H (22.0-30.0) sec Sodium 134 L (137-145) mmol/L Chloride 88 L (98-107) mmol/L Carbon Dioxide 38 H (22-30) mmol/L BUN 63 H (9-20) mg/dL Creatinine 6.03 H (0.66-1.25) mg/dL Glucose 124 H (74-99) mg/dL AST 14 L (17-59) U/L Total Protein 5.9 L (6.3-8.2) g/dL Albumin 3.1 L (3.5-5.0) g/dL Assessment and Plan Assessment: Shortness of breath secondary to acute CHF exacerbation End-stage renal disease. Patient is now agreeable to peritoneal dialysis schedule peritoneal dialysis catheter placement for this Friday Elevated troponins Acute on chronic CHF exacerbation History of essential hypertension History of anemia of chronic kidney disease History of atrial fibrillation maintained on Eliquis History of BPH History of gout History of hypothyroidism DVT prophylaxis Eliquis. GI prophylax Protonix Cardiology and nephrology services consulted Patient started on Lasix drip Tentative plans for peritoneal dialysis catheter placement Repeat labs ordered
--- NOTE | 2025-02-26 16:24 | P.PN ---
Subjective Progress Note Date: 02/26/25 Patient about the same patient presented emergency department back in 02/19/2025 with chief complaint of increased work of breathing and lower extremity edema. He has past medical history significant for atrial fibrillation, heart failure, chronic kidney disease and is being considered for peritoneal dialysis catheter. Also, has history of COPD, remote history of tobacco use over 35 years ago, GERD/reflux, hypertension, hypothyroidism, among other things. Hyperlipidemia. Chest x-ray done on admission showing increased lung markings with cardiomegaly and pulmonary vascular markings. Severe enlarged pulmonary artery. Possible small left pleural effusion. NT proBNP was significant elevated at 12,600. Also, patient is known to have end-stage renal disease, and has refused hemodialysis in the past. He is being considered for peritoneal dialysis catheter tomorrow. Recent lab work including a CBC with a WBC count of 6.9, hemoglobin 7.7, platelets 158. BMP with a sodium 142, potassium 3.7, chloride 96, serum bicarb 39, BUN 52, creatinine 3.63, glucose 93. Serial troponins also marginally elevated at 0.075, 0.086, and 0.097. Transthoracic echocardiogram done this admission estimating a left ventricular ejection fraction of 65 to 70% with severe aortic valve stenosis and possible moderate aortic regurgitation. Moderate mitral insufficiency and severe pulmonary hypertension. RVSP 73.3 mmHg. Pulmonary consultation placed yesterday for increased work of breathing. Lasix drip is infusing at 10 mg/h. He does have an indwelling urinary catheter. He is making excellent urine output. His fluid balance is -1.5 L so far over the last 24 hours. He is being seen on the cardiac stepdown unit. States his breathing is "200% improved". The swelling in his legs is also improved. Denies any chest pain. Denies any lightheadedness or syncopal events. Denies any infectious symptoms. Endorses remote history of smoking, over 35 years ago. Denies any history of COPD or asthma. Current vital signs: Temperature 97.9 F, heart rate 94 bpm, blood pressure 152/73 mmHg, nontachypneic, SpO2 recorded 97% on 2 L/min nasal cannula. On 02/23/2025, the patient is being seen for a follow-up. The patient is doing well. Continues to produce adequate amount of urine output while being on Lasix and the patient is negative fluid balance. The patient was treated with Lasix drip and is still continued at 10 mg an hour and the patient is also on Zaroxolyn 5 mg p.o. daily. The patient was supposed to have the PD catheter inserted and this will be done tomorrow. Oxygenation remained stable on 2 L of oxygen by nasal cannula. Afebrile. The white cell count is 7.3 with a hemoglobin 8.1 and a platelet count of 163. Normal coagulation profile. BUN is 48 with a creatinine of 4.09. Potassium level is at 4.4. 02/24/2025, the patient is awaiting a PD catheter insertion. Still on Lasix drip and Zaroxolyn. No new complaints. Anticoagulation is on hold and the patient is currently on IV heparin. Hemoglobin is at 7.8. White cell count 7.2. No electrolytes from today. No other significant events and the patient has no new complaints. He does have some chronic reflux and occasional dysphagia that he brought up on today's evaluation. This can be evaluated at a later stage. No chest pain. No nausea or vomiting. The patient is currently on 2 L of oxygen by nasal cannula with a pulse ox of 97%. On 02/25/2025, the patient is being seen for a follow-up. The patient has no specific complaints. The patient will be taken to the operating room today for insertion of a PD catheter. This was done utilizing the laparoscopic approach. Respiratory status is stable. Pulse ox is 93% 40 the proximal nasal cannula. Electrolytes show a hemoglobin of 8.1, no significant leukocytosis, BUN 58 with a creatinine of 4.9 and sodium levels at 135. The patient remains on Lasix drip at 10 mg an hour. Remains on Zaroxolyn. Rest of the medications remain unchanged.. Is to follow post PD catheter insertion. On 02/26/2025, the patient is being seen for a follow-up with the patient underwent a laparoscopic PD catheter insertion yesterday. The patient is doing well. No specific complaints. The patient remains on Lasix drip and the 24- hour urine output is in order of 2.3 L. No significant shortness of breath. Currently on 3 L of oxygen by nasal cannula with a pulse ox of 99%. Chief Program Officer on the case. The patient is awake and alert and communicating. He is also on Zaroxolyn. He is on Aranesp. No urgent need for hemodialysis at this point in time as the patient continues to produce good urine output. Objective - Vital Signs Vital signs: Vital Signs Temp 98.0 F 02/26/25 04:00 Pulse 70 02/26/25 04:00 Resp 16 02/26/25 04:00 BP 132/50 02/26/25 04:00 Pulse Ox 92 L 02/26/25 08:28 FiO2 40 02/19/25 18:26 Intake & Output 02/25/25 02/26/25 02/26/25 18:59 06:59 18:59 Intake Total 1347.798 97 99.167 Output Total 355 400 Balance 992.798 -303 99.167 Weight 85.6 kg 90 kg Intake: IV 650 Intake, IV Titration 277.798 97 99.167 Amount Furosemide 100 mg In 100.167 97 99.167 Sodium Chloride 0.9% 90 ml @ 10 MG/HR 10 mls/hr IV .Q10H [facility] Rx#: [id number] Heparin Sod,Pork in 0.45% 177.631 0 NaCl 25,000 unit In 0.45 % NaCl 1 250ml.bag @ 11. 06 UNITS/KG/HR 9.998 mls/ hr IV .Q24H [facility] Rx#: [id number] Oral 420 0 Output: Urine 350 400 Estimated Blood Loss 5 Other: Voiding Method Indwelling Catheter Indwelling Catheter # Voids 1 - Exam GENERAL EXAM: Alert, 89-year-old -[place] male, on 4 L/min nasal cannula, comfortable in no apparent distress. HEAD: Normocephalic and atraumatic EYES: Normal reaction of pupils, equal size. Corneal arcus. Anicteric. NOSE: Clear with pink turbinates. THROAT: No erythema or exudates. NECK: No masses, no JVD. CHEST: No chest wall deformity. LUNGS: Equal air entry with minimal bibasilar inspiratory crackles. No conversational dyspnea or accessory muscle use.. CVS: S1 and S2 normal, harsh grade 3 systolic murmur, irregular rhythm. No extra heart sounds ABDOMEN: No hepatosplenomegaly, active bowel sounds, no guarding or rigidity. SPINE: No scoliosis or deformity SKIN: No rashes CENTRAL NERVOUS SYSTEM: No focal deficits, tone is normal in all 4 extremities. EXTREMITIES: There is no peripheral edema, clubbing, or cyanosis. Peripheral pulses are intact. - Labs CBC & Chem 7: 02/26/25 03:04 02/26/25 03:04 Labs: Abnormal Lab Results - Last 24 Hours (Table) 02/26/25 02/26/25 02/26/25 Range/Units 03:04 03:04 03:04 RBC 3.28 L (4.40-5.60) 10*6/uL Hgb 7.7 L (13.0-17.0) g/dL Hct 24.3 L (39.6-50.0) % MCV 74.1 L (80.0-97.0) fL MCH 23.5 L (27.0-32.0) pg MCHC 31.7 L (32.0-37.0) g/dL Lymphocytes # 0.69 L (0.90-5.00) 10*3/uL Eosinophils # 0.00 L (0.04-0.35) 10*3/uL APTT 33.9 H (22.0-30.0) sec Sodium 134 L (137-145) mmol/L Chloride 88 L (98-107) mmol/L Carbon Dioxide 38 H (22-30) mmol/L BUN 63 H (9-20) mg/dL Creatinine 6.03 H (0.66-1.25) mg/dL Glucose 124 H (74-99) mg/dL AST 14 L (17-59) U/L Total Protein 5.9 L (6.3-8.2) g/dL Albumin 3.1 L (3.5-5.0) g/dL Assessment and Plan Assessment: Acute hypoxemic respiratory failure, currently on 4 L/min nasal cannula, secondary to acute diastolic congestive heart failure and valvular heart disease. Chest x-ray remarkable for cardiomegaly, pulmonary vascular congestion. NT proBNP elevated at 12,600. Currently on a Lasix infusion at 10 mg/h and the patient is also on Zaroxolyn the patient is producing excellent amount of urine output. End-stage renal disease, being considered for peritoneal dialysis catheter, will inserted peritoneal catheter today with subsequent PD dialysis, GFR is at 14 Valvular heart disease, echocardiogram done this admission estimating left ventricular ejection fraction of 65 to 70% along with severe aortic valve stenosis and possible moderate aortic regurgitation. 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 Anemia of chronic disease Paroxysmal atrial fibrillation, chronically anticoagulated on Eliquis, currently on hold anticipating a PD catheter insertion Mild troponin leak, possibly secondary to demand ischemia and poor renal clearance Hypertension History of hyperlipidemia History of coronary artery disease with previous stents to the RCA and LAD Hypothyroidism Gastroesophageal reflux disease Remote history of tobacco use over 35 years ago Plan: PD catheter insertion was done successfully on 02/25/2025 Currently on 3 L/min nasal cannula, wean as tolerated Continues on Lasix infusion at 10 mg/h. Patient is also on Zaroxolyn 5 mg p.o. daily. Excellent urine output. Fluid balance is negative Patient has valvular heart disease with severe aortic stenosis, and moderate aortic regurgitation and mitral insufficiency and severe pulmonary hypertension. Cardiology also consulted Eliquis can be resumed Continue Norvasc 5 mg p.o. daily and hydralazine 25 mg p.o. 3 times daily and Toprol-XL 25 mg p.o. daily Peritoneal dialysis per nephrology at a later stage We are going to sign off this case as the patient has no active pulmonary or c ritical care issues at this point. .
[2025-02-26] MEDS: FUROSEMIDE 10 MG/ML 10 ML VIAL IV SCH (22:02)
[2025-02-27 08:21] LABS: INR 0.9 (<1.2); Partial Thromboplastin Time 50.7 sec (22.0-30.0); Prothrombin Time 10.5 sec (10.0-12.5)
[2025-02-27 08:32] LABS: ALT <6 U/L (4-49); AST 17 U/L (17-59); African American GFR (CKD) 8 (>60 ml/min/1.73 sqM); Albumin 3.2 g/dL (3.5-5.0); Alkaline Phosphatase 79 U/L (38-126); Anion Gap 6 mmol/L; Blood Urea Nitrogen 67 mg/dL (9-20); Calcium 8.3 mg/dL (8.4-10.2); Carbon Dioxide 40 mmol/L (22-30); Chloride 90 mmol/L (98-107); Glucose 93 mg/dL (74-99); Non-African American GFR(CKD) 7 (>60 ml/min/1.73 sqM); Potassium 5.1 mmol/L (3.5-5.1); Sodium 136 mmol/L (137-145); Total Protein 5.8 g/dL (6.3-8.2)
[2025-02-27 08:45] LABS: Basophils # (A) 0.04 10*3/uL (0.00-0.10); Basophils % (A) 0.5 %; Eosinophils # (A) 0.47 10*3/uL (0.04-0.35); Eosinophils % (A) 5.6 %; HCT 24.8 % (39.6-50.0); HGB 7.8 g/dL (13.0-17.0); Lymphocytes # (A) 2.04 10*3/uL (0.90-5.00); Lymphocytes % (A) 24.5 %; MCH 23.0 pg (27.0-32.0); MCHC 31.5 g/dL (32.0-37.0); MCV 73.2 fL (80.0-97.0); Monocytes # (A) 0.67 10*3/uL (0.20-1.00); Monocytes % (A) 8.1 %; Neutrophils # (A) 5.07 10*3/uL (1.80-7.70); Neutrophils % (A) 60.9 %; Platelet Count 222 10*3/uL (140-440); RBC 3.39 10*6/uL (4.40-5.60); RDW 19.9 % (11.5-14.5); WBC 8.32 10*3/uL (4.50-10.00)
[2025-02-27 09:21] LABS: RBC Fragments Present
[2025-02-27 09:22] LABS: Ovalocytes Present
--- NOTE | 2025-02-27 09:40 | P.PN ---
Subjective Progress Note Date: 02/27/25 Jayce Feldman is a 89-year-old male patient who presented with complaints of increased shortness of breath. Patient has a past medical history of end-stage renal disease and recently has agreed to initiate peritoneal dialysis. Patient reports he has plans for appointment on Friday to receive peritoneal dialysis catheter. Patient also has past medical history of atrial fibrillation and CHF. Chest x-ray completed showing acute bilateral cardiopulmonary process most likely CHF. Lab work completed showing white blood cell 6.71, hemoglobin 8.2, creatinine 3.9, bun 54, potassium 3.2. Troponin 0.075, 0.086 and 0.097. BNP elevated at 12,600. Patient did receive IV Lasix in ER. At this time patient will be admitted cardiology and nephrology services have been consulted. 2D echo has been ordered Home meds resumed. Patient complaints of shortness of breath. Patient denies chest pain. Patient denies nausea vomiting or diarrhea. Patient denies any urinary burning or frequency. Current vital signs temp 97, heart rate 76, respiratory rate 22, blood pressure 153/73 with pulse ox of 95% on 4 L On 02/21/2025 patient was seen and examined in the ICU he is alert and oriented x 3 in no apparent distress he is complaining of shortness of breath otherwise he denies any complaints at this time there is no fever or chills no headache or dizziness no chest pain no cough no nausea or vomiting no abdominal pain no diarrhea and no urinary symptoms. Patient is followed by multiple specialist i ncluding nephrology, cardiology consultation for critical care was initiated. Prognosis is guarded On 02/22/2025 patient is alert and oriented x 3. Patient remains on Lasix drip. Tentative plans for peritoneal dialysis catheter placement. Current vital signs temp 98.3, heart rate 78, respiratory rate 16, blood pressure 144/55 with pulse ox of 99% on 2 L. Patient having good urine output at this time. Patient denies chest pain or shortness of breath. Patient denies nausea vomiting or diarrhea. Patient denies any urinary burning or frequency On 02/23/2025 patient was seen and examined on the medical floor he is alert and oriented x 3 in no apparent distress he is still complaining of shortness of breath with any activity otherwise he denies any complaints there is no fever or chills no headache or dizziness no chest pain no nausea or vomiting no abdominal pain no diarrhea and no urinary symptoms. Plan is for peritoneal dialysis catheter placement during this admission, surgery, cardiology and nephrology are following On 02/24/2025 patient was seen and examined on the medical floor he is alert and oriented x 3 in no apparent distress there is no fever or chills no headache or dizziness no chest pain no shortness of breath no cough no nausea or vomiting no abdominal pain no diarrhea no urinary symptoms. Nephrology are following plan is to proceed with peritoneal dialysis On 02/25/2025 patient was seen and examined on the medical floor he is alert and oriented x 3 in no apparent distress there is no fever or chills no headache or dizziness no chest pain no shortness of breath no cough no nausea or vomiting no abdominal pain no diarrhea no urinary symptoms. Plans are for peritoneal dialysis catheter placement today. 02/26/2025 patient was seen and examined on the medical floor he is alert and oriented in no distress he is complaining of constipation complaining of generalized weakness otherwise he denies any complaint there is no fever or chills no headache or dizziness no chest pain no shortness of breath no cough no nausea or vomiting no abdominal pain no diarrhea and no urinary symptoms. He was switched to IV Lasix 60 mg q 12 hours On 02/27/2025 patient was seen and examined on the medical floor he is alert and oriented x 3 in no apparent distress he is still complaining of constipation and complaining of severe weakness with difficulty standing and walking otherwise he denies any complaints there is no fever or chills no headache or dizziness no c hest pain no cough no nausea or vomiting no abdominal pain no diarrhea no urinary symptoms Objective - Vital Signs Vital signs: Vital Signs Temp 98.2 F 02/27/25 04:00 Pulse 71 02/27/25 04:00 Resp 16 02/27/25 04:00 BP 125/51 02/27/25 04:00 Pulse Ox 95 02/27/25 04:00 FiO2 40 02/19/25 18:26 Intake & Output 02/26/25 02/27/25 02/27/25 18:59 06:59 18:59 Intake Total 335.167 20 Output Total 450 400 Balance -114.833 -380 Weight 91.2 kg Intake: IV 20 Invasive Line 2 20 Intake, IV Titration 99.167 Amount Furosemide 100 mg In 99.167 Sodium Chloride 0.9% 90 ml @ 10 MG/HR 10 mls/hr IV .Q10H [facility] Rx#: [id number] Oral 236 Output: Urine 450 400 Other: Voiding Method Indwelling Catheter Indwelling Catheter - Exam In general patient is alert and oriented x 3 in no apparent distress Head normocephalic and atraumatic Neck supple no JVD no goiter Lungs exam reveals a scattered crackles in both lung goodman no wheezing Heart exam reveals irregular heart sounds S1-S2 no gallops no murmurs Abdomen is soft nontender nondistended positive bowel sounds no hepatospl enomegaly Extremities no edema Neuro alert and orientated to 3 - Labs CBC & Chem 7: 02/27/25 07:21 02/27/25 07:21 Labs: Abnormal Lab Results - Last 24 Hours (Table) 02/26/25 02/26/25 Range/Units 13:00 22:50 APTT 38.0 H 41.4 H (22.0-30.0) sec Assessment and Plan Assessment: Shortness of breath secondary to acute CHF exacerbation End-stage renal disease. Patient is now agreeable to peritoneal dialysis schedule peritoneal dialysis catheter placement for this Friday Elevated troponins Acute on chronic CHF exacerbation History of essential hypertension History of anemia of chronic kidney disease History of atrial fibrillation maintained on Eliquis History of BPH History of gout History of hypothyroidism DVT prophylaxis Eliquis. GI prophylax Protonix Cardiology and nephrology services consulted Patient started on Lasix drip Tentative plans for peritoneal dialysis catheter placement Repeat labs ordered
[2025-02-27] MEDS: LACTULOSE 20 GM/30 ML CUP PO ONE (10:39)
--- NOTE | 2025-02-27 11:36 | XR ---
EXAMINATION TYPE: XR chest 1V DATE OF EXAM: 02/27/2025 11:20 AM COMPARISON: Chest radiographs from 02/21/2025. CLINICAL INDICATION: Male, 89 years old with history of chf; TECHNIQUE: XR chest 1V Frontal view of the chest. FINDINGS: Lungs/Pleura: Blunting of the left costophrenic angle. There is no evidence of right pleural effusio n, focal consolidation, or pneumothorax Pulmonary vascularity: Unremarkable. Heart/mediastinum: Cardiomediastinal silhouette is enlarged. Musculoskeletal: No acute osseous pathology. IMPRESSION: Cardiomegaly, pulmonary vascular congestion and bilateral pleural effusions. Correlate with BNP for c ongestive heart failure. [facility], , 02/27/2025 11:33 AM
[2025-02-27] MEDS ORDERED: ZINC OXIDE PASTE (Z-GUARD) 1 APPLIC TOPICAL PRN (11:48)
--- NOTE | 2025-02-27 11:59 | P.PN ---
Subjective Patient is seen for follow-up of chronic kidney disease stage V with renal function at baseline. He was admitted with shortness of breath and volume overload. Status post Lasix drip Shortness of breath has improved. status post PD catheter placement on 02/25/2025. Constipation and distended colon noted on laparoscopy. No bowel movement yesterday. Patient has agreed for MiraLAX and possibly lactulose if he does not have good bowel movements. Good appetite. Serum creatinine increased to 6.4 mg/dL. Objective - Vital Signs Vital signs: Vital Signs Temp 98.2 F 02/27/25 04:00 Pulse 71 02/27/25 04:00 Resp 16 02/27/25 04:00 BP 125/51 02/27/25 04:00 Pulse Ox 95 02/27/25 04:00 FiO2 40 02/19/25 18:26 Intake & Output 02/26/25 02/27/25 02/27/25 18:59 06:59 18:59 Intake Total 335.167 20 306 Output Total 450 400 Balance -114.833 -380 306 Weight 91.2 kg Intake: IV 20 Invasive Line 2 20 Intake, IV Titration 99.167 Amount Furosemide 100 mg In 99.167 Sodium Chloride 0.9% 90 ml @ 10 MG/HR 10 mls/hr IV .Q10H [facility] Rx#: [id number] Oral 236 306 Output: Urine 450 400 Other: Voiding Method Indwelling Catheter Indwelling Catheter - Exam Patient is awake, comfortable Alert oriented x 3 Examination of the heart S1 and S2 Examination of the lungs bilateral breath sounds are heard Abdomen is soft, nontender Examination of lower extremities shows no edema INTERIOR BLOCK WIRER exam grossly intact - Labs CBC & Chem 7: 02/27/25 07:21 02/27/25 07:21 Labs: Abnormal Lab Results - Last 24 Hours (Table) 02/26/25 02/26/25 02/27/25 Range/Units 13:00 22:50 07:21 RBC 3.39 L (4.40-5.60) 10*6/uL Hgb 7.8 L (13.0-17.0) g/dL Hct 24.8 L (39.6-50.0) % MCV 73.2 L (80.0-97.0) fL MCH 23.0 L (27.0-32.0) pg MCHC 31.5 L (32.0-37.0) g/dL Eosinophils # 0.47 H (0.04-0.35) 10*3/uL APTT 38.0 H 41.4 H (22.0-30.0) sec Sodium (137-145) mmol/L Chloride (98-107) mmol/L Carbon Dioxide (22-30) mmol/L BUN (9-20) mg/dL Creatinine (0.66-1.25) mg/dL Calcium (8.4-10.2) mg/dL Total Protein (6.3-8.2) g/dL Albumin (3.5-5.0) g/dL 02/27/25 02/27/25 Range/Units 07:21 07:21 RBC (4.40-5.60) 10*6/uL Hgb (13.0-17.0) g/dL Hct (39.6-50.0) % MCV (80.0-97.0) fL MCH (27.0-32.0) pg MCHC (32.0-37.0) g/dL Eosinophils # (0.04-0.35) 10*3/uL APTT 50.7 H (22.0-30.0) sec Sodium 136 L (137-145) mmol/L Chloride 90 L (98-107) mmol/L Carbon Dioxide 40 H (22-30) mmol/L BUN 67 H (9-20) mg/dL Creatinine 6.48 H (0.66-1.25) mg/dL Calcium 8.3 L (8.4-10.2) mg/dL Total Protein 5.8 L (6.3-8.2) g/dL Albumin 3.2 L (3.5-5.0) g/dL Assessment and Plan Assessment: 1. 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 Renal function had been at baseline,serum creatinine slightly higher over the last 2 days. Lasix drip discontinued yesterday. Volume status has improved much. I am hoping to start low volume exchanges by tomorrow. 2. Acute hypoxic respiratory failure secondary to CHF and volume overload, improving 3. Volume overload. 4. Hypokalemia from diuresis. 5. Hypertension with chronic kidney disease. 6. Chronic kidney disease mineral bone disease. 7. Anemia of chronic kidney disease. 8. Metabolic alkalosis secondary to diuresis Plan: Check chest x-ray Decrease Lasix to 40 mg every 8 hours Diamox x 1 for metabolic alkalosis. Start low volume PD exchanges at least 2/day tomorrow Aggressive bowel regimen for treatment of constipation. continue Zaroxolyn Continue Aranesp
--- NOTE | 2025-02-27 18:24 | P.PN ---
Subjective Patient seen and evaluated at bedside. Patient resting comfortably Objective - Vital Signs Vital signs: Vital Signs Temp 98.2 F 02/27/25 09:55 Pulse 106 H 02/27/25 16:35 Resp 16 02/27/25 16:35 BP 119/62 02/27/25 16:35 Pulse Ox 98 02/27/25 16:35 FiO2 40 02/19/25 18:26 Intake & Output 02/26/25 02/27/25 02/27/25 18:59 06:59 18:59 Intake Total 335.167 20 424 Output Total 450 400 850 Balance -114.833 -380 -426 Weight 91.2 kg Intake: IV 20 Invasive Line 2 20 Intake, IV Titration 99.167 Amount Furosemide 100 mg In 99.167 Sodium Chloride 0.9% 90 ml @ 10 MG/HR 10 mls/hr IV .Q10H [facility] Rx#: [id number] Oral 236 424 Output: Urine 450 400 850 Other: Voiding Method Indwelling Catheter Indwelling Catheter Indwelling Catheter # Bowel Movements 1 - Exam gen: nad cv: rrr pul: non labored abd: soft, min tender to palpation, no guarding or rebound tenderness, surgical incisions c/d/i - Labs CBC & Chem 7: 02/27/25 07:21 02/27/25 07:21 Labs: Abnormal Lab Results - Last 24 Hours (Table) 02/26/25 02/27/25 02/27/25 Range/Units 22:50 07:21 07:21 RBC 3.39 L (4.40-5.60) 10*6/uL Hgb 7.8 L (13.0-17.0) g/dL Hct 24.8 L (39.6-50.0) % MCV 73.2 L (80.0-97.0) fL MCH 23.0 L (27.0-32.0) pg MCHC 31.5 L (32.0-37.0) g/dL Eosinophils # 0.47 H (0.04-0.35) 10*3/uL APTT 41.4 H (22.0-30.0) sec Sodium 136 L (137-145) mmol/L Chloride 90 L (98-107) mmol/L Carbon Dioxide 40 H (22-30) mmol/L BUN 67 H (9-20) mg/dL Creatinine 6.48 H (0.66-1.25) mg/dL Calcium 8.3 L (8.4-10.2) mg/dL Total Protein 5.8 L (6.3-8.2) g/dL Albumin 3.2 L (3.5-5.0) g/dL 02/27/25 Range/Units 07:21 RBC (4.40-5.60) 10*6/uL Hgb (13.0-17.0) g/dL Hct (39.6-50.0) % MCV (80.0-97.0) fL MCH (27.0-32.0) pg MCHC (32.0-37.0) g/dL Eosinophils # (0.04-0.35) 10*3/uL APTT 50.7 H (22.0-30.0) sec Sodium (137-145) mmol/L Chloride (98-107) mmol/L Carbon Dioxide (22-30) mmol/L BUN (9-20) mg/dL Creatinine (0.66-1.25) mg/dL Calcium (8.4-10.2) mg/dL Total Protein (6.3-8.2) g/dL Albumin (3.5-5.0) g/dL Assessment and Plan Assessment: 89 yo male s/p pd catheter placement -ok for regular diet -ok to use pd catheter 1 week from surgery Time with Patient: Less than 30
--- NOTE | 2025-02-27 19:10 | P.PN ---
Subjective Progress Note Date: 02/27/25 Patient about the same patient presented emergency department back in 02/19/2025 with chief complaint of increased work of breathing and lower extremity edema. He has past medical history significant for atrial fibrillation, heart failure, chronic kidney disease and is being considered for peritoneal dialysis catheter. Also, has history of COPD, remote history of tobacco use over 35 years ago, GERD/reflux, hypertension, hypothyroidism, among other things. Hyperlipidemia. Chest x-ray done on admission showing increased lung markings with cardiomegaly and pulmonary vascular markings. Severe enlarged pulmonary artery. Possible small left pleural effusion. NT proBNP was significant elevated at 12,600. Also, patient is known to have end-stage renal disease, and has refused hemodialysis in the past. He is being considered for peritoneal dialysis catheter tomorrow. Recent lab work including a CBC with a WBC count of 6.9, hemoglobin 7.7, platelets 158. BMP with a sodium 142, potassium 3.7, chloride 96, serum bicarb 39, BUN 52, creatinine 3.63, glucose 93. Serial troponins also marginally elevated at 0.075, 0.086, and 0.097. Transthoracic echocardiogram done this admission estimating a left ventricular ejection fraction of 65 to 70% with severe aortic valve stenosis and possible moderate aortic regurgitation. Moderate mitral insufficiency and severe pulmonary hypertension. RVSP 73.3 mmHg. Pulmonary consultation placed yesterday for increased work of breathing. Lasix drip is infusing at 10 mg/h. He does have an indwelling urinary catheter. He is making excellent urine output. His fluid balance is -1.5 L so far over the last 24 hours. He is being seen on the cardiac stepdown unit. States his breathing is "200% improved". The swelling in his legs is also improved. Denies any chest pain. Denies any lightheadedness or syncopal events. Denies any infectious symptoms. Endorses remote history of smoking, over 35 years ago. Denies any history of COPD or asthma. Current vital signs: Temperature 97.9 F, heart rate 94 bpm, blood pressure 152/73 mmHg, nontachypneic, SpO2 recorded 97% on 2 L/min nasal cannula. On 02/23/2025, the patient is being seen for a follow-up. The patient is doing well. Continues to produce adequate amount of urine output while being on Lasix and the patient is negative fluid balance. The patient was treated with Lasix drip and is still continued at 10 mg an hour and the patient is also on Zaroxolyn 5 mg p.o. daily. The patient was supposed to have the PD catheter inserted and this will be done tomorrow. Oxygenation remained stable on 2 L of oxygen by nasal cannula. Afebrile. The white cell count is 7.3 with a hemoglobin 8.1 and a platelet count of 163. Normal coagulation profile. BUN is 48 with a creatinine of 4.09. Potassium level is at 4.4. 02/24/2025, the patient is awaiting a PD catheter insertion. Still on Lasix drip and Zaroxolyn. No new complaints. Anticoagulation is on hold and the patient is currently on IV heparin. Hemoglobin is at 7.8. White cell count 7.2. No electrolytes from today. No other significant events and the patient has no new complaints. He does have some chronic reflux and occasional dysphagia that he brought up on today's evaluation. This can be evaluated at a later stage. No chest pain. No nausea or vomiting. The patient is currently on 2 L of oxygen by nasal cannula with a pulse ox of 97%. On 02/25/2025, the patient is being seen for a follow-up. The patient has no specific complaints. The patient will be taken to the operating room today for insertion of a PD catheter. This was done utilizing the laparoscopic approach. Respiratory status is stable. Pulse ox is 93% 40 the proximal nasal cannula. Electrolytes show a hemoglobin of 8.1, no significant leukocytosis, BUN 58 with a creatinine of 4.9 and sodium levels at 135. The patient remains on Lasix drip at 10 mg an hour. Remains on Zaroxolyn. Rest of the medications remain unchanged.. Is to follow post PD catheter insertion. On 02/26/2025, the patient is being seen for a follow-up with the patient underwent a laparoscopic PD catheter insertion yesterday. The patient is doing well. No specific complaints. The patient remains on Lasix drip and the 24- hour urine output is in order of 2.3 L. No significant shortness of breath. Currently on 3 L of oxygen by nasal cannula with a pulse ox of 99%. [employer] on the case. The patient is awake and alert and communicating. He is also on Zaroxolyn. He is on Aranesp. No urgent need for hemodialysis at this point in time as the patient continues to produce good urine output. On 02/27/2025, the patient is being seen for a follow-up. Patient is doing well. No specific complaints. Hemodynamically stable. The patient is currently on 3 days of oxygen by nasal cannula with pulse ox of 98%. The PD catheter was inserted and the patient has no issues with that. The patient is tolerating regular diet. The catheter can be potentially used within a week of insertion. Meanwhile, the patient is not having any major respiratory difficulties. He is having some constipation and diminished stool and the patient has agreed for Jona aLAX. On his blood work, the patient's creatinine is at 6.4 with a BUN of 67. Potassium levels of 5.1. Sodium is 136. WBC count is at 8.3 with a hemostat 0.8 and the platelet count of 222. Chest x-ray on 02/27/2025 showed cardiomegaly and pulm vessel congestion.Meanwhile, the patient remains on IV heparin, Lasix 60 mg IV push every 12 hours and Lasix drip has been discontinued the patient is also on Zaroxolyn. Rest of her medications remain unchanged. Objective - Vital Signs Vital signs: Vital Signs Temp 98.2 F 02/27/25 04:00 Pulse 71 02/27/25 04:00 Resp 16 02/27/25 04:00 BP 125/51 02/27/25 04:00 Pulse Ox 95 02/27/25 04:00 FiO2 40 02/19/25 18:26 Intake & Output 02/26/25 02/27/25 02/27/25 18:59 06:59 18:59 Intake Total 335.167 20 306 Output Total 450 400 Balance -114.833 -380 306 Weight 91.2 kg Intake: IV 20 Invasive Line 2 20 Intake, IV Titration 99.167 Amount Furosemide 100 mg In 99.167 Sodium Chloride 0.9% 90 ml @ 10 MG/HR 10 mls/hr IV .Q10H [facility] Rx#: [id number] Oral 236 306 Output: Urine 450 400 Other: Voiding Method Indwelling Catheter Indwelling Catheter - Exam GENERAL EXAM: Alert, 89-year-old -[place] male, on 4 L/min nasal cannula, comfortable in no apparent distress. HEAD: Normocephalic and atraumatic EYES: Normal reaction of pupils, equal size. Corneal arcus. Anicteric. NOSE: Clear with pink turbinates. THROAT: No erythema or exudates. NECK: No masses, no JVD. CHEST: No chest wall deformity. LUNGS: Equal air entry with minimal bibasilar inspiratory crackles. No conversational dyspnea or accessory muscle use.. CVS: S1 and S2 normal, harsh grade 3 systolic murmur, irregular rhythm. No extra heart sounds ABDOMEN: No hepatosplenomegaly, active bowel sounds, no guarding or rigidity. SPINE: No scoliosis or deformity SKIN: No rashes CENTRAL NERVOUS SYSTEM: No focal deficits, tone is normal in all 4 extremities. EXTREMITIES: There is no peripheral edema, clubbing, or cyanosis. Peripheral pulses are intact. - Labs CBC & Chem 7: 02/27/25 07:21 02/27/25 07:21 Labs: Abnormal Lab Results - Last 24 Hours (Table) 02/26/25 02/26/25 02/27/25 Range/Units 13:00 22:50 07:21 RBC 3.39 L (4.40-5.60) 10*6/uL Hgb 7.8 L (13.0-17.0) g/dL Hct 24.8 L (39.6-50.0) % MCV 73.2 L (80.0-97.0) fL MCH 23.0 L (27.0-32.0) pg MCHC 31.5 L (32.0-37.0) g/dL Eosinophils # 0.47 H (0.04-0.35) 10*3/uL APTT 38.0 H 41.4 H (22.0-30.0) sec Sodium (137-145) mmol/L Chloride (98-107) mmol/L Carbon Dioxide (22-30) mmol/L BUN (9-20) mg/dL Creatinine (0.66-1.25) mg/dL Calcium (8.4-10.2) mg/dL Total Protein (6.3-8.2) g/dL Albumin (3.5-5.0) g/dL 02/27/25 02/27/25 Range/Units 07:21 07:21 RBC (4.40-5.60) 10*6/uL Hgb (13.0-17.0) g/dL Hct (39.6-50.0) % MCV (80.0-97.0) fL MCH (27.0-32.0) pg MCHC (32.0-37.0) g/dL Eosinophils # (0.04-0.35) 10*3/uL APTT 50.7 H (22.0-30.0) sec Sodium 136 L (137-145) mmol/L Chloride 90 L (98-107) mmol/L Carbon Dioxide 40 H (22-30) mmol/L BUN 67 H (9-20) mg/dL Creatinine 6.48 H (0.66-1.25) mg/dL Calcium 8.3 L (8.4-10.2) mg/dL Total Protein 5.8 L (6.3-8.2) g/dL Albumin 3.2 L (3.5-5.0) g/dL Assessment and Plan Assessment: Acute hypoxemic respiratory failure, currently on 3L/min nasal cannula, secondary to acute diastolic congestive heart failure and valvular heart disease. Chest x-ray remarkable for cardiomegaly, pulmonary vascular congestion. NT proBNP elevated at 12,600. Currently on a Lasix 60 mg IV every 12 hours and the patient is also on Zaroxolyn the patient is producing urine. Meanwhile, a PD catheter was inserted End-stage renal disease, being considered for peritoneal dialysis catheter, PD catheter was inserted with subsequent PD dialysis, GFR is at 14 Valvular heart disease, echocardiogram done this admission estimating left ventricular ejection fraction of 65 to 70% along with severe aortic valve stenosis and possible moderate aortic regurgitation. 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 Anemia of chronic disease Paroxysmal atrial fibrillation, chronically anticoagulated on Eliquis, currently on hold anticipating a PD catheter insertion Mild troponin leak, possibly secondary to demand ischemia and poor renal clearance Hypertension History of hyperlipidemia History of coronary artery disease with previous stents to the RCA and LAD Hypothyroidism Gastroesophageal reflux disease Remote history of tobacco use over 35 years ago Plan: PD catheter insertion was done successfully on 02/25/2025 The patient should be able to use the catheter within a week of insertion Currently on 3 L/min nasal cannula, wean as tolerated Continues on Lasix 60 mg IV every 12 hours. Patient is also on Zaroxolyn 5 mg p.o. daily. Excellent urine output. Fluid balance is negative Patient has valvular heart disease with severe aortic stenosis, and moderate aortic regurgitation and mitral insufficiency and severe pulmonary hypertension. Cardiology also consulted Eliquis can be resumed Continue Norvasc 5 mg p.o. daily and hydralazine 25 mg p.o. 3 times daily and Toprol-XL 25 mg p.o. daily Peritoneal dialysis per nephrology at a later stage We are going to sign off this case as the patient has no active pulmonary or critical care issues at this point. .
[2025-02-28 06:39] LABS: Basophils # (A) 0.04 10*3/uL (0.00-0.10); Basophils % (A) 0.6 %; Eosinophils # (A) 0.53 10*3/uL (0.04-0.35); Eosinophils % (A) 7.4 %; HCT 23.8 % (39.6-50.0); HGB 7.7 g/dL (13.0-17.0); Immature Platelet Fraction 1.8 % (1.1-6.1); Lymphocytes # (A) 1.51 10*3/uL (0.90-5.00); Lymphocytes % (A) 21.2 %; MCH 23.9 pg (27.0-32.0); MCHC 32.4 g/dL (32.0-37.0); MCV 73.9 fL (80.0-97.0); Monocytes # (A) 0.63 10*3/uL (0.20-1.00); Monocytes % (A) 8.8 %; Neutrophils # (A) 4.38 10*3/uL (1.80-7.70); Neutrophils % (A) 61.6 %; Platelet Count 164 10*3/uL (140-440); RBC 3.22 10*6/uL (4.40-5.60); RDW 19.4 % (11.5-14.5); WBC 7.12 10*3/uL (4.50-10.00)
[2025-02-28 06:59] LABS: ALT <6 U/L (4-49); AST 16 U/L (17-59); African American GFR (CKD) 8 (>60 ml/min/1.73 sqM); Albumin 3.2 g/dL (3.5-5.0); Alkaline Phosphatase 79 U/L (38-126); Anion Gap 5 mmol/L; Blood Urea Nitrogen 70 mg/dL (9-20); Calcium 8.0 mg/dL (8.4-10.2); Carbon Dioxide 39 mmol/L (22-30); Chloride 91 mmol/L (98-107); Glucose 90 mg/dL (74-99); Non-African American GFR(CKD) 7 (>60 ml/min/1.73 sqM); Potassium 5.1 mmol/L (3.5-5.1); Sodium 135 mmol/L (137-145); Total Protein 5.9 g/dL (6.3-8.2)
[2025-02-28] MEDS: APIXABAN 2.5 MG TABLET PO SCH (10:12)
--- NOTE | 2025-02-28 10:19 | P.PN ---
Subjective Patient is seen in follow-up for end-stage renal disease. PD catheter replaced this admission. Currently on IV Lasix. Has Wang catheter. Nonoliguric. Denies chest pain or shortness of breath. Vital signs are stable. General: No acute distress. HEENT: Head exam is unremarkable. LUNGS: No audible rhonchi or wheezes. HEART: Rate and Rhythm are regular. ABDOMEN: Nontender. EXTREMITITES: No edema. Objective - Vital Signs Vital signs: Vital Signs Temp 98.3 F 02/28/25 04:00 Pulse 72 02/28/25 04:00 Resp 18 02/28/25 04:00 BP 120/56 02/28/25 04:00 Pulse Ox 97 02/28/25 04:00 FiO2 40 02/19/25 18:26 Intake & Output 02/27/25 02/28/25 02/28/25 18:59 06:59 18:59 Intake Total 424 480 118 Output Total 850 700 Balance -426 -220 118 Weight 58.1 kg Intake: Oral 424 480 118 Output: Urine 850 700 Other: Voiding Method Indwelling Catheter Indwelling Catheter # Voids 1 # Bowel Movements 1 - Labs CBC & Chem 7: 02/28/25 06:09 02/28/25 06:09 Labs: Abnormal Lab Results - Last 24 Hours (Table) 02/28/25 02/28/25 Range/Units 06:09 06:09 RBC 3.22 L (4.40-5.60) 10*6/uL Hgb 7.7 L (13.0-17.0) g/dL Hct 23.8 L (39.6-50.0) % MCV 73.9 L (80.0-97.0) fL MCH 23.9 L (27.0-32.0) pg Eosinophils # 0.53 H (0.04-0.35) 10*3/uL Sodium 135 L (137-145) mmol/L Chloride 91 L (98-107) mmol/L Carbon Dioxide 39 H (22-30) mmol/L BUN 70 H (9-20) mg/dL Creatinine 6.47 H (0.66-1.25) mg/dL Calcium 8.0 L (8.4-10.2) mg/dL AST 16 L (17-59) U/L Total Protein 5.9 L (6.3-8.2) g/dL Albumin 3.2 L (3.5-5.0) g/dL Assessment and Plan Plan: Assessment: 1. 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 PD catheter placed at this admission. 2. Acute hypoxic respiratory failure. Currently on 3 L nasal cannula. Patient wears 2 L oxygen at home. 3. Volume overload. Improved with diuresis. 4. Hypokalemia from diuresis. Replaced. 5. Hypertension with chronic kidney disease. Controlled. 6. Chronic kidney disease mineral bone disease. 7. Anemia of chronic kidney disease. On Aranesp. Plan: Maintain IV Lasix. Maintain metolazone. Add Diamox. Avoid nephrotoxins. Patient will start PD training outpatient.
--- NOTE | 2025-02-28 11:58 | P.PN ---
Subjective Progress Note Date: 02/28/25 Patient seen and examined at bedside. No acute events. Appears to be much improved since admission. Objective - Vital Signs Vital signs: Vital Signs Temp 97.8 F 02/28/25 09:35 Pulse 71 02/28/25 09:35 Resp 18 02/28/25 09:35 BP 110/43 02/28/25 09:35 Pulse Ox 98 02/28/25 09:35 FiO2 40 02/19/25 18:26 Intake & Output 02/27/25 02/28/25 02/28/25 18:59 06:59 18:59 Intake Total 424 480 118 Output Total 850 700 Balance -426 -220 118 Weight 58.1 kg Intake: Oral 424 480 118 Output: Urine 850 700 Other: Voiding Method Indwelling Catheter Indwelling Catheter Indwelling Catheter # Voids 1 # Bowel Movements 1 - Constitutional General appearance: Present: cooperative - Respiratory Details: No difficulty with respiration - Gastrointestinal Gastrointestinal Comment(s): Soft, nontender, incision sites healing well, PD catheter in place - Labs CBC & Chem 7: 02/28/25 06:09 02/28/25 06:09 Labs: Abnormal Lab Results - Last 24 Hours (Table) 02/28/25 02/28/25 Range/Units 06:09 06:09 RBC 3.22 L (4.40-5.60) 10*6/uL Hgb 7.7 L (13.0-17.0) g/dL Hct 23.8 L (39.6-50.0) % MCV 73.9 L (80.0-97.0) fL MCH 23.9 L (27.0-32.0) pg Eosinophils # 0.53 H (0.04-0.35) 10*3/uL Sodium 135 L (137-145) mmol/L Chloride 91 L (98-107) mmol/L Carbon Dioxide 39 H (22-30) mmol/L BUN 70 H (9-20) mg/dL Creatinine 6.47 H (0.66-1.25) mg/dL Calcium 8.0 L (8.4-10.2) mg/dL AST 16 L (17-59) U/L Total Protein 5.9 L (6.3-8.2) g/dL Albumin 3.2 L (3.5-5.0) g/dL Assessment and Plan Plan: 89-year-old male status post PD catheter placement. Patient to begin dialysis per nephrology. Continue local wound care.
[2025-02-28] MEDS: acetaZOLAMIDE 250 MG TAB PO SCH (17:12)
--- NOTE | 2025-02-28 18:49 | P.PN ---
Subjective Progress Note Date: 02/28/25 Jayce Feldman is a 89-year-old male patient who presented with complaints of increased shortness of breath. Patient has a past medical history of end-stage renal disease and recently has agreed to initiate peritoneal dialysis. Patient reports he has plans for appointment on Friday to receive peritoneal dialysis catheter. Patient also has past medical history of atrial fibrillation and CHF. Chest x-ray completed showing acute bilateral cardiopulmonary process most likely CHF. Lab work completed showing white blood cell 6.71, hemoglobin 8.2, creatinine 3.9, bun 54, potassium 3.2. Troponin 0.075, 0.086 and 0.097. BNP elevated at 12,600. Patient did receive IV Lasix in ER. At this time patient will be admitted cardiology and nephrology services have been consulted. 2D echo has been ordered Home meds resumed. Patient complaints of shortness of breath. Patient denies chest pain. Patient denies nausea vomiting or diarrhea. Patient denies any urinary burning or frequency. Current vital signs temp 97, heart rate 76, respiratory rate 22, blood pressure 153/73 with pulse ox of 95% on 4 L On 02/21/2025 patient was seen and examined in the ICU he is alert and oriented x 3 in no apparent distress he is complaining of shortness of breath otherwise he denies any complaints at this time there is no fever or chills no headache or dizziness no chest pain no cough no nausea or vomiting no abdominal pain no diarrhea and no urinary symptoms. Patient is followed by multiple specialist i ncluding nephrology, cardiology consultation for critical care was initiated. Prognosis is guarded On 02/22/2025 patient is alert and oriented x 3. Patient remains on Lasix drip. Tentative plans for peritoneal dialysis catheter placement. Current vital signs temp 98.3, heart rate 78, respiratory rate 16, blood pressure 144/55 with pulse ox of 99% on 2 L. Patient having good urine output at this time. Patient denies chest pain or shortness of breath. Patient denies nausea vomiting or diarrhea. Patient denies any urinary burning or frequency On 02/23/2025 patient was seen and examined on the medical floor he is alert and oriented x 3 in no apparent distress he is still complaining of shortness of breath with any activity otherwise he denies any complaints there is no fever or chills no headache or dizziness no chest pain no nausea or vomiting no abdominal pain no diarrhea and no urinary symptoms. Plan is for peritoneal dialysis catheter placement during this admission, surgery, cardiology and nephrology are following On 02/24/2025 patient was seen and examined on the medical floor he is alert and oriented x 3 in no apparent distress there is no fever or chills no headache or dizziness no chest pain no shortness of breath no cough no nausea or vomiting no abdominal pain no diarrhea no urinary symptoms. Nephrology are following plan is to proceed with peritoneal dialysis On 02/25/2025 patient was seen and examined on the medical floor he is alert and oriented x 3 in no apparent distress there is no fever or chills no headache or dizziness no chest pain no shortness of breath no cough no nausea or vomiting no abdominal pain no diarrhea no urinary symptoms. Plans are for peritoneal dialysis catheter placement today. 02/26/2025 patient was seen and examined on the medical floor he is alert and oriented in no distress he is complaining of constipation complaining of generalized weakness otherwise he denies any complaint there is no fever or chills no headache or dizziness no chest pain no shortness of breath no cough no nausea or vomiting no abdominal pain no diarrhea and no urinary symptoms. He was switched to IV Lasix 60 mg q 12 hours On 02/27/2025 patient was seen and examined on the medical floor he is alert and oriented x 3 in no apparent distress he is still complaining of constipation and complaining of severe weakness with difficulty standing and walking otherwise he denies any complaints there is no fever or chills no headache or dizziness no c hest pain no cough no nausea or vomiting no abdominal pain no diarrhea no urinary symptoms. On 02/28/2025 patient was seen on the medical floor he is alert and oriented x 3 in no apparent distress vital examination reveals a temperature of 97.8 pulse 71 respiration 18 blood pressure 110/43 pulse ox 98% on 3 L nasal cannula white blood count is 7.12 hemoglobin 7.7 platelet count 164 BUN 70 creatinine 6.47 patient is maintained on IV Lasix oral metolazone and Diamox was added to regimen today. Plan per nephrology is to continue his current regimen and start peritoneal dialysis training as outpatient Objective - Vital Signs Vital signs: Vital Signs Temp 97.9 F 02/28/25 12:30 Pulse 78 02/28/25 12:30 Resp 18 02/28/25 12:30 BP 119/52 02/28/25 12:30 Pulse Ox 93 L 02/28/25 12:30 FiO2 40 02/19/25 18:26 Intake & Output 02/27/25 02/28/25 02/28/25 18:59 06:59 18:59 Intake Total 424 480 118 Output Total 850 700 Balance -426 -220 118 Weight 58.1 kg Intake: Oral 424 480 118 Output: Urine 850 700 Other: Voiding Method Indwelling Catheter Indwelling Catheter Indwelling Catheter # Voids 1 # Bowel Movements 1 - Exam In general patient is alert and oriented x 3 in no apparent distress Head normocephalic and atraumatic Neck supple no JVD no goiter Lungs exam reveals a scattered crackles in both lung goodman no wheezing Heart exam reveals irregular heart sounds S1-S2 no gallops no murmurs Abdomen is soft nontender nondistended positive bowel sounds no hepatosplenomegaly Extremities no edema Neuro alert and orientated to 3 - Labs CBC & Chem 7: 02/28/25 06:09 02/28/25 06:09 Labs: Abnormal Lab Results - Last 24 Hours (Table) 02/28/25 02/28/25 Range/Units 06:09 06:09 RBC 3.22 L (4.40-5.60) 10*6/uL Hgb 7.7 L (13.0-17.0) g/dL Hct 23.8 L (39.6-50.0) % MCV 73.9 L (80.0-97.0) fL MCH 23.9 L (27.0-32.0) pg Eosinophils # 0.53 H (0.04-0.35) 10*3/uL Sodium 135 L (137-145) mmol/L Chloride 91 L (98-107) mmol/L Carbon Dioxide 39 H (22-30) mmol/L BUN 70 H (9-20) mg/dL Creatinine 6.47 H (0.66-1.25) mg/dL Calcium 8.0 L (8.4-10.2) mg/dL AST 16 L (17-59) U/L Total Protein 5.9 L (6.3-8.2) g/dL Albumin 3.2 L (3.5-5.0) g/dL Assessment and Plan Assessment: Shortness of breath secondary to acute CHF exacerbation End-stage renal disease. Patient is now agreeable to peritoneal dialysis schedule peritoneal dialysis catheter placement for this Friday Elevated troponins Acute on chronic CHF exacerbation History of essential hypertension History of anemia of chronic kidney disease History of atrial fibrillation maintained on Eliquis History of BPH History of gout History of hypothyroidism DVT prophylaxis Eliquis. GI prophylax Protonix Cardiology and nephrology services consulted Patient started on Lasix drip Tentative plans for peritoneal dialysis catheter placement Repeat labs ordered
[2025-03-01 08:06] LABS: African American GFR (CKD) 6 (>60 ml/min/1.73 sqM); Anion Gap 9 mmol/L; Blood Urea Nitrogen 66 mg/dL (9-20); Calcium 8.5 mg/dL (8.4-10.2); Carbon Dioxide 38 mmol/L (22-30); Chloride 91 mmol/L (98-107); Glucose 99 mg/dL (74-99); Magnesium 1.9 mg/dL (1.6-2.3); Non-African American GFR(CKD) 6 (>60 ml/min/1.73 sqM); Potassium 5.1 mmol/L (3.5-5.1); Sodium 138 mmol/L (137-145)
[2025-03-01] MEDS: LACTULOSE 20 GM/30 ML CUP PO PRN ×2 (10:05→15:25)
--- NOTE | 2025-03-01 10:43 | P.PN ---
Subjective Patient is seen in follow-up for end-stage renal disease. PD catheter replaced this admission. Currently on IV Lasix. Has Wang catheter. Nonoliguric. Denies chest pain or shortness of breath. Creatinine 7.75 today. Vital signs are stable. General: No acute distress. HEENT: Head exam is unremarkable. LUNGS: No audible rhonchi or wheezes. HEART: Rate and Rhythm are regular. ABDOMEN: Nontender. EXTREMITITES: No edema. Objective - Vital Signs Vital signs: Vital Signs Temp 98.1 F 03/01/25 04:00 Pulse 76 03/01/25 04:00 Resp 20 03/01/25 04:00 BP 136/65 03/01/25 04:00 Pulse Ox 99 03/01/25 04:00 FiO2 40 02/19/25 18:26 Intake & Output 02/28/25 03/01/25 03/01/25 18:59 06:59 18:59 Intake Total 118 Output Total 750 1000 Balance -632 -1000 Weight 87.5 kg Intake: Oral 118 Output: Urine 750 1000 Other: Voiding Method Indwelling Catheter Indwelling Catheter # Voids 1 # Bowel Movements 1 - Labs CBC & Chem 7: 02/28/25 06:09 03/01/25 06:59 Labs: Abnormal Lab Results - Last 24 Hours (Table) 03/01/25 Range/Units 06:59 Chloride 91 L (98-107) mmol/L Carbon Dioxide 38 H (22-30) mmol/L BUN 66 H (9-20) mg/dL Creatinine 7.75 H* (0.66-1.25) mg/dL Assessment and Plan Plan: Assessment: 1. 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 PD catheter placed at this admission. 2. Acute hypoxic respiratory failure. Currently on 2 L nasal cannula. 3. Volume overload. Improved with diuresis. 4. Hypokalemia from diuresis. Replaced. 5. Hypertension with chronic kidney disease. Controlled. 6. Chronic kidney disease mineral bone disease. 7. Anemia of chronic kidney disease. On Aranesp. Plan: Stop IV Lasix. Add torsemide 40 mg once daily. Maintain metolazone. Maintain Diamox for another day. Avoid nephrotoxins. Start low volume PD exchanges. Patient will start PD training outpatient.
[2025-03-01] MEDS ORDERED: DIALYSIS (PERIT 1.5%) 1,000 ML 15 G/1,000 ML BAG INTRAPERIT SCH (12:00)
--- NOTE | 2025-03-01 13:10 | P.PN ---
Subjective Progress Note Date: 03/01/25 Jayce Feldman is a 89-year-old male patient who presented with complaints of increased shortness of breath. Patient has a past medical history of end-stage renal disease and recently has agreed to initiate peritoneal dialysis. Patient reports he has plans for appointment on Friday to receive peritoneal dialysis catheter. Patient also has past medical history of atrial fibrillation and CHF. Chest x-ray completed showing acute bilateral cardiopulmonary process most likely CHF. Lab work completed showing white blood cell 6.71, hemoglobin 8.2, creatinine 3.9, bun 54, potassium 3.2. Troponin 0.075, 0.086 and 0.097. BNP elevated at 12,600. Patient did receive IV Lasix in ER. At this time patient will be admitted cardiology and nephrology services have been consulted. 2D echo has been ordered Home meds resumed. Patient complaints of shortness of breath. Patient denies chest pain. Patient denies nausea vomiting or diarrhea. Patient denies any urinary burning or frequency. Current vital signs temp 97, heart rate 76, respiratory rate 22, blood pressure 153/73 with pulse ox of 95% on 4 L On 02/21/2025 patient was seen and examined in the ICU he is alert and oriented x 3 in no apparent distress he is complaining of shortness of breath otherwise he denies any complaints at this time there is no fever or chills no headache or dizziness no chest pain no cough no nausea or vomiting no abdominal pain no diarrhea and no urinary symptoms. Patient is followed by multiple specialist i ncluding nephrology, cardiology consultation for critical care was initiated. Prognosis is guarded On 02/22/2025 patient is alert and oriented x 3. Patient remains on Lasix drip. Tentative plans for peritoneal dialysis catheter placement. Current vital signs temp 98.3, heart rate 78, respiratory rate 16, blood pressure 144/55 with pulse ox of 99% on 2 L. Patient having good urine output at this time. Patient denies chest pain or shortness of breath. Patient denies nausea vomiting or diarrhea. Patient denies any urinary burning or frequency On 02/23/2025 patient was seen and examined on the medical floor he is alert and oriented x 3 in no apparent distress he is still complaining of shortness of breath with any activity otherwise he denies any complaints there is no fever or chills no headache or dizziness no chest pain no nausea or vomiting no abdominal pain no diarrhea and no urinary symptoms. Plan is for peritoneal dialysis catheter placement during this admission, surgery, cardiology and nephrology are following On 02/24/2025 patient was seen and examined on the medical floor he is alert and oriented x 3 in no apparent distress there is no fever or chills no headache or dizziness no chest pain no shortness of breath no cough no nausea or vomiting no abdominal pain no diarrhea no urinary symptoms. Nephrology are following plan is to proceed with peritoneal dialysis On 02/25/2025 patient was seen and examined on the medical floor he is alert and oriented x 3 in no apparent distress there is no fever or chills no headache or dizziness no chest pain no shortness of breath no cough no nausea or vomiting no abdominal pain no diarrhea no urinary symptoms. Plans are for peritoneal dialysis catheter placement today. 02/26/2025 patient was seen and examined on the medical floor he is alert and oriented in no distress he is complaining of constipation complaining of generalized weakness otherwise he denies any complaint there is no fever or chills no headache or dizziness no chest pain no shortness of breath no cough no nausea or vomiting no abdominal pain no diarrhea and no urinary symptoms. He was switched to IV Lasix 60 mg q 12 hours On 02/27/2025 patient was seen and examined on the medical floor he is alert and oriented x 3 in no apparent distress he is still complaining of constipation and complaining of severe weakness with difficulty standing and walking otherwise he denies any complaints there is no fever or chills no headache or dizziness no c hest pain no cough no nausea or vomiting no abdominal pain no diarrhea no urinary symptoms. On 02/28/2025 patient was seen on the medical floor he is alert and oriented x 3 in no apparent distress vital examination reveals a temperature of 97.8 pulse 71 respiration 18 blood pressure 110/43 pulse ox 98% on 3 L nasal cannula white blood count is 7.12 hemoglobin 7.7 platelet count 164 BUN 70 creatinine 6.47 patient is maintained on IV Lasix oral metolazone and Diamox was added to regimen today. Plan per nephrology is to continue his current regimen and start peritoneal dialysis training as outpatient' On 03/01/2025 patient is alert and oriented x 3. Lactulose given for constipation plans to start peritoneal dialysis today per nephrology services. Patient denies chest pain or shortness of breath. Patient denies nausea vomiting or diarrhea. Patient denies any urinary burning or frequency current vital signs temp 97.9, heart 89, respiratory rate 16, blood pressure 115/56 with pulse ox of 97% on 2 L Objective - Vital Signs Vital signs: Vital Signs Temp 97.9 F 03/01/25 08:10 Pulse 89 03/01/25 08:10 Resp 16 03/01/25 08:10 BP 115/56 03/01/25 08:10 Pulse Ox 97 03/01/25 08:10 FiO2 40 02/19/25 18:26 Intake & Output 02/28/25 03/01/25 03/01/25 18:59 06:59 18:59 Intake Total 118 Output Total 750 1000 Balance -632 -1000 Weight 87.5 kg Intake: Oral 118 Output: Urine 750 1000 Other: Voiding Method Indwelling Catheter Indwelling Catheter Indwelling Catheter # Voids 1 # Bowel Movements 1 - Exam In general patient is alert and oriented x 3 in no apparent distress Head normocephalic and atraumatic Neck supple no JVD no goiter Lungs exam reveals a scattered crackles in both lung goodman no wheezing Heart exam reveals irregular heart sounds S1-S2 no gallops no murmurs Abdomen is soft nontender nondistended positive bowel sounds no hepatosplenomegaly Extremities no edema Neuro alert and orientated to 3 - Labs CBC & Chem 7: 02/28/25 06:09 03/01/25 06:59 Labs: Abnormal Lab Results - Last 24 Hours (Table) 03/01/25 Range/Units 06:59 Chloride 91 L (98-107) mmol/L Carbon Dioxide 38 H (22-30) mmol/L BUN 66 H (9-20) mg/dL Creatinine 7.75 H* (0.66-1.25) mg/dL Assessment and Plan Assessment: Shortness of breath secondary to acute CHF exacerbation End-stage renal disease. Patient is now agreeable to peritoneal dialysis schedule peritoneal dialysis catheter placement for this Friday Elevated troponins Acute on chronic CHF exacerbation History of essential hypertension History of anemia of chronic kidney disease History of atrial fibrillation maintained on Eliquis History of BPH History of gout History of hypothyroidism DVT prophylaxis Eliquis. GI prophylax Protonix Cardiology and nephrology services consulted Status post peritoneal catheter placement Peritoneal dialysis to start 03/01/2025
--- NOTE | 2025-03-01 15:15 | P.PN ---
Progress Note - Text Progress Note Date: 03/01/25 No acute events overnight. VSS General-NAD Abdomen-soft, NTND 89-year-old male s/p PD Catheter Placement. -Dialysis per nephrology. -Continue local wound care. Ammon Canales DO [facility] [phone]
[2025-03-01] MEDS: DIALYSIS INTRAPERIT SCH (23:01)
[2025-03-02] MEDS: DIALYSIS INTRAPERIT SCH (05:21)
[2025-03-02 09:09] LABS: Basophils # (A) 0.05 10*3/uL (0.00-0.10); Basophils % (A) 0.8 %; Eosinophils # (A) 0.48 10*3/uL (0.04-0.35); Eosinophils % (A) 7.3 %; HCT 25.6 % (39.6-50.0); HGB 8.1 g/dL (13.0-17.0); Immature Platelet Fraction 0.9 % (1.1-6.1); Lymphocytes # (A) 1.59 10*3/uL (0.90-5.00); Lymphocytes % (A) 24.1 %; MCH 23.4 pg (27.0-32.0); MCHC 31.6 g/dL (32.0-37.0); MCV 74.0 fL (80.0-97.0); Monocytes # (A) 0.68 10*3/uL (0.20-1.00); Monocytes % (A) 10.3 %; Neutrophils # (A) 3.78 10*3/uL (1.80-7.70); Neutrophils % (A) 57.2 %; Platelet Count 170 10*3/uL (140-440); RBC 3.46 10*6/uL (4.40-5.60); RDW 20.1 % (11.5-14.5); WBC 6.60 10*3/uL (4.50-10.00)
[2025-03-02 09:22] LABS: ALT <6 U/L (4-49); AST 23 U/L (17-59); African American GFR (CKD) 6 (>60 ml/min/1.73 sqM); Albumin 3.3 g/dL (3.5-5.0); Alkaline Phosphatase 78 U/L (38-126); Anion Gap 9 mmol/L; Blood Urea Nitrogen 68 mg/dL (9-20); Calcium 9.0 mg/dL (8.4-10.2); Carbon Dioxide 37 mmol/L (22-30); Chloride 90 mmol/L (98-107); Glucose 85 mg/dL (74-99); Magnesium 2.0 mg/dL (1.6-2.3); Non-African American GFR(CKD) 5 (>60 ml/min/1.73 sqM); Potassium 5.5 mmol/L (3.5-5.1); Sodium 136 mmol/L (137-145); Total Protein 6.1 g/dL (6.3-8.2)
--- NOTE | 2025-03-02 10:10 | P.PN ---
Subjective Patient is seen in follow-up for end-stage renal disease. PD catheter replaced this admission. On diuretics. Has Wang catheter. Nonoliguric. Denies chest pain or shortness of breath. PD was attempted yesterday. There was no problem with fell but unable to drain. She did have 2 bowel movements yesterday. Vital signs are stable. .General: No acute distress. HEENT: Head exam is unremarkable. LUNGS: No audible rhonchi or wheezes. HEART: Rate and Rhythm are regular. ABDOMEN: Nontender. EXTREMITITES: No edema. Objective - Vital Signs Vital signs: Vital Signs Temp 97.8 F 03/02/25 08:05 Pulse 71 03/02/25 08:05 Resp 18 03/02/25 08:05 BP 126/61 03/02/25 08:05 Pulse Ox 96 03/02/25 08:05 FiO2 40 02/19/25 18:26 Intake & Output 03/01/25 03/02/25 03/02/25 18:59 06:59 18:59 Intake Total 358 10 118 Output Total 700 750 Balance -342 -740 118 Intake: IV 10 Invasive Line 6 10 Oral 358 118 Output: Urine 700 750 Other: Voiding Method Indwelling Catheter Indwelling Catheter # Bowel Movements 1 - Labs CBC & Chem 7: 03/02/25 08:34 03/02/25 08:34 Labs: Abnormal Lab Results - Last 24 Hours (Table) 03/02/25 03/02/25 Range/Units 08:34 08:34 RBC 3.46 L (4.40-5.60) 10*6/uL Hgb 8.1 L (13.0-17.0) g/dL Hct 25.6 L (39.6-50.0) % MCV 74.0 L (80.0-97.0) fL MCH 23.4 L (27.0-32.0) pg MCHC 31.6 L (32.0-37.0) g/dL Eosinophils # 0.48 H (0.04-0.35) 10*3/uL Immature Plt Fraction 0.9 L (1.1-6.1) % Sodium 136 L (137-145) mmol/L Potassium 5.5 H (3.5-5.1) mmol/L Chloride 90 L (98-107) mmol/L Carbon Dioxide 37 H (22-30) mmol/L BUN 68 H (9-20) mg/dL Creatinine 8.32 H* (0.66-1.25) mg/dL Phosphorus 4.6 H (2.5-4.5) mg/dL Total Protein 6.1 L (6.3-8.2) g/dL Albumin 3.3 L (3.5-5.0) g/dL Assessment and Plan Plan: Assessment: 1. 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 PD catheter placed at this admission. 2. Acute hypoxic respiratory failure. Currently on 2 L nasal cannula. 3. Volume overload. Improved with diuresis. 4. Hypokalemia from diuresis. Now hyperkalemic. 5. Hypertension with chronic kidney disease. 6. Chronic kidney disease mineral bone disease. 7. Anemia of chronic kidney disease. On Aranesp. Plan: Maintain torsemide. Maintain metolazone. Stop Diamox. Avoid nephrotoxins. Add Lokelma. Maintain renal diet. Will attempt PD again with 500 cc exchange. If still unable to drain, will obtain x-ray and notify surgeon. Phosphorus level 4.6 dated March 02, 2025.
[2025-03-02] MEDS: SODIUM ZIRCONIUM CYCLOSILICATE 10 GM PACKET PO SCH (12:16)
--- NOTE | 2025-03-02 13:01 | P.PN ---
Subjective Progress Note Date: 03/02/25 SURGICAL PROGRESS NOTE CHIEF COMPLAINT: Shortness of breath HISTORY OF PRESENT ILLNESS: Patient postop day 5 status post PD catheter placement. Peritoneal dialysis attempted last night. They were able to fill but unable to drain. Per nurse there was about 40 cc that was drained and noted in the tubing. Patient denies any abdominal pain. He did have large bowel movements. PHYSICAL EXAM: VITAL SIGNS: Reviewed. GENERAL: Well-developed in no acute distress. ABDOMEN: Soft. Nondistended. Nontender. PD catheter dressing clean dry and intact ASSESSMENT: 1. Chronic kidney disease status post PD catheter placement PLAN: -Patient to have peritoneal dialysis attempted again today. Nursing staff to notify surgical service if unable to drain Physician Fire Code Inspector note has been reviewed by physician. Signing provider agrees with the documented findings, assessment, and plan of care. Attestation Patient postoperative from PD catheter placement. Patient did have low volume dialysis yesterday, however minimal amount of drainage output was noted. Patient denying any abdominal pain. He did have bowel function. Plan from nephrology is to attempt peritoneal dialysis again today. Ailyn Maki DO Objective - Vital Signs Vital signs: Vital Signs Temp 97.8 F 03/02/25 12:00 Pulse 48 L 03/02/25 12:00 Resp 16 03/02/25 12:00 BP 120/54 03/02/25 12:00 Pulse Ox 98 03/02/25 12:00 FiO2 40 02/19/25 18:26 Intake & Output 03/01/25 03/02/25 03/02/25 18:59 06:59 18:59 Intake Total 358 10 118 Output Total 700 750 Balance -342 -740 118 Intake: IV 10 Invasive Line 6 10 Oral 358 118 Output: Urine 700 750 Other: Voiding Method Indwelling Catheter Indwelling Catheter Indwelling Catheter # Bowel Movements 1 - Labs CBC & Chem 7: 03/02/25 08:34 03/02/25 08:34 Labs: Abnormal Lab Results - Last 24 Hours (Table) 03/02/25 03/02/25 Range/Units 08:34 08:34 RBC 3.46 L (4.40-5.60) 10*6/uL Hgb 8.1 L (13.0-17.0) g/dL Hct 25.6 L (39.6-50.0) % MCV 74.0 L (80.0-97.0) fL MCH 23.4 L (27.0-32.0) pg MCHC 31.6 L (32.0-37.0) g/dL Eosinophils # 0.48 H (0.04-0.35) 10*3/uL Immature Plt Fraction 0.9 L (1.1-6.1) % Sodium 136 L (137-145) mmol/L Potassium 5.5 H (3.5-5.1) mmol/L Chloride 90 L (98-107) mmol/L Carbon Dioxide 37 H (22-30) mmol/L BUN 68 H (9-20) mg/dL Creatinine 8.32 H* (0.66-1.25) mg/dL Phosphorus 4.6 H (2.5-4.5) mg/dL Total Protein 6.1 L (6.3-8.2) g/dL Albumin 3.3 L (3.5-5.0) g/dL
[2025-03-03 08:29] LABS: African American GFR (CKD) 6 (>60 ml/min/1.73 sqM); Anion Gap 8 mmol/L; Blood Urea Nitrogen 72 mg/dL (9-20); Calcium 8.4 mg/dL (8.4-10.2); Carbon Dioxide 37 mmol/L (22-30); Chloride 92 mmol/L (98-107); Glucose 98 mg/dL (74-99); Non-African American GFR(CKD) 5 (>60 ml/min/1.73 sqM); Potassium 5.4 mmol/L (3.5-5.1); Sodium 137 mmol/L (137-145)
[2025-03-03] MEDS: TORSEMIDE 20 MG TAB PO SCH (08:29)
--- NOTE | 2025-03-03 10:22 | P.PN ---
Subjective Patient is seen in follow-up for end-stage renal disease. PD catheter replaced this admission. On diuretics. Has Wang catheter. Nonoliguric. Denies chest pain or shortness of breath. Tolerated PD exchange well yesterday. Vital signs are stable. .General: No acute distress. HEENT: Head exam is unremarkable. LUNGS: No audible rhonchi or wheezes. HEART: Rate and Rhythm are regular. ABDOMEN: Nontender. EXTREMITITES: No edema. Objective - Vital Signs Vital signs: Vital Signs Temp 98.0 F 03/03/25 04:00 Pulse 72 03/03/25 04:00 Resp 16 03/03/25 04:00 BP 117/58 03/03/25 04:00 Pulse Ox 99 03/03/25 04:00 FiO2 40 02/19/25 18:26 Intake & Output 03/02/25 03/03/25 03/03/25 18:59 06:59 18:59 Intake Total 358 240 360 Output Total 1100 850 Balance -742 -610 360 Weight 90.5 kg Intake: Oral 358 240 360 Output: Urine 1100 850 Other: Voiding Method Indwelling Catheter Indwelling Catheter # Bowel Movements 1 - Labs CBC & Chem 7: 03/02/25 08:34 03/03/25 06:57 Labs: Abnormal Lab Results - Last 24 Hours (Table) 03/03/25 Range/Units 06:57 Potassium 5.4 H (3.5-5.1) mmol/L Chloride 92 L (98-107) mmol/L Carbon Dioxide 37 H (22-30) mmol/L BUN 72 H (9-20) mg/dL Creatinine 8.08 H* (0.66-1.25) mg/dL Assessment and Plan Plan: Assessment: 1. 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 PD catheter placed at this admission. Patient has been tolerating low volume exchanges. 2. Acute hypoxic respiratory failure. Currently on 2 L nasal cannula. 3. Volume overload. Improved with diuresis. 4. Hypokalemia from diuresis. Now potassium on the higher end. 5. Hypertension with chronic kidney disease. Controlled. 6. Chronic kidney disease mineral bone disease. 7. Anemia of chronic kidney disease. On Aranesp. Plan: Maintain torsemide. Maintain metolazone. Avoid nephrotoxins. Maintain Lokelma. Maintain renal diet. Phosphorus level 4.6 dated March 02, 2025. Potential discharge home today. Patient will start PD training on Friday. Case discussed with patient and family present at bedside.
[2025-03-03] MEDS: SODIUM ZIRCONIUM CYCLOSILICATE 10 GM PACKET PO SCH (11:54)
--- NOTE | 2025-03-03 12:22 | P.PN ---
Subjective Progress Note Date: 03/03/25 SURGICAL PROGRESS NOTE CHIEF COMPLAINT: Shortness of breath HISTORY OF PRESENT ILLNESS: Patient postop day #6 status post PD catheter placement. Peritoneal dialysis catheter is functioning appropriately. Discussed with nephrology service. Patient denies abdominal pain. Denies any nausea or vomiting. PHYSICAL EXAM: VITAL SIGNS: Reviewed. GENERAL: Well-developed in no acute distress. ABDOMEN: Soft. Nondistended. Nontender. PD catheter dressing clean dry and intact ASSESSMENT: 1. Chronic kidney disease status post PD catheter placement PLAN: -Patient can be discharged from surgical standpoint -Nephrology planning to start PD training on Friday Physician Ecological Risk Assessor note has been reviewed by physician. Signing provider agrees with the documented findings, assessment, and plan of care. Objective - Vital Signs Vital signs: Vital Signs Temp 97.6 F 03/03/25 08:00 Pulse 70 03/03/25 08:00 Resp 14 03/03/25 08:00 BP 94/49 03/03/25 08:00 Pulse Ox 90 L 03/03/25 08:00 FiO2 40 02/19/25 18:26 Intake & Output 03/02/25 03/03/25 03/03/25 18:59 06:59 18:59 Intake Total 358 240 360 Output Total 1100 850 Balance -742 -610 360 Weight 90.5 kg Intake: Oral 358 240 360 Output: Urine 1100 850 Other: Voiding Method Indwelling Catheter Indwelling Catheter Indwelling Catheter # Bowel Movements 1 - Labs CBC & Chem 7: 03/02/25 08:34 03/03/25 06:57 Labs: Abnormal Lab Results - Last 24 Hours (Table) 03/03/25 Range/Units 06:57 Potassium 5.4 H (3.5-5.1) mmol/L Chloride 92 L (98-107) mmol/L Carbon Dioxide 37 H (22-30) mmol/L BUN 72 H (9-20) mg/dL Creatinine 8.08 H* (0.66-1.25) mg/dL
--- NOTE | 2025-03-03 13:24 | P.DS ---
Providers Date of admission: 02/19/25 14:30 Expected date of discharge: 03/03/25 Attending physician: Abhilash Michel Consults: 02/19/25 14:27 Consult Physician Routine Consulting Provider: Eileen Barajas Consult Reason/Comments: CKD, CHF Do you want consulting provider notified?: Yes 02/21/25 17:03 Consult Physician Routine Consulting Provider: Reena Murrell Consult Reason/Comments: Shortness of breath Do you want consulting provider notified?: Yes 02/21/25 18:03 Consult Physician Routine Consulting Provider: Ailyn Maki Consult Reason/Comments: PD cath placement Do you want consulting provider notified?: Yes, Notify in am Primary care physician: Abhilash Michel [facility] Course: Discharge diagnosis Shortness of breath secondary to acute CHF exacerbation End-stage renal disease. Patient is now agreeable to peritoneal dialysis schedule peritoneal dialysis catheter placement for this Friday Elevated troponins Acute on chronic CHF exacerbation History of essential hypertension History of anemia of chronic kidney disease History of atrial fibrillation maintained on Eliquis History of BPH History of gout History of hypothyroidism Hospital course Jayce Feldman is a 89-year-old male patient who presented with complaints of increased shortness of breath. Patient has a past medical history of end-stage renal disease and recently has agreed to initiate peritoneal dialysis. Patient reports he has plans for appointment on Friday to receive peritoneal dialysis catheter. Patient also has past medical history of atrial fibrillation and CHF. Chest x-ray completed showing acute bilateral cardiopulmonary process most likely CHF. Lab work completed showing white blood cell 6.71, hemoglobin 8.2, creatinine 3.9, bun 54, potassium 3.2. Troponin 0.075, 0.086 and 0.097. BNP elevated at 12,600. Patient did receive IV Lasix in ER. At this time patient will be admitted cardiology and nephrology services have been consulted. 2D echo has been ordered Home meds resumed. Patient complaints of shortness of breath. Patient denies chest pain. Patient denies nausea vomiting or diarrhea. Patient denies any urinary burning or frequency. Current vital signs temp 97, heart rate 76, respiratory rate 22, blood pressure 153/73 with pulse ox of 95% on 4 L On 02/21/2025 patient was seen and examined in the ICU he is alert and oriented x 3 in no apparent distress he is complaining of shortness of breath otherwise he denies any complaints at this time there is no fever or chills no headache or dizziness no chest pain no cough no nausea or vomiting no abdominal pain no diarrhea and no urinary symptoms. Patient is followed by multiple specialist including nephrology, cardiology consultation for critical care was initiated. Prognosis is guarded On 02/22/2025 patient is alert and oriented x 3. Patient remains on Lasix drip. Tentative plans for peritoneal dialysis catheter placement. Current vital signs temp 98.3, heart rate 78, respiratory rate 16, blood pressure 144/55 with pulse ox of 99% on 2 L. Patient having good urine output at this time. Patient denies chest pain or shortness of breath. Patient denies nausea vomiting or diarrhea. Patient denies any urinary burning or frequency On 02/23/2025 patient was seen and examined on the medical floor he is alert and oriented x 3 in no apparent distress he is still complaining of shortness of breath with any activity otherwise he denies any complaints there is no fever or chills no headache or dizziness no chest pain no nausea or vomiting no abdominal pain no diarrhea and no urinary symptoms. Plan is for peritoneal dialysis catheter placement during this admission, surgery, cardiology and nephrology are following On 02/24/2025 patient was seen and examined on the medical floor he is alert and oriented x 3 in no apparent distress there is no fever or chills no headache or dizziness no chest pain no shortness of breath no cough no nausea or vomiting no abdominal pain no diarrhea no urinary symptoms. Nephrology are following plan is to proceed with peritoneal dialysis On 02/25/2025 patient was seen and examined on the medical floor he is alert and oriented x 3 in no apparent distress there is no fever or chills no headache or dizziness no chest pain no shortness of breath no cough no nausea or vomiting no abdominal pain no diarrhea no urinary symptoms. Plans are for peritoneal dialysis catheter placement today. 02/26/2025 patient was seen and examined on the medical floor he is alert and oriented in no distress he is complaining of constipation complaining of generalized weakness otherwise he denies any complaint there is no fever or chills no headache or dizziness no chest pain no shortness of breath no cough no nausea or vomiting no abdominal pain no diarrhea and no urinary symptoms. He was switched to IV Lasix 60 mg q 12 hours On 02/27/2025 patient was seen and examined on the medical floor he is alert and oriented x 3 in no apparent distress he is still complaining of constipation and complaining of severe weakness with difficulty standing and walking otherwise he denies any complaints there is no fever or chills no headache or dizziness no chest pain no cough no nausea or vomiting no abdominal pain no diarrhea no urinary symptoms. On 02/28/2025 patient was seen on the medical floor he is alert and oriented x 3 in no apparent distress vital examination reveals a temperature of 97.8 pulse 71 respiration 18 blood pressure 110/43 pulse ox 98% on 3 L nasal cannula white blood count is 7.12 hemoglobin 7.7 platelet count 164 BUN 70 creatinine 6.47 patient is maintained on IV Lasix oral metolazone and Diamox was added to regimen today. Plan per nephrology is to continue his current regimen and start peritoneal dialysis training as outpatient' On 03/01/2025 patient is alert and oriented x 3. Lactulose given for constipation plans to start peritoneal dialysis today per nephrology services. Patient denies chest pain or shortness of breath. Patient denies nausea vomiting or diarrhea. Patient denies any urinary burning or frequency current vital signs temp 97.9, heart 89, respiratory rate 16, blood pressure 115/56 with pulse ox of 97% on 2 L On 03/03/2025 patient is alert and oriented x 3. Per nephrology services patient may be discharged home today. PD training on Friday patient maintained on torsemide and Lokelma. Patient denies chest pain or shortness of breath. Patient denies nausea vomiting or diarrhea. Patient denies any urinary burning or frequency Patient Condition at Discharge: Stable Plan - Discharge Summary New Discharge Prescriptions: New metOLazone [Zaroxolyn] 5 mg PO DAILY 30 Days #30 tab Sodium Zirconium Cyclosilicate [Lokelma] 10 gm PO DAILY 4 Days #4 packet Torsemide [Demadex] 60 mg PO DAILY 30 Days #90 tab Continue Montelukast [Singulair] 10 mg PO HS Levothyroxine Sodium [Synthroid] 25 mcg PO DAILY Apixaban [Eliquis] 2.5 mg PO BID Aspirin 81 mg PO DAILY chew Pantoprazole [Protonix] 40 mg PO HS calcitrioL [Rocaltrol] 0.5 mcg PO Q2D Tamsulosin [Flomax] 0.4 mg PO DAILY amLODIPine [Norvasc] 5 mg PO DAILY Cetirizine HCl 10 mg PO DAILY Atorvastatin [Lipitor] 80 mg PO HS hydrALAZINE HCL [Apresoline] 25 mg PO DAILY Ferrous Sulfate [Iron (65 MG Elemental)] 325 mg PO DAILY allopurinoL 100 mg PO DAILY Metoprolol Succinate (ER) [Toprol XL] 25 mg PO DAILY Sodium Bicarbonate Tab 650 mg PO BID 30 Days #60 tab HYDROcodone/APAP 10-325MG [[place] 10-325] 1 tab PO Q6H PRN PRN Reason: Pain Diphenox-Atrop 2.5-0.025 mg [Lomotil] 1 tab PO BID Vitamin D3(Unknown Dose) 1 cap PO HS Finasteride [Proscar] 5 mg PO DAILY Darbepoetin Todd [Aranesp] 40 mcg SQ Q14D Vitamin B Complex W/Vitamin C 1 tab PO HS Dicyclomine [Bentyl] 20 mg PO QID PRN PRN Reason: Gi Upset polyethylene glycoL 3350 [Miralax] 17 gm PO DAILY PRN PRN Reason: Constipation Discontinued Furosemide [Lasix] 40 mg PO DAILY Discharge Medication List Levothyroxine Sodium [Synthroid] 25 mcg PO DAILY 08/11/17 [History] Montelukast [Singulair] 10 mg PO HS 08/11/17 [History] Apixaban [Eliquis] 2.5 mg PO BID 01/30/18 [History] Aspirin 81 mg PO DAILY chew 02/04/18 [Rx] Pantoprazole [Protonix] 40 mg PO HS 10/20/19 [History] Cetirizine HCl 10 mg PO DAILY 09/06/20 [History] Tamsulosin [Flomax] 0.4 mg PO DAILY 09/06/20 [History] amLODIPine [Norvasc] 5 mg PO DAILY 09/06/20 [History] calcitrioL [Rocaltrol] 0.5 mcg PO Q2D 09/06/20 [History] Atorvastatin [Lipitor] 80 mg PO HS 12/20/21 [History] Darbepoetin Todd [Aranesp] 40 mcg SQ Q14D 01/18/25 [History] Diphenox-Atrop 2.5-0.025 mg [Lomotil] 1 tab PO BID 01/18/25 [History] Ferrous Sulfate [Iron (65 MG Elemental)] 325 mg PO DAILY 01/18/25 [History] Finasteride [Proscar] 5 mg PO DAILY 01/18/25 [History] HYDROcodone/APAP 10-325MG [[place] 10-325] 1 tab PO Q6H PRN 01/18/25 [History] Metoprolol Succinate (ER) [Toprol XL] 25 mg PO DAILY 01/18/25 [History] Vitamin B Complex W/Vitamin C 1 tab PO HS 01/18/25 [History] Vitamin D3(Unknown Dose) 1 cap PO HS 01/18/25 [History] allopurinoL 100 mg PO DAILY 01/18/25 [History] hydrALAZINE HCL [Apresoline] 25 mg PO DAILY 01/18/25 [History] Sodium Bicarbonate Tab 650 mg PO BID 30 Days #60 tab 01/21/25 [Rx] Dicyclomine [Bentyl] 20 mg PO QID PRN 02/19/25 [History] polyethylene glycoL 3350 [Miralax] 17 gm PO DAILY PRN 02/19/25 [History] Sodium Zirconium Cyclosilicate [Lokelma] 10 gm PO DAILY 4 Days #4 packet 03/03/25 [Rx] Torsemide [Demadex] 60 mg PO DAILY 30 Days #90 tab 03/03/25 [Rx] metOLazone [Zaroxolyn] 5 mg PO DAILY 30 Days #30 tab 03/03/25 [Rx] Follow up Appointment(s)/Referral(s): [facility], [NON-STAFF] - Abhilash Michel MD [Primary Care Provider] - 1-2 days Patrick Castellanos DO [STAFF PHYSICIAN] - 1 Week Activity/Diet/Wound Care/Special Instructions: Patient requires a wheelchair to manage ADL's that cannot be done with cane or walker, due to CHF. He is able to self propel. Discharge Disposition: HOME WITH HOME HEALTH SERVICES
[2025-03-03 13:46] VITALS: RESP 18
[2025-03-03 18:09] VITALS: BP 124/62; PULSE 70; TEMP 97.6
[2025-03-04] MEDS ORDERED: SODIUM ZIRCONIUM CYCLOSILICATE 10 GM PACKET PO SCH (09:00)
== END 2025-03-03 21:59 | disposition home health service (06) | DRG 981 ==
LOC: EC 12:54 → 3SCARD 14:30 → 2SICU 02-20 17:59 → 3SCARD 02-22 00:54
PROVIDERS: ADMIT Internal Medicine; ATTEND Internal Medicine
PROC: 5A09357 Assistance with Respiratory Ventilation, Less than 24 Consecutive Hours, Continuous Positive Airway Pressure (ICD-10-PCS; 2025-02-19)
PROC: 0WHG43Z Insertion of Infusion Device into Peritoneal Cavity, Percutaneous Endoscopic Approach (ICD-10-PCS; principal; 2025-02-25 13:15)
PROC: 3E1M39Z Irrigation of Peritoneal Cavity using Dialysate, Percutaneous Approach (ICD-10-PCS; 2025-03-01)
DX: I13.2 Hypertensive heart and chronic kidney disease with heart failure and with stage 5 chronic kidney disease, or end stage renal disease (principal); I50.33 Acute on chronic diastolic (congestive) heart failure; N18.6 End stage renal disease; J96.01 Acute respiratory failure with hypoxia; E87.3 Alkalosis; I27.22 Pulmonary hypertension due to left heart disease; D63.1 Anemia in chronic kidney disease; Z99.2 Dependence on renal dialysis; J44.9 Chronic obstructive pulmonary disease, unspecified; E03.9 Hypothyroidism, unspecified; I08.0 Rheumatic disorders of both mitral and aortic valves; I48.0 Paroxysmal atrial fibrillation; E78.5 Hyperlipidemia, unspecified; E87.5 Hyperkalemia; E87.6 Hypokalemia; I25.10 Atherosclerotic heart disease of native coronary artery without angina pectoris; H91.90 Unspecified hearing loss, unspecified ear; K21.9 Gastro-esophageal reflux disease without esophagitis; M10.9 Gout, unspecified; I49.3 Ventricular premature depolarization; K59.00 Constipation, unspecified; N40.0 Benign prostatic hyperplasia without lower urinary tract symptoms; T50.2X5A Adverse effect of carbonic-anhydrase inhibitors, benzothiadiazides and other diuretics, initial encounter; G47.30 Sleep apnea, unspecified; M89.8X9 Other specified disorders of bone, unspecified site; Z99.81 Dependence on supplemental oxygen; Z79.01 Long term (current) use of anticoagulants; Z79.82 Long term (current) use of aspirin; Z79.890 Hormone replacement therapy; Z79.899 Other long term (current) drug therapy; Z95.5 Presence of coronary angioplasty implant and graft; Z87.891 Personal history of nicotine dependence; Z96.652 Presence of left artificial knee joint; Z88.0 Allergy status to penicillin; Z88.7 Allergy status to serum and vaccine
CPT/HCPCS: 36415; 71045; 80048; 80053; 82728; 83540; 83550; 83735; 83880; 84100; 84484; 85025; 85610; 85730; 93005; 93306; 94660; 96374; 96376; 99291

== ENCOUNTER → 2025-03-29 | Outpatient (CLI) | payer MEDICARE ==
--- NOTE | 2025-03-29 15:55 | XR ---
EXAMINATION TYPE: XR abdomen 1V DATE OF EXAM: 03/29/2025 COMPARISON: NONE CLINICAL INDICATION: Male, 89 years old with history of T85.621A, K59.00; TECHNIQUE: XR abdomen 1V views of the abdomen. FINDINGS: Postsurgical change left femur. Bilateral hip arthropathy. 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 Vascular calcifications. Generalized demineralization. There is a catheter looped within the lower abdomen. Metallic density may be related to chronic forei gn body within the right upper quadrant. Bowel gas pattern nonspecific. IMPRESSION: 1. There is intra-abdominal catheter which is looped with the tip in the right lower abdomen. 2. Nonspecific abdomen. [facility], , 03/29/2025 3:52 PM
== END | disposition home or self-care (01) ==
LOC: RADXRMAIN 15:14
PROVIDERS: ATTEND Internal Medicine Nephrology
DX: T85.621A Displacement of intraperitoneal dialysis catheter, initial encounter (principal); K59.00 Constipation, unspecified
CPT/HCPCS: 74018